=== PATIENT | male | born 1965 | race Two or more races ===

== ENCOUNTER 2020-01-23 13:27 | Outpatient (REF) | payer MEDICARE, MEDICAID, SELFPAY ==
--- NOTE | 2020-01-23 | MR_ITS ---
EXAMINATION: MR ABDOMEN WITHOUT AND WITH CONTRAST CLINICAL INFORMATION: Follow-up renal lesion. History of renal stones. COMPARISON: Previous renal ultrasound most recent September [address] of the abdomen and pelvis without contrast August 2018 and with contrast February 2015 TECHNIQUE: MR abdomen was performed without and with use of 8.5 mL intravenous Gadavist gadolinium contrast. Postcontrast images are performed in multiphase dynamic sequences. Imaging was performed in 3 planes. FINDINGS: LUNG BASES: The visualized lung bases are unremarkable. LIVER, GALLBLADDER, AND BILIARY TREE: The liver is normal in size, smooth in contour, and normal in signal. No focal hepatic lesion or biliary ductal dilatation is present. The gallbladder is unremarkable with no evidence of gallbladder wall thickening, or obvious pericholecystic inflammatory changes. PANCREAS: There are tiny cysts in the body and tail of the pancreas measuring 2 mm, for example axial image 11 series 4. The pancreas is otherwise unremarkable. The main pancreatic duct is normal. SPLEEN: Normal. ADRENAL GLANDS: Normal. KIDNEYS AND URETERS: There is a complex cystic lesion in the lower pole of the right kidney. This is heterogeneous in signal with low and high areas of signal on T1- and T2-weighted sequences. This is partially solid and partially cystic. Solid component is in the cortex and cystic component extends into the peripelvic region of the lower pole. Cystic component has areas of wall thickening and slightly thickened septations. This demonstrates gradual enhancement following intravenous contrast. This measures 2.8 x 4 cm in transverse and AP dimension and 3.5 cm in longitudinal dimension. This is new from contrast-enhanced CT scan of the abdomen and pelvis February 2015. In retrospect, this may be seen on noncontrast enhanced CT from August 2018. There is a small cyst in the lower pole of the left kidney. The kidneys are otherwise unremarkable. GASTROINTESTINAL TRACT: No bowel obstruction. No ascites or fluid collection. ABDOMINAL WALL: No significant hernia is appreciated. LYMPH NODES: No lymphadenopathy. VASCULAR: Unremarkable. OSSEOUS STRUCTURES: There are postsurgical changes to the lower lumbar spine from L3 to L5. IMPRESSION: 2.8 x 4 x 3.5 cm complex cystic lesion in the lower pole of the right kidney which demonstrates heterogeneous signal on T1- and T2-weighted sequences and gradual mild enhancement, Bosniak type IV. Appearance is worrisome for possible neoplasm. Tissue sampling is recommended. 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
== END 2020-01-23 13:28 | disposition home or self-care (01) ==
LOC: HO.MRI 13:27
PROVIDERS: Visit Provider Urology
DX: N20.0 Calculus of kidney (principal)
CPT/HCPCS: 74183

== ENCOUNTER → 2020-02-01 13:19 | Outpatient (BNVA) | payer MEDICARE, MEDICAID, SELFPAY | PROVIDERS: PCP Internal Medicine; Visit Provider Urology | DX: N28.89 Other specified disorders of kidney and ureter (principal); N20.0 Calculus of kidney; N40.1 Benign prostatic hyperplasia with lower urinary tract symptoms; N13.8 Other obstructive and reflux uropathy | CPT/HCPCS: 99214 ==

== ENCOUNTER 2020-02-15 11:11 | Outpatient (REF) | payer MEDICARE, MEDICAID, SELFPAY ==
[2020-02-15 13:32] LABS: Blood Urea Nitrogen 13 mg/dL (9-16); Estimated Glomerular Filt Rate > 60
== END 2020-02-15 11:12 | disposition home or self-care (01) ==
LOC: HO.LAB 11:11
PROVIDERS: PCP Internal Medicine; Visit Provider Urology
DX: N28.89 Other specified disorders of kidney and ureter (principal)
CPT/HCPCS: 82565; 84520

== ENCOUNTER 2020-02-15 11:35 | Day surgery (SDC) | payer MEDICARE, MEDICAID, SELFPAY ==
[2020-02-15 12:10] VITALS: BMI 30.4
[2020-02-15 12:15] LABS: MANUAL DIFF FLAG NO
--- NOTE | 2020-02-15 12:16 | CT_ITS ---
EXAMINATION: CT-GUIDED RIGHT KIDNEY BIOPSY CLINICAL INFORMATION: Complex cystic right renal lesion COMPARISON: Previous renal ultrasound September 2019 and MR of the abdomen January [address] of the abdomen and pelvis August 2018 TECHNIQUE: Procedure and risks and benefits of bleeding, infection and injury to the kidney were discussed and informed consent was obtained. The patient was positioned in the prone position. Limited axial images through the kidneys were performed. The left flank was prepped and draped in the usual sterile fashion. The skin and soft tissues were anesthetized with 1% lidocaine plain. Using CT guidance and a coaxial system, access to the slightly high attenuation lesion in the lower pole of the left kidney was obtained. 3 20-gauge core biopsies were obtained. As small fragments of tissue were obtained, an additional 22-gauge FNA specimen was also obtained. The patient received Versed 2.5 mg and fentanyl 125 mcg intravenously during the procedure. Total sedation time was 20 minutes. Patient dose 1 5 3 mg/cm. FINDINGS: There is a 3 cm slightly high attenuation lesion in the lower pole of the right kidney that was targeted for biopsy and fine-needle aspiration. There are small bilateral renal stones. There are postsurgical changes to the lower lumbar spine. CT/CT biopsy renal RT IMPRESSION: CT-guided right renal cortical biopsy and fine-needle aspiration.
[2020-02-15 12:19] LABS: Basophils Percent Auto 0.9 % (0-2); Eosinophils Absolute Auto 0.3 X10*3/uL (0.0-0.4); Eosinophils Percent Auto 5.6 % (0-4); Hemoglobin 13.6 g/dl (14.0-18.0); Imm Gran Abs Auto 0.01 X10*3/uL (0.00-0.03); Imm Gran Pct Auto 0.2 % (0.0-0.4); Lymphocytes Percent Auto 42.6 % (20-40); Mean Corpuscular Hemoglobin 29.4 pg (27.0-33.0); Mean Corpuscular Volume 86.6 fL (80-98); Mean Platelet Volume 10.3 fL (9.4-12.4); Monocytes Absolute Auto 0.3 X10*3/uL (0.1-1.2); Monocytes Percent Auto 6.4 % (2-11); Neutrophils Absolute Auto 2.1 X10*3/uL (2.0-8.3); Neutrophils Percent Auto 44.3 % (45-73); Platelet Count 143 X10*3/uL (160-400); Red Blood Count 4.62 X10*6/uL (4.60-5.80); Red Cell Distribution Width 11.9 % (11.0-16.0); White Blood Count 4.7 X10*3/uL (4.8-10.8)
[2020-02-15 12:21] LABS: INTERNATIONAL NORM RATIO 1.1 (0.9-1.1)
[2020-02-15 12:23] LABS: Partial Thromboplastin Time 35.3 SEC (24.1-38.0)
--- NOTE | 2020-02-15 12:30 | CT_ITS ---
EXAMINATION: CT-GUIDED RIGHT KIDNEY BIOPSY CLINICAL INFORMATION: Complex cystic right renal lesion COMPARISON: Previous renal ultrasound September 2019 and MR of the abdomen January [address] of the abdomen and pelvis August 2018 TECHNIQUE: Procedure and risks and benefits of bleeding, infection and injury to the kidney were discussed and informed consent was obtained. The patient was positioned in the prone position. Limited axial images through the kidneys were performed. The left flank was prepped and draped in the usual sterile fashion. The skin and soft tissues were anesthetized with 1% lidocaine plain. Using CT guidance and a coaxial system, access to the slightly high attenuation lesion in the lower pole of the left kidney was obtained. 3 20-gauge core biopsies were obtained. As small fragments of tissue were obtained, an additional 22-gauge FNA specimen was also obtained. The patient received Versed 2.5 mg and fentanyl 125 mcg intravenously during the procedure. Total sedation time was 20 minutes. Patient dose 1 5 3 mg/cm. FINDINGS: There is a 3 cm slightly high attenuation lesion in the lower pole of the right kidney that was targeted for biopsy and fine-needle aspiration. There are small bilateral renal stones. There are postsurgical changes to the lower lumbar spine. CT/CT guided aspiration renal IMPRESSION: CT-guided right renal cortical biopsy and fine-needle aspiration.
--- NOTE | 2020-02-15 12:30 | CT_ITS ---
EXAMINATION: CT-GUIDED RIGHT KIDNEY BIOPSY CLINICAL INFORMATION: Complex cystic right renal lesion COMPARISON: Previous renal ultrasound September 2019 and MR of the abdomen January [address] of the abdomen and pelvis August 2018 TECHNIQUE: Procedure and risks and benefits of bleeding, infection and injury to the kidney were discussed and informed consent was obtained. The patient was positioned in the prone position. Limited axial images through the kidneys were performed. The left flank was prepped and draped in the usual sterile fashion. The skin and soft tissues were anesthetized with 1% lidocaine plain. Using CT guidance and a coaxial system, access to the slightly high attenuation lesion in the lower pole of the left kidney was obtained. 3 20-gauge core biopsies were obtained. As small fragments of tissue were obtained, an additional 22-gauge FNA specimen was also obtained. The patient received Versed 2.5 mg and fentanyl 125 mcg intravenously during the procedure. Total sedation time was 20 minutes. Patient dose 1 5 3 mg/cm. FINDINGS: There is a 3 cm slightly high attenuation lesion in the lower pole of the right kidney that was targeted for biopsy and fine-needle aspiration. There are small bilateral renal stones. There are postsurgical changes to the lower lumbar spine. CT/CT guided needle placement IMPRESSION: CT-guided right renal cortical biopsy and fine-needle aspiration.
[2020-02-15 13:45] VITALS: BP 147/96; PULSE 55; RESP 20; TEMP 37; O2SAT 97
--- NOTE | 2020-02-15 13:45 | HO.RADPN ---
RADIOLOGY Narrative Narrative: Right cystic renal mass core biopsy and fna using coaxial system and CT guidance. 3 20g core biopsies and one 22g fna obtained. No complication.
[2020-02-15] MEDS: Lidocaine HCl 1 % 20 ML VIAL 10 ML SUBCUT (14:01)
[2020-02-15 14:15] VITALS: BP 148/90; PULSE 55; RESP 18; O2SAT 97
[2020-02-15 14:45] VITALS: BP 142/90; PULSE 63; RESP 18; O2SAT 97
[2020-02-15 15:15] VITALS: BP 133/80; PULSE 62; RESP 18; O2SAT 96
[2020-02-15 15:44] VITALS: BP 141/90; PULSE 62; RESP 18; TEMP 36.2; O2SAT 96
== END 2020-02-15 15:55 | disposition home or self-care (01) ==
PROVIDERS: Radiology Diagnostic Radiology; PCP Internal Medicine; Visit Provider Urology
DX: C64.1 Malignant neoplasm of right kidney, except renal pelvis (principal); Z87.442 Personal history of urinary calculi; I10 Essential (primary) hypertension; J45.40 Moderate persistent asthma, uncomplicated; F17.210 Nicotine dependence, cigarettes, uncomplicated
CPT/HCPCS: 10009; 36415; 50200; 77012; 82565; 84520; 85025; 85610; 85730; 88173; 88305; 88341; 88342; 99152; J2250; J3010

== ENCOUNTER → 2020-02-22 08:55 | Outpatient (BNVA) | payer MEDICARE, MEDICAID, SELFPAY | PROVIDERS: PCP Internal Medicine; Visit Provider Urology | DX: C64.1 Malignant neoplasm of right kidney, except renal pelvis (principal); Z98.890 Other specified postprocedural states | CPT/HCPCS: 99212 ==

== ENCOUNTER → 2020-04-08 10:54 | Outpatient (BNVA) | payer MEDICARE, MEDICAID, SELFPAY | PROVIDERS: Visit Provider Urology | DX: C64.1 Malignant neoplasm of right kidney, except renal pelvis (principal) | CPT/HCPCS: Q3014 ==

== ENCOUNTER 2020-05-06 10:05 | Outpatient (REF) | payer MEDICARE, MEDICAID, SELFPAY ==
[2020-05-06 11:10] LABS: Anion Gap 13 (12-20); Blood Urea Nitrogen 14 mg/dL (9-16); Calcium 9.1 mg/dL (8.4-10.2); Carbon Dioxide 28 mmol/L (22-29); Chloride 103 mmol/L (96-108); Estimated Glomerular Filt Rate > 60; Glucose Random 105 mg/dL (60-115); Potassium 4.7 mmol/l (3.3-5.1); Sodium 139 mmol/L (135-145)
== END 2020-05-06 10:06 | disposition home or self-care (01) ==
LOC: HO.LAB 10:05
PROVIDERS: PCP Internal Medicine; Visit Provider Urology
DX: C64.1 Malignant neoplasm of right kidney, except renal pelvis (principal)
CPT/HCPCS: 36415; 80048

== ENCOUNTER 2020-05-28 10:54 | Outpatient (REF) | payer MEDICARE, MEDICAID, SELFPAY | END 2020-05-28 10:55 | disposition home or self-care (01) | LOC: HO.LAB 10:54 | PROVIDERS: Visit Provider Internal Medicine | DX: Z20.822 Contact with and (suspected) exposure to COVID-19 (principal) | CPT/HCPCS: 36415; C9803; U0003; U0005 ==

== ENCOUNTER 2020-06-09 10:16 | Outpatient (REF) | payer MEDICARE, MEDICAID, SELFPAY | END 2020-06-09 10:17 | disposition home or self-care (01) | LOC: HO.LAB 10:16 | PROVIDERS: PCP Internal Medicine; Visit Provider Internal Medicine | DX: Z20.822 Contact with and (suspected) exposure to COVID-19 (principal) | CPT/HCPCS: 36415; C9803; U0003; U0005 ==

== ENCOUNTER → 2020-11-28 09:27 | Outpatient (BNVA) | payer MEDICARE, MEDICAID, SELFPAY | PROVIDERS: PCP Internal Medicine; Visit Provider Urology | DX: N28.1 Cyst of kidney, acquired (principal); N40.1 Benign prostatic hyperplasia with lower urinary tract symptoms; N13.8 Other obstructive and reflux uropathy; C64.9 Malignant neoplasm of unspecified kidney, except renal pelvis; M54.9 Dorsalgia, unspecified; M75.81 Other shoulder lesions, right shoulder; I10 Essential (primary) hypertension; F17.210 Nicotine dependence, cigarettes, uncomplicated | CPT/HCPCS: 99212 ==

== ENCOUNTER 2020-12-03 08:19 | Outpatient (REF) | payer MEDICARE, MEDICAID, SELFPAY ==
[2020-12-03 10:04] LABS: Blood Urea Nitrogen 17 mg/dL (9-16); Estimated Glomerular Filt Rate 48
== END 2020-12-03 08:20 | disposition home or self-care (01) ==
LOC: HO.LAB 08:19
PROVIDERS: PCP Internal Medicine; Visit Provider Urology
DX: R39.15 Urgency of urination (principal); C64.9 Malignant neoplasm of unspecified kidney, except renal pelvis
CPT/HCPCS: 36415; 82565; 84520

== ENCOUNTER 2020-12-04 15:23 | Outpatient (REF) | payer MEDICARE, MEDICAID, SELFPAY ==
--- NOTE | ~2020-12-04 | CT_ITS ---
EXAMINATION: CT ABDOMEN WITHOUT AND WITH CONTRAST CLINICAL INFORMATION: Malignant neoplasm of unspecified kidney. COMPARISON: MR abdomen 01/23/2020 TECHNIQUE: Contiguous axial thin section helical images of the abdomen were performed before and after the administration of oral contrast and 85 mL of Omnipaque 350 intravenous contrast. The data set was reformatted in the coronal and sagittal planes and reviewed on an independent workstation. This CT examination was performed using dose optimization techniques as appropriate, variously including the following: *Automated exposure control *Adjustment of mA and/or kV according to patient size (this includes techniques or standardized protocols for targeted exams where dose is matched to indication/reason for exam; i.e. extremities or head) *Use of iterative reconstruction technique DLP: 551 mGy-cm FINDINGS: LUNG BASES: The lung bases are clear. The heart size is normal. LIVER, GALLBLADDER, AND BILIARY TREE: The liver is normal size, contour and density. No focal lesion seen. There is no intrahepatic ductal dilatation. The gallbladder is unremarkable with no radiopaque calculi. No wall thickening. PANCREAS: The pancreas is homogeneous in echotexture and appears unremarkable. SPLEEN: The spleen is homogeneous in density and normal size. ADRENAL GLANDS AND KIDNEYS: The right kidney has been removed. The left kidney is normal size, shape and position. There are punctate hyperdensities in the upper, midpole and lower pole calyces of the left kidney, the largest hyperdensity/calcification measures 3 mm in midpole, likely tiny calculi image 69/3. No caliectasis or hydronephrosis seen. BOWEL LOOPS: There is scattered stool and gas in the right colon. The small bowel loops are normal caliber. The appendix is normal caliber. No free air or free fluid seen. The stomach is nondistended and appears unremarkable. LYMPH NODES: No abnormal sized retroperitoneal lymph nodes or mass seen. VASCULAR: Unremarkable. BONES: There are disc prostheses at the L3-L4 and L4-L5 disc levels stabilized with bilateral pedicle screws at the L3 and L5 vertebrae and interconnecting deb. No lytic or sclerotic process seen in the spine. CT/CT abdomen wo/w con IMPRESSION: Status post right nephrectomy with no residual tumor, mass or fluid seen. Punctate hyperdensities and calcifications in the upper, mid and left kidney likely nephrocalcinosis. No caliectasis or hydronephrosis seen. No abnormal size retroperitoneal lymph nodes seen.
[2020-12-04] MEDS: iohexoL 350 MG/ML 100 ML INFUS..BTL IV (16:16)
== END 2020-12-04 15:24 | disposition home or self-care (01) ==
LOC: HO.CT 15:23
PROVIDERS: PCP Internal Medicine; Visit Provider Urology
DX: C64.9 Malignant neoplasm of unspecified kidney, except renal pelvis (principal)
CPT/HCPCS: 74170; Q9967

== ENCOUNTER → 2020-12-16 11:29 | Outpatient (BNVA) | payer MEDICARE, MEDICAID, SELFPAY | PROVIDERS: PCP Internal Medicine; Visit Provider Urology | DX: C64.9 Malignant neoplasm of unspecified kidney, except renal pelvis (principal); N20.0 Calculus of kidney | CPT/HCPCS: Q3014 ==

== ENCOUNTER 2021-02-25 10:52 | Outpatient (REF) | payer MEDICARE, MEDICAID, SELFPAY ==
--- NOTE | ~2021-02-25 | XR_ITS ---
EXAMINATION: BILATERAL HAND X-RAY CLINICAL INFORMATION: Pain. COMPARISON: Previous right hand x-ray June 2006. TECHNIQUE: 3 views of each hand. FINDINGS: Left: The left 5th finger is short with missing phalanx, question postsurgical versus congenital. Bone alignment is normal. No fracture or dislocation is seen. Joint spaces are normal. Soft tissues are normal. Right: Bone alignment is normal. No acute fracture or dislocation is seen. There is evidence of old trauma to the distal 5th metacarpal bone. There is soft tissue calcification or ossification adjacent to the volar middle phalanx at the DIP joint. This is probably related to old trauma. Joint spaces and soft tissues are otherwise normal. XR/XR hand RT min 3V IMPRESSION: Left: Short left 5th finger, question postsurgical versus congenital. Right: Old trauma to the 5th finger.
--- NOTE | ~2021-02-25 | XR_ITS ---
EXAMINATION: BILATERAL HAND X-RAY CLINICAL INFORMATION: Pain. COMPARISON: Previous right hand x-ray June 2006. TECHNIQUE: 3 views of each hand. FINDINGS: Left: The left 5th finger is short with missing phalanx, question postsurgical versus congenital. Bone alignment is normal. No fracture or dislocation is seen. Joint spaces are normal. Soft tissues are normal. Right: Bone alignment is normal. No acute fracture or dislocation is seen. There is evidence of old trauma to the distal 5th metacarpal bone. There is soft tissue calcification or ossification adjacent to the volar middle phalanx at the DIP joint. This is probably related to old trauma. Joint spaces and soft tissues are otherwise normal. XR/XR hand LT min 3V IMPRESSION: Left: Short left 5th finger, question postsurgical versus congenital. Right: Old trauma to the 5th finger.
== END 2021-02-25 10:53 | disposition home or self-care (01) ==
LOC: HO.XRAY 10:52
PROVIDERS: PCP Internal Medicine; Visit Provider Internal Medicine
DX: M25.541 Pain in joints of right hand (principal); M25.542 Pain in joints of left hand; M79.644 Pain in right finger(s); M79.645 Pain in left finger(s)
CPT/HCPCS: 73130

== ENCOUNTER 2021-04-09 09:26 | Outpatient (REF) | payer MEDICARE, MEDICAID, SELFPAY ==
--- NOTE | 2021-04-09 10:00 | EMG_ITS ---
Bilateral median and ulnar motor and sensory studies were performed. Bilateral radial sensory studies were performed and paraspinal muscles were tested. IMPRESSION: 1. Mild bilateral median neuropathy across carpal tunnel. 2. Mild bilateral ulnar neuropathy across cubital tunnel. MD MARILYN Phillips/JOLLY / [phone]
== END 2021-04-09 09:27 | disposition home or self-care (01) ==
LOC: HO.NEURO 09:26
PROVIDERS: Visit Provider Internal Medicine
DX: M25.541 Pain in joints of right hand (principal); M25.542 Pain in joints of left hand; M79.644 Pain in right finger(s); M79.645 Pain in left finger(s); N28.9 Disorder of kidney and ureter, unspecified
CPT/HCPCS: 95886; 95911

== ENCOUNTER 2021-06-10 09:58 | Outpatient (REF) | payer MEDICARE, MEDICAID, SELFPAY ==
--- NOTE | ~2021-06-10 | US_ITS ---
EXAMINATION: US RENAL CLINICAL INFORMATION: Kidney stones. COMPARISON: CT abdomen 12/04/2020. MR abdomen 01/23/2020. Ultrasound renals 10/15/2019 and 02/07/2019. TECHNIQUE: Real-time imaging of the left kidney and bladder. FINDINGS: RIGHT KIDNEY: Surgically removed. LEFT KIDNEY: 12.1 x 6.3 x 5.6 cm (SAG x AP x TRV). The kidney is normal in size, contour, and echogenicity. Renal cortical thickness is normal. No focal parenchymal lesions or hydronephrosis. There are several echogenic stones without caliectasis. 1. In midpole stone measures 0.29 x 0.20 x 0.16 cm. 2. The lower pole echogenic stone measuring 0.25 x 0.23 x 0.27 cm. 3. In midpole echogenic stone measures 0.45 x 0.24 x 0.33 cm. There are multiple echogenic foci, non-twinkle and non-shadowing. Question calcifications versus tiny stones. US/US renal LT IMPRESSION: At least 3 echogenic stones without caliectasis in left kidney. There are small non-shadowing and non-twinkle stones versus calcification in left kidney. The right kidney has been surgically removed.
== END 2021-06-10 09:59 | disposition home or self-care (01) ==
LOC: HO.US 09:58
PROVIDERS: PCP Internal Medicine; Visit Provider Urology
DX: N20.0 Calculus of kidney (principal)
CPT/HCPCS: 76775

== ENCOUNTER → 2021-06-16 15:20 | Outpatient (BNVA) | payer MEDICARE, MEDICAID, SELFPAY | PROVIDERS: PCP Internal Medicine; Visit Provider Urology | DX: N40.1 Benign prostatic hyperplasia with lower urinary tract symptoms (principal); N13.8 Other obstructive and reflux uropathy; N20.0 Calculus of kidney; C64.9 Malignant neoplasm of unspecified kidney, except renal pelvis | CPT/HCPCS: 99212 ==

== ENCOUNTER 2021-09-28 09:59 | Outpatient (REF) | payer MEDICARE, MEDICAID, SELFPAY ==
--- NOTE | ~2021-09-28 | US_ITS ---
EXAMINATION: US RETROPERITONEAL LIMITED (RENAL ONLY) CLINICAL INFORMATION: Malignant neoplasm of unspecified kidney, except renal pelvis. COMPARISON: US retroperitoneal limited (renal only) 06/10/2021 and 10/15/2019. CT abdomen without and with contrast 12/04/2020. CT-guided right kidney biopsy 02/15/2020. MR abdomen without and with contrast 01/23/2020. XR abdomen KUB 05/03/2018 and 03/03/2016. TECHNIQUE: Real-time imaging of the kidneys. FINDINGS: RIGHT KIDNEY: Surgically absent. No soft tissue mass in the right renal fossa. LEFT KIDNEY: 12.9 x 6.2 x 4.8 cm (SAG x AP x TRV). The kidney is normal in size, contour, and echogenicity. Renal cortical thickness is normal. There is a 4 mm stone in the upper pole. No focal parenchymal lesions or hydronephrosis. US/US renal BI IMPRESSION: Surgically absent right kidney. Small left renal stone.
--- NOTE | ~2021-09-28 | XR_ITS ---
EXAMINATION: XR CHEST CLINICAL INFORMATION: C64.9 - Malignant neoplasm of unspecified kidney COMPARISON: Chest radiographs 04/12/2019, 12/13/2018; CT abdomen 12/04/2020 TECHNIQUE: Frontal view of the chest was obtained. FINDINGS: The lungs are clear. There is no visible mass or airspace opacity, pleural reaction, or effusion. Heart size normal. The hilar and mediastinal contours and visualized bony structures are unremarkable. XR/XR chest 1V IMPRESSION: Unremarkable examination.
== END 2021-09-28 10:00 | disposition home or self-care (01) ==
LOC: HO.US 09:59
PROVIDERS: PCP Internal Medicine; Visit Provider Urology
DX: C64.9 Malignant neoplasm of unspecified kidney, except renal pelvis (principal)
CPT/HCPCS: 71045; 76775

== ENCOUNTER → 2021-10-09 09:19 | Outpatient (BNVA) | payer MEDICARE, MEDICAID, SELFPAY | PROVIDERS: PCP Internal Medicine; Visit Provider Urology | DX: N52.9 Male erectile dysfunction, unspecified (principal); N20.0 Calculus of kidney; R68.82 Decreased libido; C64.9 Malignant neoplasm of unspecified kidney, except renal pelvis | CPT/HCPCS: 51798; Q3014 ==

== ENCOUNTER 2021-11-02 10:08 | Outpatient (REF) | payer MEDICARE, MEDICAID, SELFPAY ==
[2021-11-02 10:56] LABS: Estimated Average Glucose 105 mg/dL; Hemoglobin A1c % 5.3 %
[2021-11-02 12:12] LABS: Anion Gap 10 (12-20); Blood Urea Nitrogen 21 mg/dL (9-16); Calcium 9.2 mg/dL (8.4-10.2); Carbon Dioxide 27 mmol/L (22-29); Chloride 104 mmol/L (96-108); Cholesterol 175 mg/dL; Estimated Glomerular Filt Rate 44; Glucose Fasting 95 mg/dL (60-99); HDL Cholesterol 27 mg/dL; LDL Cholesterol Calculated 81 mg/dl; Potassium 4.3 mmol/L (3.3-5.1); Sodium 137 mmol/L (135-145); Triglycerides 339 mg/dL
[2021-11-08 13:51] LABS: Testosterone, Total 228 ng/dL (250-1100)
== END 2021-11-02 10:09 | disposition home or self-care (01) ==
LOC: HO.LAB 10:08
PROVIDERS: PCP Internal Medicine; Visit Provider Urology
DX: E29.1 Testicular hypofunction (principal); N52.9 Male erectile dysfunction, unspecified
CPT/HCPCS: 36415; 80048; 80061; 83036; 84403

== ENCOUNTER 2021-11-09 08:55 | Outpatient (REF) | payer MEDICARE, MEDICAID, SELFPAY ==
[2021-11-09 09:23] LABS: MANUAL DIFF FLAG NO
[2021-11-09 10:19] LABS: Basophils Percent Auto 0.6 % (0-2); Eosinophils Absolute Auto 0.5 X10*3/uL (0.0-0.4); Eosinophils Percent Auto 8.3 % (0-4); Hematocrit 40.3 % (42.0-52.0); Hemoglobin 13.4 g/dl (14.0-18.0); Imm Gran Abs Auto 0.01 X10*3/uL (0.00-0.03); Imm Gran Pct Auto 0.2 % (0.0-0.4); Lymphocytes Absolute Auto 2.7 X10*3/uL (1.2-4.9); Lymphocytes Percent Auto 50.1 % (20-40); Mean Corpuscular HGB Conc 33.3 g/dl (31.0-36.0); Mean Corpuscular Hemoglobin 29.1 pg (27.0-33.0); Mean Corpuscular Volume 87.6 fL (80.0-98.0); Mean Platelet Volume 10.4 fL (9.4-12.4); Monocytes Absolute Auto 0.4 X10*3/uL (0.1-1.2); Monocytes Percent Auto 7.9 % (2-11); Neutrophils Absolute Auto 1.8 x10*3/uL (2.0-8.3); Neutrophils Percent Auto 32.9 % (45-73); Platelet Count 159 X10*3/uL (160-400); Red Cell Distribution Width 12.2 % (11.0-16.0); White Blood Count 5.4 X10*3/uL (4.8-10.8)
[2021-11-09 10:27] LABS: Appearance Urine CLEAR; Color Urine YELLOW; Glucose Urine UA NEG (NEG); Leukocyte Esterase Urine NEG (NEG); Nitrite Urine NEG (NEG); Specific Gravity - Urine 1.025 (1.005-1.025); Urine Blood NEG (NEG); Urine Ketones NEG (NEG); Urine Protein NEG (NEG-TRACE)
[2021-11-09 11:00] LABS: Anion Gap 10 (12-20); Blood Urea Nitrogen 34 mg/dL (9-16); Carbon Dioxide 28 mmol/L (22-29); Chloride 102 mmol/L (96-108); Estimated Glomerular Filt Rate 34; Magnesium 2.4 mg/dL (1.6-2.6); Phosphorus 3.6 mg/dL (2.7-4.5); Potassium 4.1 mmol/L (3.3-5.1); Sodium 136 mmol/L (135-145)
[2021-11-09 11:13] LABS: Vitamin D 25-OH Total 21.5 ng/mL (>30)
[2021-11-09 11:59] LABS: Microalbum/Creatinine Ratio Ur 2.7 ug/mg cr; Total Protein Urine Random < 7 mg/dL (<12)
[2021-11-10 11:22] LABS: Calcium (PTHI) 9.1 mg/dL (8.6-10.3); PTHI 100 pg/mL (16-77)
== END 2021-11-09 08:56 | disposition home or self-care (01) ==
LOC: HO.LAB 08:55
PROVIDERS: PCP Internal Medicine; Visit Provider Internal Medicine Nephrology
DX: I12.9 Hypertensive chronic kidney disease with stage 1 through stage 4 chronic kidney disease, or unspecified chronic kidney disease (principal); N18.31 Chronic kidney disease, stage 3a; N20.0 Calculus of kidney
CPT/HCPCS: 36415; 80051; 81003; 82040; 82043; 82306; 82310; 82565; 83735; 83970; 84100; 84156; 84520; 85025; 87086

== ENCOUNTER 2021-11-25 08:23 | Outpatient (AMB) | payer MEDICARE, MEDICAID, SELFPAY ==
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
== END 2021-11-25 16:13 | disposition home or self-care (01) ==
LOC: HO.HUSH 08:23
PROVIDERS: PCP Internal Medicine; Visit Provider Urology
DX: R79.89 Other specified abnormal findings of blood chemistry (principal); N52.9 Male erectile dysfunction, unspecified; R68.82 Decreased libido
CPT/HCPCS: 99499

== ENCOUNTER 2021-12-10 07:07 | Outpatient (REF) | payer MEDICARE, MEDICAID, SELFPAY ==
[2021-12-10 07:25] LABS: MANUAL DIFF FLAG NO
[2021-12-10 07:35] LABS: Basophils Absolute Auto 0.1 X10*3/uL (0.0-0.2); Basophils Percent Auto 0.7 % (0-2); Eosinophils Absolute Auto 0.3 X10*3/uL (0.0-0.4); Eosinophils Percent Auto 3.8 % (0-4); Hematocrit 37.5 % (42.0-52.0); Hemoglobin 13.1 g/dl (14.0-18.0); Imm Gran Abs Auto 0.02 X10*3/uL (0.00-0.03); Imm Gran Pct Auto 0.3 % (0.0-0.4); Lymphocytes Absolute Auto 2.9 X10*3/uL (1.2-4.9); Lymphocytes Percent Auto 41.5 % (20-40); Mean Corpuscular HGB Conc 34.9 g/dl (31.0-36.0); Mean Corpuscular Hemoglobin 29.6 pg (27.0-33.0); Mean Corpuscular Volume 84.7 fL (80.0-98.0); Mean Platelet Volume 9.7 fL (9.4-12.4); Monocytes Absolute Auto 0.6 X10*3/uL (0.1-1.2); Monocytes Percent Auto 8.7 % (2-11); Neutrophils Absolute Auto 3.2 x10*3/uL (2.0-8.3); Platelet Count 152 X10*3/uL (160-400); Red Blood Count 4.43 X10*6/uL (4.60-5.80); Red Cell Distribution Width 12.3 % (11.0-16.0)
[2021-12-10 07:57] LABS: Albumin Level 3.9 g/dL (3.5-5.0); Anion Gap 13 (12-20); Blood Urea Nitrogen 32 mg/dL (9-16); Calcium 8.7 mg/dL (8.4-10.2); Carbon Dioxide 27 mmol/L (22-29); Chloride 102 mmol/L (96-108); Estimated Glomerular Filt Rate 35; Phosphorus 3.5 mg/dL (2.7-4.5); Potassium 3.4 mmol/L (3.3-5.1); Sodium 139 mmol/L (135-145)
[2021-12-10 08:15] LABS: Appearance Urine Clear; Color Urine Yellow; Glucose Urine UA Negative (Negative); Leukocyte Esterase Urine Trace (Negative); Nitrite Urine Negative (Negative); PH 5.5 (5.0-8.0); Urine Blood Negative (Negative); Urine Ketones Trace mg/dL (Negative); Urine Protein 30 (1+) mg/dL (Neg-Trace)
[2021-12-10 08:17] LABS: Vitamin D 25-OH Total 25.9 ng/mL (>30)
[2021-12-10 08:43] LABS: Protein/Creatinine Ratio, Ur 0.03 (<0.2); Total Protein Urine Random 10 mg/dL (<12)
[2021-12-10 10:38] LABS: Bacteria Urine None Seen (None Seen); RBC Urine 0-2 /HPF (0-2); Squamous Epithelial Cell Urine 0-2 /HPF (0-2); WBC Urine 0-5 /HPF (0-5)
[2021-12-11 17:51] LABS: Calcium (PTHI) 8.9 mg/dL (8.6-10.3); PTHI 182 pg/mL (16-77)
== END 2021-12-10 07:08 | disposition home or self-care (01) ==
LOC: HO.LAB 07:07
PROVIDERS: PCP Internal Medicine; Visit Provider Internal Medicine Nephrology
DX: I12.9 Hypertensive chronic kidney disease with stage 1 through stage 4 chronic kidney disease, or unspecified chronic kidney disease (principal); N18.32 Chronic kidney disease, stage 3b; N20.0 Calculus of kidney
CPT/HCPCS: 36415; 80051; 81001; 82040; 82306; 82310; 82565; 83735; 83970; 84100; 84156; 84520; 85025

== ENCOUNTER 2022-04-30 15:08 | Outpatient (REF) | payer MEDICARE, MEDICAID, SELFPAY ==
--- NOTE | ~2022-04-30 | US_ITS ---
EXAMINATION: US RETROPERITONEAL LIMITED (RENAL ONLY) CLINICAL INFORMATION: Calculus of kidney. COMPARISON: Renal ultrasound 09/28/2021 TECHNIQUE: Real-time imaging of the kidneys. FINDINGS: RIGHT KIDNEY: Surgically absent. LEFT KIDNEY: 13.1 x 5.4 x 5.7 cm (SAG x AP x TRV). The kidney is normal in size, contour, and echogenicity. Renal cortical thickness is normal. No calculi or focal parenchymal lesions. No hydronephrosis. US/US renal BI IMPRESSION: No mass seen in the left kidney. Right kidney surgically absent.
== END 2022-04-30 15:09 | disposition home or self-care (01) ==
LOC: HO.US 15:08
PROVIDERS: PCP Internal Medicine; Visit Provider Urology
DX: C64.9 Malignant neoplasm of unspecified kidney, except renal pelvis (principal); N20.0 Calculus of kidney
CPT/HCPCS: 76775

== ENCOUNTER → 2022-05-12 08:14 | Outpatient (BNVA) | payer MEDICARE, MEDICAID, SELFPAY | PROVIDERS: PCP Internal Medicine; Visit Provider Urology | DX: C64.9 Malignant neoplasm of unspecified kidney, except renal pelvis (principal); E29.1 Testicular hypofunction; R39.15 Urgency of urination; N20.0 Calculus of kidney; R68.82 Decreased libido; E11.69 Type 2 diabetes mellitus with other specified complication; N52.1 Erectile dysfunction due to diseases classified elsewhere; R79.89 Other specified abnormal findings of blood chemistry; Z79.899 Other long term (current) drug therapy | CPT/HCPCS: 36415; 82306; 82565; 83001; 83002; 83970; 84270; 84402; 84403; 99212 ==

== ENCOUNTER 2022-05-12 09:21 | Outpatient (REF) | payer MEDICARE, MEDICAID, SELFPAY ==
[2022-05-12 11:24] LABS: Estimated Glomerular Filt Rate 46
[2022-05-12 11:42] LABS: Vitamin D 25-OH Total 14.7 ng/mL (>30)
[2022-05-13 15:39] LABS: Calcium (PTHI) 9.3 mg/dL (8.6-10.3); PTHI 69 pg/mL (16-77)
[2022-05-14 02:33] LABS: Follicle Stimulating Hormone 4.7 mIU/mL (1.6-8.0); Lutenizing Hormone 4.5 mIU/mL (1.5-9.3)
[2022-05-14 03:44] LABS: Sex Hormone Binding Globulin 26 nmol/L (10-50)
[2022-05-20 16:38] LABS: Testosterone, Free 50.7 pg/mL (35.0-155.0); Testosterone, Total 255 ng/dL (250-1100)
== END 2022-05-12 09:22 | disposition home or self-care (01) ==
LOC: HO.10HDL 09:21
PROVIDERS: Visit Provider Urology
DX: Z13.89 Encounter for screening for other disorder (principal)
CPT/HCPCS: 36415; 82306; 82565; 83001; 83002; 83970; 84270; 84402; 84403

== ENCOUNTER 2022-05-17 08:02 | Outpatient (REF) | payer MEDICARE, MEDICAID, SELFPAY | END 2022-05-17 08:03 | disposition home or self-care (01) | LOC: HO.LAB 08:02 | PROVIDERS: PCP Internal Medicine; Visit Provider Internal Medicine Nephrology | DX: Z13.89 Encounter for screening for other disorder (principal) ==

== ENCOUNTER 2022-06-30 08:12 | Outpatient (REF) | payer MEDICARE, MEDICAID, SELFPAY ==
[2022-06-30 10:35] LABS: Appearance Urine Clear; Color Urine Yellow; Glucose Urine UA Negative (Negative); Leukocyte Esterase Urine Negative (Negative); Nitrite Urine Negative (Negative); PH 6.5 (5.0-9.0); Specific Gravity - Urine 1.015 (1.005-1.025); Urine Blood Negative (Negative); Urine Ketones Negative (Negative); Urine Protein Negative (Neg-Trace)
[2022-06-30 10:40] LABS: Hematocrit 39.9 % (42.0-52.0); Hemoglobin 13.8 g/dl (14.0-18.0); Mean Corpuscular HGB Conc 34.6 g/dl (31.0-36.0); Mean Corpuscular Hemoglobin 29.2 pg (27.0-33.0); Mean Corpuscular Volume 84.4 fL (80.0-98.0); Mean Platelet Volume 10.5 fL (9.4-12.4); Platelet Count 166 X10*3/uL (160-400); Red Blood Count 4.73 X10*6/uL (4.60-5.80); Red Cell Distribution Width 11.5 % (11.0-16.0); White Blood Count 5.2 X10*3/uL (4.8-10.8)
[2022-06-30 11:24] LABS: Albumin Level 3.9 g/dL (3.5-5.0); Anion Gap 11 (12-20); Blood Urea Nitrogen 19 mg/dL (9-16); Calcium 8.8 mg/dL (8.4-10.2); Carbon Dioxide 30 mmol/L (22-29); Chloride 102 mmol/L (96-108); Estimated Glomerular Filt Rate 48; Phosphorus 3.7 mg/dL (2.7-4.5); Sodium 139 mmol/L (135-145)
[2022-06-30 11:31] LABS: Creatinine Urine 121.19 mg/dL; Microalbum/Creatinine Ratio Ur 4.1 ug/mg cr; Total Protein Urine Random < 7 mg/dL (<12)
[2022-07-01 13:13] LABS: Calcium (PTHI) 9.2 mg/dL (8.6-10.3); PTHI 113 pg/mL (16-77)
== END 2022-06-30 08:13 | disposition home or self-care (01) ==
LOC: HO.10HDL 08:12
PROVIDERS: Visit Provider Internal Medicine Nephrology
DX: N18.32 Chronic kidney disease, stage 3b (principal); N25.0 Renal osteodystrophy; N20.0 Calculus of kidney
CPT/HCPCS: 36415; 80051; 81003; 82040; 82043; 82306; 82310; 82565; 83735; 83970; 84100; 84156; 84520; 85027; 87086

== ENCOUNTER 2022-07-08 08:44 | Outpatient (REF) | payer MEDICARE, MEDICAID, SELFPAY ==
[2022-07-13 14:14] LABS: Testosterone, Total 326 ng/dL (250-1100)
== END 2022-07-08 08:45 | disposition home or self-care (01) ==
LOC: HO.10HDL 08:44
PROVIDERS: Visit Provider Urology
DX: R68.82 Decreased libido (principal)
CPT/HCPCS: 36415; 84403

== ENCOUNTER 2022-07-31 15:40 | Inpatient (IN) | payer MEDICARE, MEDICAID, SELFPAY ==
--- NOTE | ~2022-07-31 | US_ITS ---
EXAMINATION: US SOFT TISSUE NECK CLINICAL INFORMATION: Right periauricular and facial swelling. Evaluate for abscess/parotid gland involvement. COMPARISON: CT head dated 07/31/2022. TECHNIQUE: Ultrasound of the neck soft tissues is performed with high-frequency dhaliwal-scale imaging and color Doppler. FINDINGS: Minimal subcutaneous edema and heterogeneity in the region of the patient's complaint which could indicate minimal cellulitis. No organized fluid collection or abscess formation. The visualized portion of the parotid gland is unremarkable. US/US soft tiss head and/or neck IMPRESSION: Possible mild cellulitis in the region of the patient's complaint. No abscess formation.
--- NOTE | ~2022-07-31 | XR_ITS ---
EXAMINATION: XR CHEST CLINICAL INFORMATION: Altered mental status COMPARISON: Chest x-ray 09/28/2021 TECHNIQUE: Frontal oral view of the chest was obtained. 1620 hours FINDINGS: No significant abnormality is noted involving the heart, lungs, mediastinum, bony thorax or soft tissues. XR/XR chest 1V IMPRESSION: Unremarkable examination.
--- NOTE | ~2022-07-31 | CT_ITS ---
EXAMINATION: CT ABDOMEN AND PELVIS WITHOUT CONTRAST CLINICAL INFORMATION: History of renal cancer. Abdominal pain. COMPARISON: Renal ultrasound 04/30/2022. CT abdomen pelvis 12/04/2020 TECHNIQUE: Multidetector volumetric imaging was performed from the superior aspect of the liver through the pubic symphysis. Sagittal and coronal reformatted images were obtained on the technologist's workstation. This CT examination was performed using dose optimization techniques as appropriate, variously including the following: *Automated exposure control *Adjustment of mA and/or kV according to patient size (this includes techniques or standardized protocols for targeted exams where dose is matched to indication/reason for exam; i.e. extremities or head) *Use of iterative reconstruction technique DLP: 1363 mGy-cm FINDINGS: LUNG BASES: The visualized lung bases are unremarkable. LIVER, GALLBLADDER, AND BILIARY TREE: The liver is normal in size, shape, and attenuation. No focal hepatic lesion or biliary ductal dilatation is present. The gallbladder is unremarkable with no evidence of radiopaque gallstones, gallbladder wall thickening, or obvious pericholecystic inflammatory changes. PANCREAS: Unremarkable. SPLEEN: Unremarkable. ADRENAL GLANDS: Unremarkable. KIDNEYS AND URETERS: The right kidney is absent. The left kidney demonstrates vague medullary tip hyperdensities which may represent concentrated solute. No definitive left sided nephrolithiasis is identified. No left-sided hydronephrosis or perinephric inflammatory changes visualized. Minimal scattered renal vascular calcific atherosclerotic plaques are noted BLADDER: Physiologically distended. GASTROINTESTINAL TRACT: No intestinal dilatation or mural thickening. Normal appearance of the appendix. No free intraperitoneal fluid or gas collections identified. Normal appearance of the sigmoid mesentery and small bowel mesentery. Moderate physiologic appearing distention of the stomach. ABDOMINAL WALL: No significant hernia is appreciated. LYMPH NODES: Normal. VASCULAR: Mild left moderate diffuse scattered calcific atherosclerotic plaques. PELVIC VISCERA: Prostate measures 4.5 cm in diameter, slightly above normal limits of size. Seminal vesicles are normal in appearance aside from a right seminal vesicle benign-appearing dystrophic punctate calcification. OSSEOUS STRUCTURES: Bilateral transpedicular screws and interlocking rods are present spanning L3-L5. Interbody devices are present at L3-L4 and L4-L5 partial visualization is made of at least mild posterior broad-based disc bulge at L5-S1. No vertebral body compression deformities are visualized. CT/CT abdomen pelvis wo IV con IMPRESSION: 1. No acute abnormalities identified. 2. Status post right nephrectomy. 3. Vague medullary pyramidal calcifications within the left kidney which may represent a combination of mild medullary calcinosis and visualization of concentrated solute within the medullary tubules. Similar findings were present on the exam of 12/04/2020. No obstructing left-sided urolithiasis. 4. Nsiq-cq-zofqtpfy diffuse scattered calcific atherosclerotic plaques. 5. Status post L3-L5 anterior and posterior instrumented fusion. 6. Partially visualized mild-moderate posterior broad-based disc bulge at L5-S1.
--- NOTE | ~2022-07-31 | CT_ITS ---
EXAMINATION: CT HEAD WITHOUT CONTRAST CLINICAL INFORMATION: Altered mental status COMPARISON: 01/12/2020 TECHNIQUE: Contiguous axial imaging was performed from the skull base to vertex without intravenous administration of contrast. This CT examination was performed using dose optimization techniques as appropriate, variously including the following: *Automated exposure control *Adjustment of mA and/or kV according to patient size (this includes techniques or standardized protocols for targeted exams where dose is matched to indication/reason for exam; i.e. extremities or head) *Use of iterative reconstruction technique DLP: 995 mGy-cm FINDINGS: There is no midline shift. There is no mass effect. There is no hemorrhage. The basal cisterns appear patent. The posterior fossa is grossly within normal limits. There is no extra-axial collection. The dhaliwal-white matter is grossly unremarkable. There is a focus of decreased attenuation in the cervical pontine junction. Note is made of sinus disease on the bone windows. CT/CT head/brain wo IV con IMPRESSION: Limited exam from motion. No acute midline shift, mass effect or hemorrhage. Cannot rule out a small focus of decreased attenuation at the cervical pontine junction but this could be artifactual.
[2022-07-31 15:52] VITALS: BP 101/53; BP 103/54; PULSE 103; PULSE 90; RESP 15; TEMP 36.6; O2SAT 95; O2SAT 96; BMI 28.7
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
[2022-07-31 16:34] LABS: MANUAL DIFF FLAG NO
[2022-07-31 16:35] LABS: Basophils Percent Auto 0.1 % (0-2); Eosinophils Percent Auto 0.1 % (0-4); Hematocrit 42.2 % (42.0-52.0); Hemoglobin 14.2 g/dl (14.0-18.0); Imm Gran Abs Auto 0.08 X10*3/uL (0.00-0.03); Imm Gran Pct Auto 0.6 % (0.0-0.4); Lymphocytes Percent Auto 7.4 % (20-40); Mean Corpuscular HGB Conc 33.6 g/dl (31.0-36.0); Mean Corpuscular Hemoglobin 29.9 pg (27.0-33.0); Mean Corpuscular Volume 88.8 fL (80.0-98.0); Monocytes Absolute Auto 0.9 X10*3/uL (0.1-1.2); Monocytes Percent Auto 6.5 % (2-11); Neutrophils Absolute Auto 11.5 x10*3/uL (2.0-8.3); Neutrophils Percent Auto 85.3 % (45-73); Platelet Count 179 X10*3/uL (160-400); Red Blood Count 4.75 X10*6/uL (4.60-5.80); Red Cell Distribution Width 12.1 % (11.0-16.0); White Blood Count 13.5 X10*3/uL (4.8-10.8)
[2022-07-31 16:37] LABS: VBG Base Excess 2.2 mmol/L; VBG HCO3 30 mmol/L (22-26); VBG pCO2 62 mmHg; VBG pH 7.29 (7.32-7.43); VBG pO2 36 mmHg
[2022-07-31 16:37] LABS: Venous Blood Gas Refer to POC result
[2022-07-31 16:48] LABS: COVID-19 Test Negative (Negative); IDNOW Serial# BCCEAD1C
[2022-07-31 17:13] LABS: Potassium 5.9 mmol/L (3.3-5.1)
[2022-07-31 17:23] LABS: Acetaminophen LAB < 17 mcg/mL (<30); Alanine Aminotransferase 34 U/L (0-40); Albumin Level 4.2 g/dL (3.5-5.0); Alkaline Phosphatase 52 U/L (39-117); Anion Gap 13 (12-20); Aspartate Amino Transferase 39 U/L (5-37); Bilirubin Total 0.4 mg/dL (0.0-1.0); Blood Urea Nitrogen 23 mg/dL (9-16); Calcium 8.9 mg/dL (8.4-10.2); Carbon Dioxide 28 mmol/L (22-29); Chloride 104 mmol/L (96-108); Creatinine Clr Calc Pharmacy 42.8; Estimated Glomerular Filt Rate 31; Glucose Random 119 mg/dL (60-115); Magnesium 2.1 mg/dL (1.6-2.6); Salicylate < 5.0 mg/dL (15-30); Sodium 139 mmol/L (135-145); Total Protein 7.5 g/dL (6.5-8.0)
[2022-07-31] MEDS: cefTRIAXone sodium 1 GM in 0.9 % Sodium Chloride 50 ML IV (17:23)
--- NOTE | 2022-07-31 17:38 | PC.NURSE ---
pt belongings in [place]
[2022-07-31] MEDS: Sodium Polystyrene Sulfon/Sorb 15 GM/60 ML ORAL.SUSP 30 GM PO (17:43)
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
[2022-07-31 18:22] VITALS: BP 127/99; PULSE 84; RESP 16; O2SAT 98
[2022-07-31] MEDS: Enoxaparin Sodium 40 MG/0.4 ML SYRINGE SUBCUT (18:24)
--- NOTE | 2022-07-31 18:32 | PC.NURSE ---
gave pt his lovenox per jun, informed pt t/w would be back with anx to hang, pt stated leave me alone - educated pt r/t importance of abx to treat dental/oral abscess
[2022-07-31] MEDS: Clindamycin Phosphate/D5W 600 MG/50 ML PIGGYBACK 100 MG IV (19:21)
[2022-07-31] MEDS: Lactated Ringers 1,000 ML 125 ML IVCONT (19:22)
[2022-07-31 20:00] VITALS: BP 158/88; PULSE 90; RESP 15; TEMP 37.3; O2SAT 98
--- NOTE | 2022-07-31 20:11 | PC.NURSE ---
RN to RN report given to [facility] [place], Soheila. Soheila states pts room will be changed from [phone] to [phone] for closer observation. Will need some time to have room available. Soheila will tiger text tw when room is available and pt can be transferred. Pt and made aware of plan.
[2022-07-31] MEDS: traMADoL HCL 50 MG TABLET PO (21:57)
[2022-07-31] MEDS: Acetaminophen 325 MG TABLET 650 MG PO (21:58)
[2022-07-31] MEDS: 0.9 % Sodium Chloride Flush 3 ML SYRINGE IVFLUSH (21:59)
[2022-07-31 22:00] VITALS: BP 158/88; PULSE 90; RESP 15; TEMP 37.3; O2SAT 98
[2022-07-31 22:19] VITALS: BMI 28.7
[2022-07-31 22:49] VITALS: TEMP 37.7
[2022-08-01] VITALS (7 sets, daily range): BP systolic 103–142; BP diastolic 59–88; PULSE 63–85; RESP 14–20; TEMP 36.6–37.6; O2SAT 94–97
[2022-08-01] MEDS: QUEtiapine Fumarate 200 MG TABLET PO (00:49)
[2022-08-01] MEDS: traMADoL HCL 50 MG TABLET PO (03:00)
[2022-08-01] MEDS: Clindamycin Phosphate/D5W 600 MG/50 ML PIGGYBACK 50 MG IV ×3 (03:06→19:26)
[2022-08-01] MEDS: Lactated Ringers 1,000 ML 125 ML IVCONT ×3 (03:37→21:11)
[2022-08-01 06:48] LABS: MANUAL DIFF FLAG NO
[2022-08-01 06:52] LABS: Basophils Percent Auto 0.2 % (0-2); Hematocrit 39.8 % (42.0-52.0); Hemoglobin 13.5 g/dl (14.0-18.0); Imm Gran Abs Auto 0.03 X10*3/uL (0.00-0.03); Imm Gran Pct Auto 0.2 % (0.0-0.4); Lymphocytes Absolute Auto 2.1 X10*3/uL (1.2-4.9); Lymphocytes Percent Auto 17.7 % (20-40); Mean Corpuscular HGB Conc 33.9 g/dl (31.0-36.0); Mean Corpuscular Hemoglobin 29.7 pg (27.0-33.0); Mean Corpuscular Volume 87.7 fL (80.0-98.0); Mean Platelet Volume 10.4 fL (9.4-12.4); Neutrophils Absolute Auto 8.9 x10*3/uL (2.0-8.3); Neutrophils Percent Auto 73.9 % (45-73); Platelet Count 153 X10*3/uL (160-400); Red Blood Count 4.54 X10*6/uL (4.60-5.80); Red Cell Distribution Width 12.2 % (11.0-16.0); White Blood Count 12.1 X10*3/uL (4.8-10.8)
[2022-08-01 07:22] LABS: Alanine Aminotransferase 66 U/L (0-40); Albumin Level 3.6 g/dL (3.5-5.0); Alkaline Phosphatase 43 U/L (39-117); Aspartate Amino Transferase 217 U/L (5-37); Bilirubin Total 0.9 mg/dL (0.0-1.0); Blood Urea Nitrogen 27 mg/dL (9-16); Calcium 8.3 mg/dL (8.4-10.2); Estimated Glomerular Filt Rate 37; Glucose Fasting 111 mg/dL (60-99); Total Protein 6.4 g/dL (6.5-8.0)
[2022-08-01 07:49] LABS: Anion Gap 14 (12-20); Carbon Dioxide 24 mmol/L (22-29); Chloride 104 mmol/L (96-108); Potassium 4.7 mmol/L (3.3-5.1); Sodium 137 mmol/L (135-145)
[2022-08-01] MEDS: Acetaminophen 325 MG TABLET 650 MG PO ×2 (09:19→19:51)
--- NOTE | 2022-08-01 09:37 | MHC.CM.PN ---
PT REPORTS HE LIVES WITH HIS S/O AND IS INDEPENDENT WITH HIS CARE HE DENIES USE OF DME OR HAVING HOME SERVICES PT REPORTS HIS PCP IS AT [facility], HE DOES NOT KNOW THE NAME HE IS WILLIAM VARGASX DECLINES TO COMPLETE A HCP IMM DELIVERED CURRENT DC PLAN IS HOME WITH NO SERVICES S/O TO TRANSPORT
--- NOTE | 2022-08-01 09:53 | PHA.MEDREC ---
Pharmacy Consult ? Medication Reconciliation Pharmacy has completed the medication reconciliation. spoke with patient and over the phone. Both are poor historians and patient seems to be non-adherent to his prescribed medications. I used claim history to complete reconciliation. When I called she noted that only tamsulosin, quetiapine, lisinopril, atenolol, and suboxone films were what he seemed to be actively using. However, unlike the claim history, she claims he only takes 100mg of quetiapine at bedtime instead of 200mg as well as only 1 film of suboxone in the morning instead of 2. They both seemed very confused on what he was taking so medications that were recently filled and picked up were included.
--- NOTE | 2022-08-01 12:19 | HO.PM.IMPN ---
Subjective Subjective Date of Service: 08/01/22 Interval History: Seen and evaluated tie morning Right sided facial swelling More alert and interactive CPK trending down No fever or chills No other overnight events Review of Systems Review of Systems: Yes all other systems are reviewed and are negative Physical Exam Vital Signs: Vital Signs: Last Vital Signs Temp 98.7 F 08/01/22 11:16 Pulse 71 08/01/22 11:16 Resp 20 08/01/22 11:16 BP 139/85 08/01/22 11:16 Pulse Ox 94 08/01/22 11:16 O2 Del Method Room Air 08/01/22 11:16 BMI result Body Mass Index 28.7 Const: Other: Constitutional : Awake, interactive, not in distress Neck : Normal inspection, Supple Face: right sided swelling with mild tenderness, no erythema or drianage noted Cardiovascular : RRR, no JVP, no lower extremity edema Respiratory : good bilateral air entry, no crackles, wheezes or rhonchi Gastrointestinal: soft, lax, Normal bowel sounds, Non tender Skin : Warm, Dry Neurological : Alert & oriented x3, No focal deficit Objective Data Active Medications Acetaminophen (Acetaminophen 325 Mg Tablet) 650 mg PO Q6H PRN PRN Reason: Pain, Mild (Pain Scale 1-3) Last Admin: 08/01/22 09:19 Dose: 650 mg Documented By: SEBASTIAN Enoxaparin Sodium (Enoxaparin Sodium 40 Mg/0.4 Ml Syringe) 40 mg SUBCUT Q24H [facility] Last Admin: 07/31/22 18:24 Dose: 40 mg Documented By: RASHI Lactated Ringer's (Lr) 1,000 mls @ 125 mls/hr IVCONT .Q8H [facility] Last Admin: 08/01/22 12:12 Dose: 125 mls/hr Documented By: SEBASTIAN Clindamycin Phosphate (Cleocin) 600 mg in 50 mls @ 100 mls/hr IV Q8H [facility] Last Infusion: 08/01/22 12:12 Dose: 0 mls/hr Documented By: SEBASTIAN Ketorolac Tromethamine (Ketorolac Tromethamine 30 Mg/Ml Vial) 30 mg IVPUSH ONCE ONE Stop: 08/01/22 12:14 Ketorolac Tromethamine (Ketorolac Tromethamine 15 Mg/Ml Vial) 15 mg IVPUSH Q6H PRN PRN Reason: Pain, Moderate (Pain Scale 4-6 Sodium Chloride (0.9 % Sodium Chloride Flush 3 Ml Syringe) 3 ml IVFLUSH QSHIFT [facility] Last Admin: 08/01/22 09:14 Dose: Not Given Documented By: SEBASTIAN Non-Admin Reason: IV Running Labs 08/01/22 06:36 08/01/22 06:36 Labs: Laboratory Results - last 24 hr 07/31/22 07/31/22 07/31/22 16:27 16:27 16:27 MCV 88.8 MCH 29.9 MCHC 33.6 RDW 12.1 Plt Count 179 MPV 10.0 Immature Gran % (Auto) 0.6 H Neut % (Auto) 85.3 H Lymph % (Auto) 7.4 L [place] % (Auto) 6.5 Eos % (Auto) 0.1 Baso % (Auto) 0.1 Lymph # (Auto) 1.0 L [place] # (Auto) 0.9 Eos # (Auto) 0.0 Baso # (Auto) 0.0 Abs Immat Gran (auto) 0.08 H Absolute Neuts (auto) 11.5 H Absolute Nucleated RBC 0.000 Nucleated RBC % (auto) 0.0 VBG pH VBG pCO2 VBG pO2 VBG HCO3 VBG O2 Saturation VBG Base Excess Anion Gap 13 Estim Creat Clear Calc 42.8 Estimated GFR 31 Random Glucose 119 H Fasting Glucose Calcium 8.9 Magnesium 2.1 Total Bilirubin 0.4 AST 39 H ALT 34 Alkaline Phosphatase 52 Total Creatine Kinase 555 H Total Protein 7.5 Albumin 4.2 Salicylates < 5.0 L Acetaminophen < 17 COVID-19 (ALIX) Negative COVID-19 Clin Com See Note 07/31/22 08/01/22 08/01/22 16:31 06:36 06:36 MCV 87.7 MCH 29.7 MCHC 33.9 RDW 12.2 Plt Count 153 L MPV 10.4 Immature Gran % (Auto) 0.2 Neut % (Auto) 73.9 H Lymph % (Auto) 17.7 L [place] % (Auto) 8.0 Eos % (Auto) 0.0 Baso % (Auto) 0.2 Lymph # (Auto) 2.1 [place] # (Auto) 1.0 Eos # (Auto) 0.0 Baso # (Auto) 0.0 Abs Immat Gran (auto) 0.03 Absolute Neuts (auto) 8.9 H Absolute Nucleated RBC 0.000 Nucleated RBC % (auto) 0.0 VBG pH 7.29 L VBG pCO2 62 VBG pO2 36 VBG HCO3 30 H VBG O2 Saturation 58.0 VBG Base Excess 2.2 Anion Gap 14 Estim Creat Clear Calc 50.0 Estimated GFR 37 Random Glucose Fasting Glucose 111 H Calcium 8.3 L D Magnesium Total Bilirubin 0.9 AST 217 H ALT 66 H Alkaline Phosphatase 43 Total Creatine Kinase Total Protein 6.4 L Albumin 3.6 Salicylates Acetaminophen COVID-19 (ALIX) COVID-19 Clin Com 08/01/22 06:36 MCV MCH MCHC RDW Plt Count MPV Immature Gran % (Auto) Neut % (Auto) Lymph % (Auto) [place] % (Auto) Eos % (Auto) Baso % (Auto) Lymph # (Auto) [place] # (Auto) Eos # (Auto) Baso # (Auto) Abs Immat Gran (auto) Absolute Neuts (auto) Absolute Nucleated RBC Nucleated RBC % (auto) VBG pH VBG pCO2 VBG pO2 VBG HCO3 VBG O2 Saturation VBG Base Excess Anion Gap Estim Creat Clear Calc Estimated GFR Random Glucose Fasting Glucose Calcium Magnesium Total Bilirubin AST ALT Alkaline Phosphatase Total Creatine Kinase 9305 H Total Protein Albumin Salicylates Acetaminophen COVID-19 (ALIX) COVID-19 Clin Com Assessment and Plan (1) BRIAN (acute kidney injury): Status: Acute (2) Abscess, dental: Status: Acute (3) Rhabdomyolysis: Status: Acute (4) Accidental overdose: Status: Acute Plan 56-year-old male presents with altered mental status that somewhat improved with the administration of Narcan. Per his recount this is related to an extra Suboxone he took this afternoon. Also noted to have a dental abscess draining purulent material. Accidental overdose reports taking extra suboxone discussed with ; suspects ongoing opiate abuse will monitor on telemetry and follow O2 saturation addiction team eval BRIAN 2/2 Rhabdomyolysis Hx ongoing CKD2 improved to 1.9 IVF follow BMP Transaminitis 2/2 CPK leakage monitor LFT Right sided facial swelling likely 2/2 Dental abscess reported drainage into oral cavity US showing no clear abscess formation cover with clindamycin Full code Lovenox Will require overnight hospital stay to assess extent of opiate use and monitor for withdrawal as well as volume repletion to treat acute kidney injury/rhabdo Time Spent With Patient Time: Total time managing care of this patient today ____ minutes. Quality Stroke Does the patient have a stroke diagnosis?: No VTE Prior VTE?: No VTE Risk Level:: Medical - moderate - high VTE Device Contraindication: Treatment Not Indicated VTE Drug Contraindication: N/A - Med Ordered
[2022-08-01] MEDS: Ketorolac Tromethamine 30 MG/ML VIAL IVPUSH (13:05)
[2022-08-01] MEDS: Tamsulosin HCL 0.4 MG CAPSULE PO (13:06)
[2022-08-01] MEDS: atenoloL 100 MG TABLET PO (13:06)
[2022-08-01] MEDS: buPROPion HCl XL 150 MG TAB.ER.24H PO (13:06)
[2022-08-01] MEDS: amLODIPine Besylate 5 MG TABLET PO (13:06)
--- NOTE | 2022-08-01 15:18 | MHC.RECOVRN ---
Addendum entered by Karuna Drew 08/01/22 15:20: Also awaiting UDS results, continues to be uncollected. RN and PCT aware. Original Note: Attempted to meet with pt to conduct SUDE. Pt has many visitors in the room, will return at a later time. Per RN, pt was also not completely oriented this morning.
[2022-08-01] MEDS: Ketorolac Tromethamine 15 MG/ML VIAL IVPUSH ×2 (16:23→22:10)
[2022-08-01 16:43] LABS: Appearance Urine Clear; Color Urine Yellow; Glucose Urine UA Negative (Negative); Leukocyte Esterase Urine Negative (Negative); Nitrite Urine Negative (Negative); UMIC TRIGGER UACC YES; Urine Blood Small (1+) (Negative); Urine Ketones Negative (Negative); Urine Protein Trace mg/dL (Neg-Trace)
[2022-08-01 16:52] LABS: Bacteria Urine None Seen (None Seen); Hyaline Casts Urine 0-2 /LPF (0-2); RBC Urine 0-2 /HPF (0-2); Squamous Epithelial Cell Urine 0-2 /HPF (0-2); WBC Urine 0-5 /HPF (0-5)
[2022-08-01] MEDS: Enoxaparin Sodium 40 MG/0.4 ML SYRINGE SUBCUT (18:13)
[2022-08-01 19:14] LABS: Amphetamine Screen Urine Not Detected (Not Detect); Barbiturates, Urine Not Detected (Not Detect); Benzodiazepines Screen Urine POSITIVE (Not Detect); Cannabinoid Screen Urine Not Detected (Not Detect); Cocaine Screen Urine POSITIVE (Not Detect); Fentanyl, urine POSITIVE (Not Detect); Opiate Screen Urine POSITIVE (Not Detect); Phencyclidine Screen Urine Not Detected (Not Detect)
[2022-08-01] MEDS: Montelukast Sodium 10 MG TABLET PO (19:50)
[2022-08-01] MEDS: cloNIDine HCL 0.2 MG TABLET PO (19:50)
[2022-08-01] MEDS: QUEtiapine Fumarate 100 MG TABLET PO (22:06)
[2022-08-01] MEDS: 0.9 % Sodium Chloride Flush 3 ML SYRINGE IVFLUSH (22:07)
[2022-08-02] VITALS (7 sets, daily range): BP systolic 101–140; BP diastolic 52–70; PULSE 59–89; RESP 15–20; TEMP 36.3–37.1; O2SAT 97–98
[2022-08-02] MEDS: Clindamycin Phosphate/D5W 600 MG/50 ML PIGGYBACK 50 MG IV ×2 (03:31→12:28)
[2022-08-02] MEDS: Lactated Ringers 1,000 ML 125 ML IVCONT (04:02)
[2022-08-02] MEDS: Ketorolac Tromethamine 15 MG/ML VIAL IVPUSH ×3 (04:42→21:45)
[2022-08-02 06:31] LABS: MANUAL DIFF FLAG NO
[2022-08-02 06:46] LABS: Basophils Percent Auto 0.4 % (0-2); Eosinophils Absolute Auto 0.2 X10*3/uL (0.0-0.4); Eosinophils Percent Auto 2.1 % (0-4); Hematocrit 37.4 % (42.0-52.0); Hemoglobin 12.8 g/dl (14.0-18.0); Imm Gran Abs Auto 0.02 X10*3/uL (0.00-0.03); Imm Gran Pct Auto 0.3 % (0.0-0.4); Lymphocytes Absolute Auto 2.3 X10*3/uL (1.2-4.9); Lymphocytes Percent Auto 33.3 % (20-40); Mean Corpuscular HGB Conc 34.2 g/dl (31.0-36.0); Mean Corpuscular Hemoglobin 30.3 pg (27.0-33.0); Mean Corpuscular Volume 88.6 fL (80.0-98.0); Mean Platelet Volume 10.4 fL (9.4-12.4); Monocytes Absolute Auto 0.8 X10*3/uL (0.1-1.2); Neutrophils Absolute Auto 3.6 x10*3/uL (2.0-8.3); Neutrophils Percent Auto 51.9 % (45-73); Platelet Count 137 X10*3/uL (160-400); Red Blood Count 4.22 X10*6/uL (4.60-5.80); Red Cell Distribution Width 12.2 % (11.0-16.0)
[2022-08-02 07:19] LABS: Alanine Aminotransferase 91 U/L (0-40); Albumin Level 3.6 g/dL (3.5-5.0); Alkaline Phosphatase 43 U/L (39-117); Anion Gap 7 (12-20); Aspartate Amino Transferase 274 U/L (5-37); Bilirubin Direct 0.2 mg/dL (0.0-0.5); Bilirubin Total 0.7 mg/dL (0.0-1.0); Blood Urea Nitrogen 27 mg/dL (9-16); Calcium 8.4 mg/dL (8.4-10.2); Carbon Dioxide 30 mmol/L (22-29); Chloride 104 mmol/L (96-108); Creatinine Clr Calc Pharmacy 52.2; Estimated Glomerular Filt Rate 39; Glucose Fasting 90 mg/dL (60-99); Potassium 4.1 mmol/L (3.3-5.1); Sodium 137 mmol/L (135-145); Total Protein 6.2 g/dL (6.5-8.0)
[2022-08-02] MEDS: cloNIDine HCL 0.2 MG TABLET PO ×2 (09:18→21:41)
[2022-08-02] MEDS: amLODIPine Besylate 5 MG TABLET PO (09:18)
[2022-08-02] MEDS: atenoloL 100 MG TABLET PO (09:18)
[2022-08-02] MEDS: buPROPion HCl XL 150 MG TAB.ER.24H PO (09:18)
[2022-08-02] MEDS: Buprenorphine/Naloxone 2/0.5mg FILM 1 FILM SUBLINGUAL (09:18)
[2022-08-02] MEDS: Tamsulosin HCL 0.4 MG CAPSULE PO (09:18)
[2022-08-02] MEDS: Acetaminophen 325 MG TABLET 650 MG PO (09:32)
--- NOTE | 2022-08-02 11:36 | HO.SUDE ---
Met with pt in [phone] along with legal mediator to discuss substance use. present, pt provides permission to discuss with as well. At first pt denies being aware of events preceding hospitalization. In time, pt reports buying Percocet from the street which resulted in overdose. Pt was educated regarding fentanyl, pressed pills, and risk for overdose. Pt reports having not used opiates in years. Has been stable on Suboxone, 4 mg daily, x at least 4 years. Pt does not attribute Percocet to any contributing factor, denies cravings, denies pain. hypothesizes pt was angry/upset with something and chose to use the Percocet. Pt believes Suboxone dose is appropriate, encouraged to discuss hospitalization with provider. Pt declines recovery support/services at this time. Pt and have questions for hospitalist, CANDACE aware. Pt denies other questions or concerns. T/w available as needed.
--- NOTE | 2022-08-02 12:49 | HO.PM.IMPN ---
Subjective Subjective Date of Service: 08/02/22 Interval History: Seen and evaluated Right sided facial swelling going down More alert and interactive CPK trending down No fever or chills No other overnight events Review of Systems Review of Systems: Yes all other systems are reviewed and are negative Physical Exam Vital Signs: Vital Signs: Last Vital Signs Temp 98.2 F 08/02/22 12:00 Pulse 65 08/02/22 12:00 Resp 20 08/02/22 12:00 BP 114/70 08/02/22 12:00 Pulse Ox 98 08/02/22 12:00 O2 Del Method Room Air 08/02/22 12:00 BMI result Body Mass Index 28.7 Const: Other: Constitutional : Awake, interactive, not in distress Neck : Normal inspection, Supple Face: right sided swelling with no significant tenderness, no erythema or drianage noted Cardiovascular : RRR, no JVP, no lower extremity edema Respiratory : good bilateral air entry, no crackles, wheezes or rhonchi Gastrointestinal: soft, lax, Normal bowel sounds, Non tender Skin : Warm, Dry Neurological : Alert & oriented x3, No focal deficit Objective Data Active Medications Acetaminophen (Acetaminophen 325 Mg Tablet) 650 mg PO Q6H PRN PRN Reason: Pain, Mild (Pain Scale 1-3) Last Admin: 08/02/22 09:32 Dose: 650 mg Documented By: LON Albuterol Sulfate (Albuterol Sulfate 90 Mcg 8 Gm Inhaler) 2 puff INHALE Q4H PRN PRN Reason: Shortness Of Breath Or Wheezing Amlodipine Besylate (Amlodipine Besylate 5 Mg Tablet) 5 mg PO DAILY [facility]; Protocol Last Admin: 08/02/22 09:18 Dose: 5 mg Documented By: LON Atenolol (Atenolol 100 Mg Tablet) 100 mg PO DAILY [facility]; Protocol Last Admin: 08/02/22 09:18 Dose: 100 mg Documented By: LON Buprenorphine/Naloxone (Buprenorphine/Naloxone 2/0.5mg Film) 1 film SUBLINGUAL DAILY [facility] Last Admin: 08/02/22 09:18 Dose: 1 film Documented By: LON Bupropion HCl (Bupropion Hcl Xl 150 Mg Tab.Er.24h) 150 mg PO DAILY [facility] Last Admin: 08/02/22 09:18 Dose: 150 mg Documented By: LON Clonazepam (Clonazepam 1 Mg Tablet) 1 mg PO BEDTIME PRN PRN Reason: Anxiety Clonidine HCl (Clonidine Hcl 0.2 Mg Tablet) 0.2 mg PO BID [facility]; Protocol Last Admin: 08/02/22 09:18 Dose: 0.2 mg Documented By: LON Enoxaparin Sodium (Enoxaparin Sodium 40 Mg/0.4 Ml Syringe) 40 mg SUBCUT Q24H [facility] Last Admin: 08/01/22 18:13 Dose: 40 mg Documented By: ECTOR Lactated Ringer's (Lr) 1,000 mls @ 150 mls/hr IVCONT .Q6H40M [facility] Last Admin: 08/02/22 11:26 Dose: Not Given Documented By: LON Non-Admin Reason: previous bag infusing Clindamycin Phosphate (Cleocin) 600 mg in 50 mls @ 100 mls/hr IV Q8H [facility] Last Admin: 08/02/22 12:28 Dose: 50 mls/hr Documented By: LON Ketorolac Tromethamine (Ketorolac Tromethamine 15 Mg/Ml Vial) 15 mg IVPUSH Q6H PRN PRN Reason: Pain, Moderate (Pain Scale 4-6 Last Admin: 08/02/22 11:22 Dose: 15 mg Documented By: LON Montelukast Sodium (Montelukast Sodium 10 Mg Tablet) 10 mg PO BEDTIME [facility] Last Admin: 08/01/22 19:50 Dose: 10 mg Documented By: ASIF Quetiapine Fumarate (Quetiapine Fumarate 100 Mg Tablet) 100 mg PO BEDTIME [facility] Last Admin: 08/01/22 22:06 Dose: 100 mg Documented By: ASIF Sodium Chloride (0.9 % Sodium Chloride Flush 3 Ml Syringe) 3 ml IVFLUSH QSHIFT [facility] Last Admin: 08/02/22 09:10 Dose: Not Given Documented By: LON Non-Admin Reason: IV Running Tamsulosin HCl (Tamsulosin Hcl 0.4 Mg Capsule) 0.4 mg PO DAILY [facility] Last Admin: 08/02/22 09:18 Dose: 0.4 mg Documented By: LON Labs 08/02/22 06:00 08/02/22 06:00 Labs: Laboratory Results - last 24 hr 08/01/22 08/01/22 08/02/22 16:00 16:46 06:00 MCV 88.6 MCH 30.3 MCHC 34.2 RDW 12.2 Plt Count 137 L MPV 10.4 Immature Gran % (Auto) 0.3 Neut % (Auto) 51.9 Lymph % (Auto) 33.3 [place] % (Auto) 12.0 H Eos % (Auto) 2.1 Baso % (Auto) 0.4 Lymph # (Auto) 2.3 [place] # (Auto) 0.8 Eos # (Auto) 0.2 Baso # (Auto) 0.0 Abs Immat Gran (auto) 0.02 Absolute Neuts (auto) 3.6 Absolute Nucleated RBC 0.000 Nucleated RBC % (auto) 0.0 Anion Gap Estim Creat Clear Calc Estimated GFR Fasting Glucose Calcium Total Bilirubin Direct Bilirubin AST ALT Alkaline Phosphatase Total Creatine Kinase Total Protein Albumin Urine Color Yellow Urine Appearance Clear Urine pH 6.0 Ur Specific [place] 1.020 Urine Protein Trace Urine Glucose (UA) Negative Urine Ketones Negative Urine Blood Small (1+) H Urine Nitrite Negative Ur Leukocyte Esterase Negative Urine RBC 0-2 Urine WBC 0-5 Ur Squamous Epith Cells 0-2 Urine Bacteria None Seen Hyaline Casts 0-2 Urine Opiates Screen POSITIVE H Urine Fentanyl Screen POSITIVE H Ur Barbiturates Screen Not Detected Ur Phencyclidine Scrn Not Detected Ur Amphetamines Screen Not Detected U Benzodiazepines Scrn POSITIVE H Urine Cocaine Screen POSITIVE H U Marijuana (THC) Screen Not Detected 08/02/22 06:00 MCV MCH MCHC RDW Plt Count MPV Immature Gran % (Auto) Neut % (Auto) Lymph % (Auto) [place] % (Auto) Eos % (Auto) Baso % (Auto) Lymph # (Auto) [place]illi[place] # (Auto) Eos # (Auto) Baso # (Auto) Abs Immat Gran (auto) Absolute Neuts (auto) Absolute Nucleated RBC Nucleated RBC % (auto) Anion Gap 7 L Estim Creat Clear Calc 52.2 Estimated GFR 39 Fasting Glucose 90 Calcium 8.4 Total Bilirubin 0.7 Direct Bilirubin 0.2 AST 274 H ALT 91 H Alkaline Phosphatase 43 Total Creatine Kinase 9854 H Total Protein 6.2 L Albumin 3.6 Urine Color Urine Appearance Urine pH Ur Specific [place] Urine Protein Urine Glucose (UA) Urine Ketones Urine Blood Urine Nitrite Ur Leukocyte Esterase Urine RBC Urine WBC Ur Squamous Epith Cells Urine Bacteria Hyaline Casts Urine Opiates Screen Urine Fentanyl Screen Ur Barbiturates Screen Ur Phencyclidine Scrn Ur Amphetamines Screen U Benzodiazepines Scrn Urine Cocaine Screen U Marijuana (THC) Screen Assessment and Plan (1) BRIAN (acute kidney injury): Status: Acute (2) Abscess, dental: Status: Acute (3) Rhabdomyolysis: Status: Acute Plan 56-year-old male presents with altered mental status that somewhat improved with the administration of Narcan. Per his recount this is related to an extra Suboxone he took this afternoon. Also noted to have a dental abscess draining purulent material. Accidental overdose reports taking extra suboxone discussed with ; suspects ongoing opiate abuse will monitor on telemetry and follow O2 saturation addiction team eval BRIAN 2/2 Rhabdomyolysis Hx ongoing CKD2 improved to 1.8 CPK of 9800 IVF follow BMP Transaminitis 2/2 CPK leakage monitor LFT Right sided facial swelling likely 2/2 Dental abscess reported drainage into oral cavity US showing no clear abscess formation cover with clindamycin Full code Lovenox Will require overnight hospital stay to assess extent of opiate use and monitor for withdrawal as well as volume repletion to treat acute kidney injury/rhabdo Time Spent With Patient Time: Total time managing care of this patient today ____ minutes. Quality Stroke Does the patient have a stroke diagnosis?: No VTE Prior VTE?: No VTE Risk Level:: Medical - moderate - high VTE Device Contraindication: Treatment Not Indicated VTE Drug Contraindication: N/A - Med Ordered
[2022-08-02] MEDS: Lactated Ringers 1,000 ML 150 ML IVCONT (13:16)
[2022-08-02] MEDS: Enoxaparin Sodium 40 MG/0.4 ML SYRINGE SUBCUT (18:28)
[2022-08-02] MEDS: Clindamycin Phosphate/D5W 600 MG/50 ML PIGGYBACK 100 MG IV (18:35)
[2022-08-02] MEDS: QUEtiapine Fumarate 100 MG TABLET PO (21:41)
[2022-08-02] MEDS: Montelukast Sodium 10 MG TABLET PO (21:41)
[2022-08-02] MEDS: 0.9 % Sodium Chloride Flush 3 ML SYRINGE IVFLUSH (21:46)
[2022-08-03] VITALS (7 sets, daily range): BP systolic 112–144; BP diastolic 55–76; PULSE 52–86; RESP 17–20; TEMP 36.7–37.1; O2SAT 97–99
[2022-08-03] MEDS: Clindamycin Phosphate/D5W 600 MG/50 ML PIGGYBACK 100 MG IV ×2 (03:25→10:32)
[2022-08-03 07:10] LABS: MANUAL DIFF FLAG NO
[2022-08-03 07:12] LABS: Basophils Percent Auto 0.6 % (0-2); Eosinophils Absolute Auto 0.2 X10*3/uL (0.0-0.4); Eosinophils Percent Auto 2.3 % (0-4); Hematocrit 34.6 % (42.0-52.0); Hemoglobin 11.9 g/dl (14.0-18.0); Imm Gran Abs Auto 0.01 X10*3/uL (0.00-0.03); Imm Gran Pct Auto 0.1 % (0.0-0.4); Lymphocytes Percent Auto 28.5 % (20-40); Mean Corpuscular HGB Conc 34.4 g/dl (31.0-36.0); Mean Corpuscular Hemoglobin 30.2 pg (27.0-33.0); Mean Corpuscular Volume 87.8 fL (80.0-98.0); Mean Platelet Volume 10.4 fL (9.4-12.4); Monocytes Absolute Auto 0.6 X10*3/uL (0.1-1.2); Monocytes Percent Auto 8.9 % (2-11); Neutrophils Absolute Auto 4.1 x10*3/uL (2.0-8.3); Neutrophils Percent Auto 59.6 % (45-73); Platelet Count 126 X10*3/uL (160-400); Red Blood Count 3.94 X10*6/uL (4.60-5.80); Red Cell Distribution Width 12.1 % (11.0-16.0); White Blood Count 6.9 X10*3/uL (4.8-10.8)
[2022-08-03] MEDS: 0.9 % Sodium Chloride Flush 3 ML SYRINGE IVFLUSH (09:12)
[2022-08-03] MEDS: atenoloL 100 MG TABLET PO (09:12)
[2022-08-03] MEDS: amLODIPine Besylate 5 MG TABLET PO (09:12)
[2022-08-03] MEDS: buPROPion HCl XL 150 MG TAB.ER.24H PO (09:12)
[2022-08-03] MEDS: Buprenorphine/Naloxone 2/0.5mg FILM 1 FILM SUBLINGUAL (09:13)
[2022-08-03] MEDS: Tamsulosin HCL 0.4 MG CAPSULE PO (09:13)
[2022-08-03] MEDS: cloNIDine HCL 0.2 MG TABLET PO ×2 (09:13→20:40)
[2022-08-03] MEDS: Acetaminophen 325 MG TABLET 650 MG PO (09:13)
[2022-08-03 09:43] LABS: Anion Gap 9 (12-20); Blood Urea Nitrogen 25 mg/dL (9-16); Calcium 8.3 mg/dL (8.4-10.2); Carbon Dioxide 28 mmol/L (22-29); Chloride 104 mmol/L (96-108); Creatinine Clr Calc Pharmacy 59.7; Estimated Glomerular Filt Rate 45; Glucose Random 103 mg/dL (60-115); Potassium 3.8 mmol/L (3.3-5.1); Sodium 137 mmol/L (135-145)
[2022-08-03] MEDS: 0.9 % Sodium Chloride 1,000 ML 125 ML IVCONT ×2 (10:32→18:56)
--- NOTE | 2022-08-03 14:20 | HO.PM.IMPN ---
Subjective Subjective Date of Service: 08/03/22 Interval History: Seen and evaluated Right sided facial swelling going down alert and interactive CPK trending down to 5000s No fever or chills No other overnight events Review of Systems Review of Systems: Yes all other systems are reviewed and are negative Physical Exam Vital Signs: Vital Signs: Last Vital Signs Temp 98.0 F 08/03/22 11:23 Pulse 64 08/03/22 11:23 Resp 20 08/03/22 11:23 BP 117/68 08/03/22 11:23 Pulse Ox 97 08/03/22 11:23 O2 Del Method Room Air 08/03/22 11:23 BMI result Body Mass Index 28.7 Const: Other: Constitutional : Awake, interactive, not in distress Neck : Normal inspection, Supple Face: right sided swelling with no significant tenderness, no erythema or drianage noted Cardiovascular : RRR, no JVP, no lower extremity edema Respiratory : good bilateral air entry, no crackles, wheezes or rhonchi Gastrointestinal: soft, lax, Normal bowel sounds, Non tender Skin : Warm, Dry Neurological : Alert & oriented x3, No focal deficit Objective Data Active Medications Acetaminophen (Acetaminophen 325 Mg Tablet) 650 mg PO Q6H PRN PRN Reason: Pain, Mild (Pain Scale 1-3) Last Admin: 08/03/22 09:13 Dose: 650 mg Documented By: MARIELOS Albuterol Sulfate (Albuterol Sulfate 90 Mcg 8 Gm Inhaler) 2 puff INHALE Q4H PRN PRN Reason: Shortness Of Breath Or Wheezing Amlodipine Besylate (Amlodipine Besylate 5 Mg Tablet) 5 mg PO DAILY [facility]; Protocol Last Admin: 08/03/22 09:12 Dose: 5 mg Documented By: MARIELOS Atenolol (Atenolol 100 Mg Tablet) 100 mg PO DAILY [facility]; Protocol Last Admin: 08/03/22 09:12 Dose: 100 mg Documented By: MARIELOS Buprenorphine/Naloxone (Buprenorphine/Naloxone 2/0.5mg Film) 1 film SUBLINGUAL DAILY [facility] Last Admin: 08/03/22 09:13 Dose: 1 film Documented By: MARIELOS Bupropion HCl (Bupropion Hcl Xl 150 Mg Tab.Er.24h) 150 mg PO DAILY [facility] Last Admin: 08/03/22 09:12 Dose: 150 mg Documented By: MARIELOS Clonazepam (Clonazepam 1 Mg Tablet) 1 mg PO BEDTIME PRN PRN Reason: Anxiety Clonidine HCl (Clonidine Hcl 0.2 Mg Tablet) 0.2 mg PO BID [facility]; Protocol Last Admin: 08/03/22 09:13 Dose: 0.2 mg Documented By: MARIELOS Enoxaparin Sodium (Enoxaparin Sodium 40 Mg/0.4 Ml Syringe) 40 mg SUBCUT Q24H [facility] Last Admin: 08/02/22 18:28 Dose: 40 mg Documented By: LON Clindamycin Phosphate (Cleocin) 600 mg in 50 mls @ 100 mls/hr IV Q8H [facility] Last Infusion: 08/03/22 11:13 Dose: 0 mls/hr Documented By: MARIELOS Sodium Chloride (Ns) 1,000 mls @ 125 mls/hr IVCONT .Q8H [facility] Last Admin: 08/03/22 10:32 Dose: 125 mls/hr Documented By: MARIELOS Ketorolac Tromethamine (Ketorolac Tromethamine 15 Mg/Ml Vial) 15 mg IVPUSH Q6H PRN PRN Reason: Pain, Moderate (Pain Scale 4-6 Last Admin: 08/02/22 21:45 Dose: 15 mg Documented By: VAL Montelukast Sodium (Montelukast Sodium 10 Mg Tablet) 10 mg PO BEDTIME [facility] Last Admin: 08/02/22 21:41 Dose: 10 mg Documented By: VAL Quetiapine Fumarate (Quetiapine Fumarate 100 Mg Tablet) 100 mg PO BEDTIME [facility] Last Admin: 08/02/22 21:41 Dose: 100 mg Documented By: VAL Sodium Chloride (0.9 % Sodium Chloride Flush 3 Ml Syringe) 3 ml IVFLUSH QSHIFT [facility] Last Admin: 08/03/22 09:12 Dose: 3 ml Documented By: MARIELOS Tamsulosin HCl (Tamsulosin Hcl 0.4 Mg Capsule) 0.4 mg PO DAILY [facility] Last Admin: 08/03/22 09:13 Dose: 0.4 mg Documented By: MARIELOS Labs 08/03/22 06:08 08/03/22 08:45 Labs: Laboratory Results - last 24 hr 08/03/22 08/03/22 06:08 08:45 MCV 87.8 MCH 30.2 MCHC 34.4 RDW 12.1 Plt Count 126 L MPV 10.4 Immature Gran % (Auto) 0.1 Neut % (Auto) 59.6 Lymph % (Auto) 28.5 [place] % (Auto) 8.9 Eos % (Auto) 2.3 Baso % (Auto) 0.6 Lymph # (Auto) 2.0 [place] # (Auto) 0.6 Eos # (Auto) 0.2 Baso # (Auto) 0.0 Abs Immat Gran (auto) 0.01 Absolute Neuts (auto) 4.1 Absolute Nucleated RBC 0.000 Nucleated RBC % (auto) 0.0 Anion Gap 9 L Estim Creat Clear Calc 59.7 Estimated GFR 45 Random Glucose 103 Calcium 8.3 L Total Creatine Kinase 5776 H Assessment and Plan (1) Opiate withdrawal: Status: Acute (2) BRIAN (acute kidney injury): Status: Acute (3) Abscess, dental: Status: Acute (4) Rhabdomyolysis: Status: Acute Plan 56-year-old male presents with altered mental status that somewhat improved with the administration of Narcan. Per his recount this is related to an extra Suboxone he took this afternoon. Also noted to have a dental abscess draining purulent material. Accidental overdose reports taking extra suboxone discussed with ; suspects ongoing opiate abuse will monitor on telemetry and follow O2 saturation addiction team eval appreciated BRIAN 2/2 Rhabdomyolysis Hx ongoing CKD2 improved to 1.7 CPK of 5800 IVF follow BMP Transaminitis 2/2 CPK leakage monitor LFT Right sided facial swelling likely 2/2 Dental abscess reported drainage into oral cavity US showing no clear abscess formation cover with clindamycin Full code Lovenox Will require overnight hospital stay to assess extent of opiate use and monitor for withdrawal as well as volume repletion to treat acute kidney injury/rhabdo Time Spent With Patient Time: Total time managing care of this patient today ____ minutes. Quality Stroke Does the patient have a stroke diagnosis?: No VTE Prior VTE?: No VTE Risk Level:: Medical - moderate - high VTE Device Contraindication: Treatment Not Indicated VTE Drug Contraindication: N/A - Med Ordered
[2022-08-03] MEDS: Enoxaparin Sodium 40 MG/0.4 ML SYRINGE SUBCUT (17:36)
[2022-08-03] MEDS: Clindamycin Phosphate/D5W 600 MG/50 ML PIGGYBACK 50 MG IV (18:56)
[2022-08-03] MEDS: QUEtiapine Fumarate 100 MG TABLET PO (20:40)
[2022-08-03] MEDS: Montelukast Sodium 10 MG TABLET PO (20:40)
[2022-08-04] VITALS (8 sets, daily range): BP systolic 117–157; BP diastolic 58–99; PULSE 60–74; RESP 18–20; TEMP 36.3–37.1; O2SAT 96–100
[2022-08-04] MEDS: Clindamycin Phosphate/D5W 600 MG/50 ML PIGGYBACK 100 MG IV ×3 (03:10→18:03)
[2022-08-04] MEDS: 0.9 % Sodium Chloride Flush 3 ML SYRINGE IVFLUSH (03:10)
[2022-08-04] MEDS: 0.9 % Sodium Chloride 1,000 ML 125 ML IVCONT ×2 (03:11→10:56)
[2022-08-04 07:24] LABS: Anion Gap 11 (12-20); Blood Urea Nitrogen 20 mg/dL (9-16); Calcium 8.1 mg/dL (8.4-10.2); Carbon Dioxide 24 mmol/L (22-29); Chloride 108 mmol/L (96-108); Creatinine Clr Calc Pharmacy 64.6; Estimated Glomerular Filt Rate 50; Glucose Random 89 mg/dL (60-115); Potassium 3.9 mmol/L (3.3-5.1); Sodium 139 mmol/L (135-145)
[2022-08-04] MEDS: amLODIPine Besylate 5 MG TABLET PO (08:31)
[2022-08-04] MEDS: cloNIDine HCL 0.2 MG TABLET PO ×2 (08:31→21:30)
[2022-08-04] MEDS: atenoloL 100 MG TABLET PO (08:31)
[2022-08-04] MEDS: Buprenorphine/Naloxone 2/0.5mg FILM 1 FILM SUBLINGUAL (08:31)
[2022-08-04] MEDS: Acetaminophen 325 MG TABLET 650 MG PO (08:31)
[2022-08-04] MEDS: Tamsulosin HCL 0.4 MG CAPSULE PO (08:32)
[2022-08-04] MEDS: buPROPion HCl XL 150 MG TAB.ER.24H PO (08:32)
--- NOTE | 2022-08-04 10:28 | MHC.CM.PN ---
Per ROUNDS discussion, Patient has vomited blood and is not yet medically cleared for dc. Home is the goal and CM will continue to follow.
--- NOTE | 2022-08-04 12:53 | P.PNIM_ITS ---
Subjective Subjective Date of Service: 08/04/22 Interval History: Seen and evaluated Episode of vomitus with streak of blood this morning Right sided facial swelling going down alert and interactive CPK trending down to 3000s No fever or chills No other overnight events Review of Systems Review of Systems: Yes all other systems are reviewed and are negative Physical Exam Vital Signs: Vital Signs: Last Vital Signs Temp 97.4 F 08/04/22 11:59 Pulse 74 08/04/22 11:59 Resp 20 08/04/22 11:59 BP 145/78 H 08/04/22 11:59 Pulse Ox 98 08/04/22 11:59 O2 Del Method Room Air 08/04/22 11:04 BMI result Body Mass Index 28.7 Const: Other: Constitutional : Awake, interactive, not in distress Neck : Normal inspection, Supple Face: right sided swelling with no significant tenderness, no erythema or drianage noted Cardiovascular : RRR, no JVP, no lower extremity edema Respiratory : good bilateral air entry, no crackles, wheezes or rhonchi Gastrointestinal: soft, lax, Normal bowel sounds, Non tender Skin : Warm, Dry Neurological : Alert & oriented x3, No focal deficit Objective Data Active Medications Acetaminophen (Acetaminophen 325 Mg Tablet) 650 mg PO Q6H PRN PRN Reason: Pain, Mild (Pain Scale 1-3) Last Admin: 08/04/22 08:31 Dose: 650 mg Documented By: MARIELOS Albuterol Sulfate (Albuterol Sulfate 90 Mcg 8 Gm Inhaler) 2 puff INHALE Q4H PRN PRN Reason: Shortness Of Breath Or Wheezing Amlodipine Besylate (Amlodipine Besylate 5 Mg Tablet) 5 mg PO DAILY [facility]; Protocol Last Admin: 08/04/22 08:31 Dose: 5 mg Documented By: MARIELOS Atenolol (Atenolol 100 Mg Tablet) 100 mg PO DAILY [facility]; Protocol Last Admin: 08/04/22 08:31 Dose: 100 mg Documented By: MARIELOS Buprenorphine/Naloxone (Buprenorphine/Naloxone 2/0.5mg Film) 1 film SUBLINGUAL DAILY [facility] Last Admin: 08/04/22 08:31 Dose: 1 film Documented By: MARIELOS Bupropion HCl (Bupropion Hcl Xl 150 Mg Tab.Er.24h) 150 mg PO DAILY [facility] Last Admin: 08/04/22 08:32 Dose: 150 mg Documented By: MARIELOS Clonazepam (Clonazepam 1 Mg Tablet) 1 mg PO BEDTIME PRN PRN Reason: Anxiety Clonidine HCl (Clonidine Hcl 0.2 Mg Tablet) 0.2 mg PO BID [facility]; Protocol Last Admin: 08/04/22 08:31 Dose: 0.2 mg Documented By: MARIELOS Enoxaparin Sodium (Enoxaparin Sodium 40 Mg/0.4 Ml Syringe) 40 mg SUBCUT Q24H [facility] Last Admin: 08/03/22 17:36 Dose: 40 mg Documented By: ALYCIA Clindamycin Phosphate (Cleocin) 600 mg in 50 mls @ 100 mls/hr IV Q8H [facility] Last Infusion: 08/04/22 11:29 Dose: 0 mls/hr Documented By: MARIELOS Sodium Chloride (Ns) 1,000 mls @ 125 mls/hr IVCONT .Q8H [facility] Last Admin: 08/04/22 10:56 Dose: 125 mls/hr Documented By: MARIELOS Ketorolac Tromethamine (Ketorolac Tromethamine 15 Mg/Ml Vial) 15 mg IVPUSH Q6H PRN PRN Reason: Pain, Moderate (Pain Scale 4-6 Last Admin: 08/02/22 21:45 Dose: 15 mg Documented By: VAL Montelukast Sodium (Montelukast Sodium 10 Mg Tablet) 10 mg PO BEDTIME [facility] Last Admin: 08/03/22 20:40 Dose: 10 mg Documented By: ALYCIA Ondansetron HCl (Ondansetron Hcl 4 Mg/2 Ml Vial) 4 mg IVPUSH Q8H PRN PRN Reason: Nausea and Vomiting Quetiapine Fumarate (Quetiapine Fumarate 100 Mg Tablet) 100 mg PO BEDTIME [facility] Last Admin: 08/03/22 20:40 Dose: 100 mg Documented By: ALYCIA Sodium Chloride (0.9 % Sodium Chloride Flush 3 Ml Syringe) 3 ml IVFLUSH QSHIFT [facility] Last Admin: 08/04/22 08:32 Dose: Not Given Documented By: MARIELOS Non-Admin Reason: IV Running Tamsulosin HCl (Tamsulosin Hcl 0.4 Mg Capsule) 0.4 mg PO DAILY [facility] Last Admin: 08/04/22 08:32 Dose: 0.4 mg Documented By: MARIELOS Labs 08/03/22 06:08 08/04/22 06:29 Labs: Laboratory Results - last 24 hr 08/04/22 08/04/22 06:29 06:29 Anion Gap 11 L Estim Creat Clear Calc 64.6 Estimated GFR 50 Random Glucose 89 Calcium 8.1 L Total Creatine Kinase 3075 H Assessment and Plan (1) Opiate withdrawal: Status: Acute (2) BRIAN (acute kidney injury): Status: Acute (3) Abscess, dental: Status: Acute (4) Rhabdomyolysis: Status: Acute (5) BRIAN (acute kidney injury): Status: Acute (6) Accidental overdose: Status: Acute Plan 56-year-old male presents with altered mental status that somewhat improved with the administration of Narcan. Per his recount this is related to an extra Suboxone he took this afternoon. Also noted to have a dental abscess draining purulent material. vomiting with blood one episode, unclear if was real blood or not reported by nursing staff hold Lovenox monitor any further episodes Zofran for nausea Accidental overdose reports taking extra suboxone discussed with ; suspects ongoing opiate abuse will monitor on telemetry and follow O2 saturation addiction team eval appreciated BRIAN 2/2 Rhabdomyolysis Hx ongoing CKD2 improved to 1.5 CPK of 3000 IVF follow BMP Transaminitis 2/2 CPK leakage improved LFT Right sided facial swelling likely 2/2 Dental abscess reported drainage into oral cavity US showing no clear abscess formation cover with clindamycin Full code Lovenox Will require overnight hospital stay to assess extent of opiate use and monitor for withdrawal as well as volume repletion to treat acute kidney injury/rhabdo Time Spent With Patient Time: Total time managing care of this patient today ____ minutes. Quality Stroke Does the patient have a stroke diagnosis?: No VTE Prior VTE?: No VTE Risk Level:: Medical - moderate - high VTE Device Contraindication: Treatment Not Indicated VTE Drug Contraindication: N/A - Med Ordered
[2022-08-04] MEDS: ondansetron HCL 4 MG/2 ML VIAL IVPUSH (17:59)
[2022-08-04] MEDS: QUEtiapine Fumarate 100 MG TABLET PO (21:31)
[2022-08-04] MEDS: clonazePAM 1 MG TABLET PO (21:31)
[2022-08-04] MEDS: Montelukast Sodium 10 MG TABLET PO (21:31)
[2022-08-05] MEDS: Clindamycin Phosphate/D5W 600 MG/50 ML PIGGYBACK 100 MG IV ×2 (02:35→10:36)
[2022-08-05 03:57] VITALS: BP 166/84; PULSE 72; RESP 20; TEMP 36.6; O2SAT 99
[2022-08-05 07:30] VITALS: BP 149/81; PULSE 72; RESP 20; TEMP 36.9; O2SAT 99
[2022-08-05] MEDS: ondansetron HCL 4 MG/2 ML VIAL IVPUSH (08:33)
[2022-08-05] MEDS: buPROPion HCl XL 150 MG TAB.ER.24H PO (08:33)
[2022-08-05] MEDS: amLODIPine Besylate 5 MG TABLET PO (08:33)
[2022-08-05] MEDS: Tamsulosin HCL 0.4 MG CAPSULE PO (08:33)
[2022-08-05] MEDS: cloNIDine HCL 0.2 MG TABLET PO (08:33)
[2022-08-05] MEDS: atenoloL 100 MG TABLET PO (08:33)
[2022-08-05] MEDS: 0.9 % Sodium Chloride Flush 3 ML SYRINGE IVFLUSH (08:34)
[2022-08-05] MEDS: Buprenorphine/Naloxone 2/0.5mg FILM 1 FILM SUBLINGUAL (08:39)
--- NOTE | 2022-08-05 08:48 | P.CDIM_ITS ---
PROVIDER RESPONSE TEXT: To clarify, the appropriate diagnosis supported by the clinical indicators: Acute or subacute confusional state due to : toxic encephalopathy QUERY TEXT: PHYSICIAN'S DOCUMENTATION REQUEST Date of Query: 08/04/2022 10:12 AM EDT Patient Name: Brett Arambula Admit Date: 07/31/2022 Dear Polo Sue, A review of the medical record indicates additional documentation may be needed. Please review below and update the documentation accordingly. Clinical Indicators: Ed: patient arrived via EMS with altered mental status, lethargic. Took extra dose of his suboxone. Became less responsive, Opiates + Benzodiazepines + Cocaine + Fentanyl + Event note: when asked questions will not respond. Based on the above, could you clarify if any of the following, is the most likely etiology of the con fusion/altered mental status? Encephalopathy, poa resolved Indicate type such as metabolic, toxic, etc. Acute or subacute confusional state due to Specify known or suspected etiology Other Other (explain) Clinically unable to determine (explain) Thank you, Renetta Cartwright, CCS, CDIS Use of terms such as suspected, likely, concern for, or probable (associated with a specific diagnosi s that is being evaluated, monitored, or treated as if it exists) are acceptable and can be coded in the inpatient se tting, when documented at the time of discharge. Please use your independent medical judgment in providing your response. THIS QUERY IS PART OF THE PERMANENT MEDICAL RECORD
--- NOTE | 2022-08-05 09:43 | PM.DS ---
DS: Providers Provider Date of Service: 08/05/22 Date of admission: 07/31/22 18:06 Primary care physician: Unknown Physician Consults: 08/01/22 12:28 Addiction Medicine Routine Consulting Provider: Addiction Covering Reason for consultation: eval and rec DS: Diagnosis Discharge Diagnosis (1) Opiate withdrawal: Status: Acute (2) BRIAN (acute kidney injury): Status: Acute (3) Abscess, dental: Status: Acute (4) Rhabdomyolysis: Status: Acute (5) Accidental overdose: Status: Acute DS: Summary Hospital Course Hospital Course: Admission note HPI 56-year-old male presents [facility] for altered mental status.? Patient states that extra Suboxone and this is the cause of his presentation; he was subsequently given Narcan with improvement of his overall mental status.? When queried he is quiet when asked about ongoing opiate use.? Attempted to assess degree of usage without success.? Also of note, he has a dental abscess which is draining yellow pus.? He will not respond when asked how long this has been present and to what extent.? He is also found to have acute kidney injury likely from poor p.o. intake. Hospital course Reported Accidental overdose with altered mental status. reports taking extra suboxone. given Narcan with good response.monitored on telemetry and followed by recovery team who recommended outpatient follow up. Found to have BRIAN 2/2 Rhabdomyolysis with Cr of 2.2 at time of pressentation improved to his baseline of 1.5 at time of discharge as he was treated with aggressive hydration. CPK trended down from 9000 to below 3000. Transaminitis noted 2/2 CPK leakage. improved LFT during hospital stay. has chronic Hepatitis B infection based on Positive Hep B core antibody and negative IgM Ab. Has Right sided facial swelling likely 2/2 Dental abscess. reported drainage into oral cavity. US showing no clear abscess formation. cover with clindamycin to finish 1 week treatment. to follow with dentist as OP. reported on episode of vomiting with concern of blood streaks. one episode, unclear if was real blood or not. reported by nursing staff but patient denies. held Lovenox. No further episodes reported. To discharge on Zofran for nausea. Avoid drug use drink plenty of fluids Zofran for nausea Clindamycin for 4 more days To follow with Dentist as outpatient Time Spent with Patient Time attestation: Total time managing care of this patient today ____ minutes. Discharge coordination time: Greater than 30 minutes Quality: Safe Use of Opioids Does Pt have an Active Cancer Diagnosis on the Problem List?: No Quality: Stroke Does the patient have a stroke diagnosis?: No Physical Exam Vital Signs: Vital Signs: Last Vital Signs Temp 98.5 F 08/05/22 07:30 Pulse 72 08/05/22 07:30 Resp 20 08/05/22 07:30 BP 149/81 H 08/05/22 07:30 Pulse Ox 99 08/05/22 07:30 O2 Del Method Room Air 08/05/22 07:30 BMI result Body Mass Index 28.7 Const: Other: Constitutional : Awake, interactive, not in distress Neck : Normal inspection, Supple Face: decreasing right sided swelling with no significant tenderness, no erythema or drianage noted Cardiovascular : RRR, no JVP, no lower extremity edema Respiratory : good bilateral air entry, no crackles, wheezes or rhonchi Gastrointestinal: soft, lax, Normal bowel sounds, Non tender Skin : Warm, Dry Neurological : Alert & oriented x3, No focal deficit DS: Data Imaging Chest x-ray: Radiologist's impression: ITS Impressions Chest X-Ray 07/31/22 16:19 IMPRESSION: Unremarkable examination. Head CT 07/31/22 16:26 IMPRESSION: Limited exam from motion. No acute midline shift, mass effect or hemorrhage. Cannot rule out a small focus of decreased attenuation at the cervical pontine junction but this could be artifactual. Abdomen/Pelvis CT 07/31/22 16:27 IMPRESSION: 1. No acute abnormalities identified. 2. Status post right nephrectomy. 3. Vague medullary pyramidal calcifications within the left kidney which may represent a combination of mild medullary calcinosis and visualization of concentrated solute within the medullary tubules. Similar findings were present on the exam of 12/04/2020. No obstructing left-sided urolithiasis. 4. [id number] diffuse scattered calcific atherosclerotic plaques. 5. Status post L3-L5 anterior and posterior instrumented fusion. 6. Partially visualized mild-moderate posterior broad-based disc bulge at L5-S1. Head/Neck Ultrasound 08/01/22 10:07 IMPRESSION: Possible mild cellulitis in the region of the patient's complaint. No abscess formation. Discharge Plan Discharge Anticipated Discharge Date/Time: 08/05/22 08:58 Patient Disposition: Home, Self-Care Discharge Diagnosis: Accidental overdose Dental abscess Acute kidney injury Referrals: Physician,Unknown J [Primary Care Provider] - 1 Week Discharge Medications: New clindamycin HCl 300 mg capsule 300 mg PO TID Qty: 12 0RF ondansetron 4 mg tablet,disintegrating 4 mg PO Q8H PRN (Reason: nausea and vomiting) Qty: 14 0RF Continued tamsulosin 0.4 mg capsule 0.4 mg PO DAILY 90 Days Qty: 90 3RF clonazepam 1 mg tablet 1 mg PO BEDTIME PRN (Reason: Anxiety) buprenorphine-naloxone 2-0.5 mg film 1 film sublingual DAILY bupropion HCl 150 mg tablet extended release 24 hr 150 mg PO QAM clonidine HCl 0.2 mg tablet 0.2 mg PO BID montelukast 10 mg tablet 10 mg PO QPM amlodipine 5 mg tablet 5 mg PO DAILY atenolol 100 mg tablet 100 mg PO DAILY lisinopril 20 mg tablet 20 mg PO DAILY chlorthalidone 25 mg tablet 25 mg PO DAILY quetiapine 100 mg tablet 100 mg PO BEDTIME albuterol sulfate 90 mcg/actuation HFA aerosol inhaler 2 puff inhalation Q4-6H PRN (Reason: Shortness Of Breath Or Wheezing) Held ibuprofen 800 mg tablet 800 mg PO TID Hold Instructions: Resume on 08/09/22. Discharge Orders: Discharge Order (Routine); Ordered 08/05/22 Ordered By: Polo Sue Diet: Advance to usual diet Activity on Discharge: As tolerated Stand Alone Forms: Patient Portal Discharge page Care Plan Goals: Read below Health Concerns: Read below Plan of Treatment: Read below Assessment: You were admitted to the hospital for accidental overdose with acute kidney injury from muscle injury. found to have dental abscess as well. treated with IV fluids, antibiotics with good response over the course of hospital stay. Avoid drug use drink plenty of fluids Zofran for nausea Clindamycin for 4 more days To follow with Dentist as outpatient
--- NOTE | 2022-08-05 09:45 | MHC.CM.PN ---
Patient has been medically cleared for dc to home today, self care. CM met with Patient at bedside and addressed IMM with him, providing Patient with the original and placing a copy on the chart. Patient is pleased to be going home today and his will provide transportation to home.
[2022-08-05 10:53] VITALS: BP 150/80; PULSE 72; RESP 20; TEMP 37.1; O2SAT 97
== END 2022-08-05 15:28 | disposition home or self-care (01) | DRG 917 ==
LOC: HO.ED 16:23 → HO.EDOVER 18:27 → HO.IMC 19:31
PROVIDERS: Physician Assistant Medical; Admitting Provider Hospitalist; Emergency Provider Emergency Medicine; Visit Provider Student in an Organized Health Care Education/Training Program
DX: T40.491A Poisoning by other synthetic narcotics, accidental (unintentional), initial encounter (principal); G92.8 Other toxic encephalopathy; F11.23 Opioid dependence with withdrawal; N17.9 Acute kidney failure, unspecified; M62.82 Rhabdomyolysis; B18.1 Chronic viral hepatitis B without delta-agent; I12.9 Hypertensive chronic kidney disease with stage 1 through stage 4 chronic kidney disease, or unspecified chronic kidney disease; K04.7 Periapical abscess without sinus; N18.2 Chronic kidney disease, stage 2 (mild); Z20.822 Contact with and (suspected) exposure to COVID-19; Z87.891 Personal history of nicotine dependence; Z79.899 Other long term (current) drug therapy
CPT/HCPCS: 36415; 70450; 71045; 74176; 76536; 80048; 80053; 80076; 80143; 80179; 80307; 81001; 82550; 82803; 83735; 85025; 87635; 99285; J0696; J1650; J1885; J2405

== ENCOUNTER 2022-08-06 12:08 | Emergency (ER) | payer MEDICARE, MEDICAID, SELFPAY ==
--- NOTE | ~2022-08-06 | CT_ITS ---
EXAMINATION: CT HEAD WITHOUT CONTRAST CLINICAL INFORMATION: Confusion. Memory deficits. Overdose one week prior. COMPARISON: 07/31/2022 TECHNIQUE: Contiguous axial imaging was performed from the skull base to vertex without intravenous contrast. This CT examination was performed using dose optimization techniques as appropriate, variously including the following: * Automated exposure control * Adjustment of mA and/or kV according to patient size (this includes techniques or standardized protocols for targeted exams where dose is matched to indication/reason for exam; i.e. extremities or head) Use of iterative reconstruction technique DLP: 838 mGy-cm. FINDINGS: There is no evidence of acute intracranial hemorrhage or territorial infarction. No abnormal mass effect or midline shift is seen. Rubin to white matter differentiation is well preserved. No extra-axial fluid collections are identified. No hydrocephalus. No significant volume loss. There is no abnormal attenuation within the brain parenchyma. The osseous structures and soft tissues are normal. The mastoid air cells are well aerated. Moderate opacification throughout the visualized paranasal sinuses. CT/CT head/brain wo IV con IMPRESSION: No acute intracranial pathology. Moderate paranasal sinus opacification.
--- NOTE | ~2022-08-06 | XR_ITS ---
EXAMINATION: XR CHEST CLINICAL INFORMATION: Chest pain COMPARISON: 07/31/2022 TECHNIQUE: 2 views of the chest were obtained. FINDINGS: Cardiac leads overlie the chest. The lungs are well expanded. There is no focal consolidation, edema, or effusion. No pneumothorax. The cardiomediastinal silhouette is within normal limits. No acute osseous abnormality. XR/XR chest 2V IMPRESSION: Clear lungs.
[2022-08-06 12:22] VITALS: BP 155/92; PULSE 67; RESP 14; TEMP 36.8; O2SAT 97; BMI 28.1
--- NOTE | 2022-08-06 12:34 | PC.NURSE ---
Alert and oriented, resp even and unlabored. Denies any pain at this time states he is unsure why the clinic called EMS transport. Only stating he feels a bit forgetful but has no other pain. NSR on monitor.
[2022-08-06 12:38] LABS: MANUAL DIFF FLAG NO
[2022-08-06 12:39] LABS: Basophils Percent Auto 0.2 % (0-2); Eosinophils Percent Auto 0.2 % (0-4); Hemoglobin 12.4 g/dl (14.0-18.0); Imm Gran Abs Auto 0.06 X10*3/uL (0.00-0.03); Imm Gran Pct Auto 0.6 % (0.0-0.4); Lymphocytes Absolute Auto 1.7 X10*3/uL (1.2-4.9); Lymphocytes Percent Auto 17.1 % (20-40); Mean Corpuscular HGB Conc 35.4 g/dl (31.0-36.0); Mean Corpuscular Hemoglobin 30.2 pg (27.0-33.0); Mean Corpuscular Volume 85.2 fL (80.0-98.0); Mean Platelet Volume 9.6 fL (9.4-12.4); Monocytes Absolute Auto 0.8 X10*3/uL (0.1-1.2); Monocytes Percent Auto 7.9 % (2-11); Neutrophils Absolute Auto 7.4 x10*3/uL (2.0-8.3); Platelet Count 158 X10*3/uL (160-400); Red Blood Count 4.11 X10*6/uL (4.60-5.80); Red Cell Distribution Width 12.4 % (11.0-16.0)
[2022-08-06 12:54] LABS: Alanine Aminotransferase 115 U/L (0-40); Alkaline Phosphatase 43 U/L (39-117); Anion Gap 11 (12-20); Aspartate Amino Transferase 106 U/L (5-37); Bilirubin Total 1.1 mg/dL (0.0-1.0); Blood Urea Nitrogen 17 mg/dL (9-16); Calcium 8.9 mg/dL (8.4-10.2); Carbon Dioxide 27 mmol/L (22-29); Chloride 103 mmol/L (96-108); Creatinine Clr Calc Pharmacy 58.2; Estimated Glomerular Filt Rate 48; Glucose Random 105 mg/dL (60-115); Potassium 4.6 mmol/L (3.3-5.1); Sodium 136 mmol/L (135-145); Total Protein 6.8 g/dL (6.5-8.0)
--- NOTE | 2022-08-06 12:54 | ECG_ITS ---
Test Reason : CHEST PAIN Blood Pressure : / mmHG Vent. Rate : 065 BPM Atrial Rate : 065 BPM P-R Int : 170 ms QRS Dur : 090 ms QT Int : 414 ms P-R-T Axes : 044 021 056 degrees QTc Int : 430 ms Normal sinus rhythm Nonspecific T wave abnormality Abnormal ECG When compared to the previous EKG of 12 jan 2020, non specific T changes seen in anterior leads Referred By: Generic ED Physician Electronically Signed By:ALEXANDRE CASTANO
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
[2022-08-06 16:18] LABS: Troponin-I High Sensitivity 8.4 ng/L (<3.5-35.0)
[2022-08-06 16:26] VITALS: BP 145/82; PULSE 71; RESP 15; TEMP 36.9; O2SAT 99
== END 2022-08-06 18:29 | disposition home or self-care (01) ==
PROVIDERS: Emergency Provider Emergency Medicine Emergency Medical Services; PCP Internal Medicine
DX: R07.89 Other chest pain (principal); R41.3 Other amnesia; R51.9 Headache, unspecified; Z87.891 Personal history of nicotine dependence; Z79.899 Other long term (current) drug therapy
CPT/HCPCS: 36415; 70450; 71046; 80053; 82550; 84484; 85025; 93005; 99284; 99285

== ENCOUNTER 2022-09-09 12:47 | Outpatient (REF) | payer MEDICARE, MEDICAID, SELFPAY ==
--- NOTE | ~2022-09-09 | MR_ITS ---
EXAMINATION: MR BRAIN WITHOUT CONTRAST CLINICAL INFORMATION: Ongoing memory loss, likely anoxic event following drug overdose COMPARISON: CT head without contrast 08/06/2022 TECHNIQUE: Multiplanar multisequence MR imaging of the brain was obtained without intravenous contrast. FINDINGS: There is no acute infarct on diffusion-weighted imaging. There is no intracranial hemorrhage on iron-sensitive imaging. No extra-axial collection or mass effect/herniation. Scattered periventricular and deep white matter T2 FLAIR hyperintensities consistent with mild underlying microangiopathy. No hydrocephalus. The ventricles are normal in morphology and size. The major flow voids at the skull base are preserved. The midline structures are normal. The cerebellar tonsils are normally positioned. The craniocervical junction is normal. Marrow signal is within normal limits. The visualized soft tissues are without significant abnormality. Moderate to severe ethmoid sinus opacification. Mild maxillary sinus mucosal thickening. Small right mastoid fluid. MR/MR head/brain wo con IMPRESSION: 1. No acute intracranial abnormality. 2. Mild chronic microangiopathy.
== END 2022-09-09 12:48 | disposition home or self-care (01) ==
LOC: HO.MRI 12:47
PROVIDERS: PCP Internal Medicine; Visit Provider Student in an Organized Health Care Education/Training Program
DX: R41.3 Other amnesia (principal)
CPT/HCPCS: 70551

== ENCOUNTER 2022-10-07 11:50 | Outpatient (REF) | payer MEDICARE, MEDICAID, SELFPAY ==
[2022-10-07 12:17] LABS: MANUAL DIFF FLAG NO
[2022-10-07 12:53] LABS: Basophils Percent Auto 0.7 % (0-2); Eosinophils Absolute Auto 0.1 X10*3/uL (0.0-0.4); Eosinophils Percent Auto 2.9 % (0-4); Hemoglobin 15.2 g/dl (14.0-18.0); Imm Gran Abs Auto 0.01 X10*3/uL (0.00-0.03); Imm Gran Pct Auto 0.2 % (0.0-0.4); Lymphocytes Absolute Auto 1.6 X10*3/uL (1.2-4.9); Lymphocytes Percent Auto 34.7 % (20-40); Mean Corpuscular HGB Conc 35.3 g/dl (31.0-36.0); Mean Corpuscular Hemoglobin 30.6 pg (27.0-33.0); Mean Corpuscular Volume 86.5 fL (80.0-98.0); Mean Platelet Volume 10.6 fL (9.4-12.4); Monocytes Absolute Auto 0.3 X10*3/uL (0.1-1.2); Monocytes Percent Auto 5.9 % (2-11); Neutrophils Absolute Auto 2.5 x10*3/uL (2.0-8.3); Neutrophils Percent Auto 55.6 % (45-73); Platelet Count 159 X10*3/uL (160-400); Red Blood Count 4.97 X10*6/uL (4.60-5.80); Red Cell Distribution Width 11.7 % (11.0-16.0); White Blood Count 4.6 X10*3/uL (4.8-10.8)
[2022-10-07 13:27] LABS: Alanine Aminotransferase 15 U/L (0-40); Albumin Level 4.3 g/dL (3.5-5.0); Alkaline Phosphatase 53 U/L (39-117); Anion Gap 11 (12-20); Aspartate Amino Transferase 16 U/L (5-37); Bilirubin Direct 0.2 mg/dL (0.0-0.5); Bilirubin Total 0.6 mg/dL (0.0-1.0); Blood Urea Nitrogen 18 mg/dL (9-16); Calcium 9.2 mg/dL (8.4-10.2); Carbon Dioxide 25 mmol/L (22-29); Chloride 105 mmol/L (96-108); Estimated Glomerular Filt Rate > 60; Glucose Random 109 mg/dL (60-115); Sodium 137 mmol/L (135-145); Total Protein 7.9 g/dL (6.5-8.0)
[2022-10-07 14:00] LABS: Folate 13.4 ng/mL (> or = 4.0); Vitamin B12 660 pg/mL (200-900)
[2022-10-08 05:06] LABS: Syphilis Screen Nonreactive (Nonreactive)
[2022-10-08 05:20] LABS: HIV AB/AG Nonreactive (Nonreactive); HIV Num 1 0.06 S/CO (0.00-0.99)
[2022-10-18 23:43] LABS: 18 KD (IgG) Band NON-REACTIVE; 23 KD (IgG) Band NON-REACTIVE; 23 KD (IgM) Band NON-REACTIVE; 28 KD (IgG) Band NON-REACTIVE; 30 KD (IgG) Band NON-REACTIVE; 39 KD (IgM) Band NON-REACTIVE; 39KD (IgG) Band NON-REACTIVE; 41 KD (IgM) Band NON-REACTIVE; 41KD (IgG) Band REACTIVE; 45 KD (IgG) Band NON-REACTIVE; 58 KD (IgG) Band NON-REACTIVE; 66 KD (IgG) Band NON-REACTIVE; 93 KD (IgG) Band NON-REACTIVE; Lyme IgG Blot Interp NEGATIVE (NEGATIVE); Lyme IgM Blot Interp NEGATIVE (NEGATIVE)
== END 2022-10-07 11:51 | disposition home or self-care (01) ==
LOC: HO.LAB 11:50
PROVIDERS: Visit Provider Psychiatry & Neurology Neurology
DX: Z11.4 Encounter for screening for human immunodeficiency virus [HIV] (principal); G31.84 Mild cognitive impairment of uncertain or unknown etiology
CPT/HCPCS: 36415; 80048; 80076; 82607; 82746; 85025; 86617; 86780; 87389

== ENCOUNTER 2022-11-11 09:50 | Outpatient (REF) | payer MEDICARE, MEDICAID, SELFPAY ==
--- NOTE | ~2022-11-11 | XR_ITS ---
EXAMINATION: XR SHOULDER, LEFT CLINICAL INFORMATION: Pain COMPARISON: 04/20/2019 TECHNIQUE: Three views of the left shoulder. FINDINGS: Advanced degenerative changes in the acromioclavicular joint with narrowing and hypertrophic change. Advanced degenerative changes in the glenohumeral joint with hypertrophic change. Prominent osteophyte along the undersurface of the acromion. XR/XR shoulder LT min 2V IMPRESSION: Advanced degenerative changes left shoulder.
== END 2022-11-11 09:51 | disposition home or self-care (01) ==
LOC: HO.HOSX 09:50
PROVIDERS: Visit Provider Orthopaedic Surgery
DX: M75.42 Impingement syndrome of left shoulder (principal); M19.019 Primary osteoarthritis, unspecified shoulder
CPT/HCPCS: 20610; 73030; 99202; J1100

== ENCOUNTER 2022-11-11 10:51 | Outpatient (AMB) | payer MEDICARE, MEDICAID, SELFPAY ==
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
[2022-11-11 11:02] VITALS: BMI 28.1
== END 2022-11-11 11:19 | disposition home or self-care (01) ==
PROVIDERS: PCP Internal Medicine; Visit Provider Orthopaedic Surgery
DX: M75.42 Impingement syndrome of left shoulder (principal); M19.012 Primary osteoarthritis, left shoulder
CPT/HCPCS: 20610; 99204

== ENCOUNTER 2023-03-28 13:19 | Outpatient (REF) | payer MEDICARE, MEDICAID, SELFPAY | END 2023-03-28 13:20 | disposition home or self-care (01) | LOC: HO.HHCLNP 13:19 | PROVIDERS: Visit Provider Emergency Medicine | DX: R30.0 Dysuria (principal) | CPT/HCPCS: 87086 ==

== ENCOUNTER 2023-09-23 09:45 | Outpatient (AMB) | payer MEDICARE, MEDICAID, SELFPAY ==
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
== END 2023-09-23 10:32 | disposition home or self-care (01) ==
PROVIDERS: PCP Internal Medicine; Visit Provider Urology
DX: C64.9 Malignant neoplasm of unspecified kidney, except renal pelvis (principal); N20.0 Calculus of kidney; N52.9 Male erectile dysfunction, unspecified
CPT/HCPCS: 99213

== ENCOUNTER 2023-09-23 10:46 | Outpatient (REF) | payer MEDICARE, MEDICAID, SELFPAY ==
[2023-09-23 13:46] LABS: Calcium 9.2 mg/dL (8.4-10.2)
[2023-09-23 14:00] LABS: Parathyroid Hormone Intact 117.1 pg/mL (8.7-77.1)
[2023-09-29 14:58] LABS: Testosterone, Free 57.9 pg/mL (35.0-155.0); Testosterone, Total 405 ng/dL (250-1100)
== END 2023-09-23 10:47 | disposition home or self-care (01) ==
LOC: HO.10HDL 10:46
PROVIDERS: Visit Provider Urology
DX: N20.0 Calculus of kidney (principal); R68.82 Decreased libido; N52.9 Male erectile dysfunction, unspecified; C64.9 Malignant neoplasm of unspecified kidney, except renal pelvis
CPT/HCPCS: 36415; 82310; 83970; 84402; 84403; 99212

== ENCOUNTER 2024-01-13 09:05 | Outpatient (REF) | payer MEDICARE, MEDICAID, SELFPAY ==
[2024-01-13 12:22] LABS: Alanine Aminotransferase 34 U/L (0-40); Albumin Level 3.9 g/dL (3.5-5.0); Alkaline Phosphatase 41 U/L (39-117); Anion Gap 11 (12-20); Aspartate Amino Transferase 25 U/L (5-37); Bilirubin Direct 0.2 mg/dL (0.0-0.5); Bilirubin Total 0.4 mg/dL (0.0-1.0); Blood Urea Nitrogen 19 mg/dL (9-16); Calcium 9.2 mg/dL (8.4-10.2); Carbon Dioxide 24 mmol/L (22-29); Chloride 109 mmol/L (96-108); Cholesterol 200 mg/dL (<200); Estimated Glomerular Filt Rate 57; Glucose Random 96 mg/dL (60-115); HDL Cholesterol 34 mg/dL (>40); LDL Cholesterol Calculated 138 mg/dL (<100); Sodium 140 mmol/L (135-145); Total Protein 7.4 g/dL (6.5-8.0); Triglycerides 141 mg/dL (<150)
[2024-01-13 13:01] LABS: Reflex LDLD? No
[2024-01-14 04:47] LABS: HIV AB/AG Nonreactive (Nonreactive); HIV Num 1 0.04 S/CO (0.00-0.99); ~HepC Num1 10.46 S/CO (0.00-0.79); ~Hepatitis C Antibody Reactive (Nonreactive)
[2024-01-17 15:28] LABS: HCV Log PCR <1.18 NOT DETECTED Log IU/mL (NOT DETECTED); HepC Viral Load <15 NOT DETECTED IU/mL (NOT DETECTED)
== END 2024-01-13 09:06 | disposition home or self-care (01) ==
LOC: HO.HHCL 09:05
PROVIDERS: PCP Internal Medicine; Visit Provider Emergency Medicine
DX: Z00.00 Encounter for general adult medical examination without abnormal findings (principal); I10 Essential (primary) hypertension; F11.11 Opioid abuse, in remission; Z12.5 Encounter for screening for malignant neoplasm of prostate
CPT/HCPCS: 36415; 80053; 80061; 82248; 84153; 86803; 87389; 87522

== ENCOUNTER 2024-02-27 09:28 | Outpatient (REF) | payer MEDICARE, MEDICAID, SELFPAY ==
[2024-02-27 11:02] LABS: Appearance Urine Clear; Color Urine Yellow; Glucose Urine UA Negative (Negative); Leukocyte Esterase Urine Negative (Negative); Nitrite Urine Negative (Negative); PH 6.5 (5.0-9.0); Specific Gravity - Urine 1.015 (1.005-1.025); Urine Blood Negative (Negative); Urine Ketones Negative (Negative); Urine Protein Negative (Neg-Trace)
[2024-02-27 11:40] LABS: Anion Gap 13 (12-20); Blood Urea Nitrogen 18 mg/dL (9-16); Calcium 9.3 mg/dL (8.4-10.2); Carbon Dioxide 26 mmol/L (22-29); Chloride 103 mmol/L (96-108); Estimated Glomerular Filt Rate > 60; Potassium 3.7 mmol/L (3.3-5.1); Sodium 138 mmol/L (135-145)
[2024-02-27 11:59] LABS: Creatinine Urine 103.46 mg/dL; Microalbum/Creatinine Ratio Ur 6.7 ug/mg cr (<30); Total Protein Urine Random < 7 mg/dL (<12)
== END 2024-02-27 09:29 | disposition home or self-care (01) ==
LOC: HO.LAB 09:28
PROVIDERS: PCP Internal Medicine; Visit Provider Internal Medicine Nephrology
DX: N18.31 Chronic kidney disease, stage 3a (principal); I10 Essential (primary) hypertension
CPT/HCPCS: 36415; 80051; 81003; 82043; 82310; 82565; 82570; 84156; 84520

== ENCOUNTER 2024-04-13 11:21 | Outpatient (AMB) | payer MEDICARE, MEDICAID, SELFPAY ==
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
[2024-04-13 11:33] VITALS: BP 146/73; PULSE 68; BMI 32.5
== END 2024-04-13 12:24 | disposition home or self-care (01) ==
PROVIDERS: PCP Internal Medicine; Visit Provider Internal Medicine Gastroenterology
DX: R19.5 Other fecal abnormalities (principal)
CPT/HCPCS: 99204

== ENCOUNTER → 2024-04-13 11:21 | Outpatient (BNVA) | payer MEDICARE, MEDICAID, SELFPAY | PROVIDERS: PCP Internal Medicine; Visit Provider Internal Medicine Gastroenterology | DX: R19.5 Other fecal abnormalities (principal) | CPT/HCPCS: 99202 ==

== ENCOUNTER → 2024-05-11 13:17 | Outpatient (BNVA) | payer MEDICARE, MEDICAID, SELFPAY | PROVIDERS: PCP Internal Medicine; Visit Provider Urology | DX: N40.1 Benign prostatic hyperplasia with lower urinary tract symptoms (principal); N13.8 Other obstructive and reflux uropathy; N52.9 Male erectile dysfunction, unspecified; C64.9 Malignant neoplasm of unspecified kidney, except renal pelvis; R68.82 Decreased libido | CPT/HCPCS: 51798; 81003; 99212 ==

== ENCOUNTER 2024-06-13 11:54 | Day surgery (SDC) | payer MEDICARE, MEDICAID, SELFPAY ==
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
[2024-06-13 12:14] VITALS: BP 134/89; PULSE 63; RESP 14; TEMP 36.5; O2SAT 99; BMI 32.2
[2024-06-13] MEDS: Lactated Ringers 1,000 ML 100 ML IVCONT (12:17)
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
--- NOTE | 2024-06-13 14:10 | HO.OPN-COLON ---
Colonoscopy Operative Note Operative Note Date of Service: 06/13/24 Narrative: Operative Information Procedure Description: Colonoscopy Indication: pos cologuard Anesthesia: MAC COLONOSCOPY Instrument: Olympus variable stiffness pediatric scope 190L Colonoscopy Monitoring: Vital signs and clinical assessment, continuous EKG monitoring, Pulse oximetry, Carbon Dioxide monitoring and blood pressure monitoring were done throughout the procedure. Colon withdrawal time was 9 minutes. Procedure: The patient was placed in the left lateral decubitis position and pre-procedure medications were administered. After a digital rectal examination of the ano-rectum, the video colonoscope was inserted into the rectum and advanced through the colon to the cecum/TI. The colonoscope was slowly withdrawn in a retrograde panoramic fashion and the colon mucosa was carefully examined including a retroflexed view of the rectum. Findings and interventions are described below. Procedure Difficulty: moderate due to incisional hernia Findings: Terminal Ileum-not intubated Cecum:normal Ascending Colon: normal Transverse Colon -normal Descending Colon:normal Sigmoid Colon: normal Rectum: Retroflexion with small internal hemorrhoids seen, grade I, several hyperplastic appearing polyps noted, some were 10 mm and removed with cold snare Anorectum - normal Intervention: cold snare Colon preparation: [place] Bowel Preparation Scale Right colon; 2 Transverse colon: 2 Left colon; 1-2 (0 = Unprepared colon segment with mucosa not seen due to solid stool that cannot be cleared. 1 = Portion of mucosa of the colon segment seen, but other areas of the colon segment not well seen due to staining, residual stool and/or opaque liquid. 2 = Minor amount of residual staining, small fragments of stool and/or opaque liquid, but mucosa of colon segment seen well. 3 = Entire mucosa of colon segment seen well with no residual staining, small fragments of stool or opaque liquid) Impression and Post Procedure Diagnosis: colon polyps internal hemorrhoids Plan: High fiber diet leaflet Avoid straining at stool, epsom salts and sitz bath, anusol supps or cream Repeat Colonoscopy in 1 year due to fair prep on the left or earlier if clinically indicated -NEXT time use colowrap Above findings were reviewed with the patient and relevant handouts were provided if indicated.
[2024-06-13 14:18] VITALS: BP 111/73; PULSE 65; RESP 16; TEMP 36.4; O2SAT 99
[2024-06-13 14:29] VITALS: BP 120/88; PULSE 62; RESP 18; O2SAT 96
== END 2024-06-13 15:16 | disposition home or self-care (01) ==
PROVIDERS: PCP Internal Medicine; Visit Provider Internal Medicine Gastroenterology
PROC: 0DJD8ZZ Inspection of Lower Intestinal Tract, Via Natural or Artificial Opening Endoscopic (ICD-10-PCS; CPT 45378; principal; 2024-06-13 13:40)
DX: R19.5 Other fecal abnormalities (principal); K62.1 Rectal polyp; K64.0 First degree hemorrhoids; K43.2 Incisional hernia without obstruction or gangrene; I10 Essential (primary) hypertension; J45.909 Unspecified asthma, uncomplicated; N28.89 Other specified disorders of kidney and ureter; N13.9 Obstructive and reflux uropathy, unspecified; F32.A Depression, unspecified; Z87.828 Personal history of other (healed) physical injury and trauma; Z79.1 Long term (current) use of non-steroidal anti-inflammatories (NSAID); Z79.891 Long term (current) use of opiate analgesic; Z79.899 Other long term (current) drug therapy; Z98.890 Other specified postprocedural states; Z87.891 Personal history of nicotine dependence
CPT/HCPCS: 45385; 88305; J2003; J2704

== ENCOUNTER → 2024-06-13 11:54 | Outpatient (BNV) | payer MEDICARE, MEDICAID, SELFPAY | PROVIDERS: PCP Internal Medicine; Visit Provider Internal Medicine Gastroenterology | DX: Z12.11 Encounter for screening for malignant neoplasm of colon (principal); R19.5 Other fecal abnormalities; K63.5 Polyp of colon; K64.0 First degree hemorrhoids | CPT/HCPCS: 45385 ==

== ENCOUNTER 2024-11-02 12:54 | Outpatient (REF) | payer MEDICARE, MEDICAID, SELFPAY ==
--- NOTE | ~2024-11-02 | US_ITS ---
CLINICAL HISTORY: C64.9 - Malignant neoplasm of unspecified kidney, except renal pelvis US Renal Comparison: US/SR - US KIDNEY BILATERAL - 04/30/22 15:35 EST Findings: Right kidney was previously removed. Left kidney measures 13.8 cm x 6 cm x 5.5 cm. 6 mm cyst in the midpole of the left kidney. No collecting system dilatation of left kidney. Normal color Doppler. IMPRESSION: 1. 6 mm left renal cyst. 2. Status post right nephrectomy. This document has been electronically signed by: Marilee Naidu MD on 11/02/2024 17:21:37
--- OUTSIDE RECORDS SUMMARY | 2024-11-02 12:56 | XMS_ITS | Encounter Summary ---
Author Organization [employer] Address [address] [place] [address] Care Team Providers Care English As A Second Language Instructor Name Role Phone Anirudh Astudillo MD Primary Care Provide r Ryan Enriquez PharmD Unavailable [phone] Reason for Visit * Reason Comments Med Refill Encounter Details Date Type Department Care Team (Late st Contact Info) Description 06/22/2024 Refill [facility] [address] [place] [address] Steve Capps MD [address] [place] [address] Uncomplicated opioid dependence (CMS/HCC) Social History Tobacco Use Types Packs/Day Years Used Date Smoking Tobacco: Some Days Cigarettes 0.3 1.5 Passive Smoke Exposure: Current Smokeless Tobacco: Former Comments:Smoking less than 1 cig/ daily down to even 1 weekly. Alcohol Use Standard Drinks/Week Comments Not Currently 0 (1 standard drink = 0.6 oz pur e alcohol) Depression Answer Date Recorded Patient Health Questionnaire-9 Score 0 05/31/2024 Patient Health Questionnaire-9 Score 0 05/31/2024 Last PHQ-9: Questionnaire Data Not on file 0 05/31/2024 Housing Stability Answer Date Recorded What is your housing situation today? I have kristal patel 01/31/[address] you li ve. Do you have problems with any of the following? None of the above 01/31/2023 Food Insecurity Answer Date Recorded Within the past 12 months, y ou worried that your food would run out before you got money to buy more: Never True 05/17/2024 Within the past 12 months,th e food you bought just didn't last and you didn't have enough money to get more: Never True Transportation Answer Date Recorded In the past 12 months, has l ack of transportation kept you from medical appts, meetings, work or from getting things needed for daily living? No 01/31/2023 Utilities Answer Date Recorded In the past 12 months, has t he electric, gas, oil or water company threatened to shut off services in your home? No 01/31/2023 Depression Answer Date Recorded Patient Health Questionnaire-2 Score 0 05/31/2024 Internet Access Answer Date Recorded Internet Access Q1 Yes 05/17/2024 Internet Access Q2 Not on file 05/17/2024 Sex and Gender Information Value Date Recorded Sex Assigned at Male 02/15/2022 10:14 AM EDT Legal Sex Male 10:14 AM EDT Gender Identity Male 02/15/2022 10:14 AM EDT Sexual Orientation Straight 02/15/2022 10 :14 AM EDT documented as of this encounter Plan of Treatment Upcoming Encounters Date Type Department Care Team (Late st Contact Info) Description 11/16/2024 9:00 AM EDT Clinical Support [facility] [address] [place] [address] Maya Larose RN documented as of this encounter Goals Goal Patient Goal Type Associated Problems Recent Progress Patient-Stated? Author Blood Pressure < 140/90 Blood Pressure Essential (primary) hypertension 140/89(2024 10:34 AM EDT) No Ryan Enriquez PharmD Note: Unable to assess today/ revisit at next visit documented as of this encounter Visit Diagnoses Diagnosis Uncomplicated opioid dependence (CMS/HCC) documented in this encounter Additional Health Concerns Assessment Noted Time PHQ-9 Depression Total Score: 0 05/31/19 25 10:24 AM EST documented as of this encounter Care Teams English As A Second Language Instructor Relationship Specialty Start Date End Date Anirudh Astudillo MD [address] [place] [address] PCP - General Internal Medicine 02/14/17 Ryan Enriquez PharmD [address] [place] [address] Pharmacist Internal Medicine 11/01/22 documented as of this encounter
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
--- OUTSIDE RECORDS SUMMARY | 2024-11-02 12:57 | XMS_ITS | Patient Health Record ---
Author Organization [facility] Address [address] [place] [address] Care Team Providers Care Extended Day Teacher Name Role Phone Kamlesh Butler [phone] Reason For Referral No Information Plan Of Treatment No Information
--- OUTSIDE RECORDS SUMMARY | 2024-11-02 12:57 | XMS_ITS | Clinical Summary ---
Author Organization [facility] Address [address] [place] [address] Phone Care Team Providers Care Credit Verification Clerk Name Role Phone Anirudh Peterson MD Primary Care Provi twila Allergies Active Allergy Reactions Criticality Noted Date Comments Pollen Extracts 02/29/2024 Medications amLODIPine (NORVASC) 10 mg tablet Take 1 tablet (10 mg total) by mouth 1 (one) time each day in the morning. 4 Active atenoloL (TENORMIN) 100 mg tablet Take 1 tablet (100 mg total) by mouth 1 (one) time each day in the morning. 4 Active buprenorphine-n aloxone (SUBOXONE) 2-0.5 mg film DISSOLVE 2 FILMS UNDER THE TONGUE EVERY DAY 4 Active chlorthalidone (HYGROTON) 25 mg tablet Take 1 tablet (25 mg total) by mouth 1 (one) time each day in the morning. 4 Active clonazePAM (KlonoPIN) 0.5 mg tablet Take 1 tablet (0.5 mg total) by mouth at bedtime as needed. at bedtime 4 Active hydrOXYzine pamoate (VISTARIL) 25 mg capsule Take 1 capsule (25 mg total) by mouth 3 (three) times a day if needed. for anxiety 4 Active lisinopriL (PRINIVIL,ZESTR IL) 20 mg tablet Take 1 tablet (20 mg total) by mouth 1 (one) time each day. 4 Active montelukast (SINGULAIR) 10 mg tablet Take 1 tablet (10 mg total) by mouth. 4 Active QUEtiapine (SEROquel) 400 mg tablet Take 0.5 tablets (200 mg total) by mouth at bedtime. 4 Active albuterol HFA (PROAIR HFA ; PROVENTIL HFA ; VENTOLIN HFA) 90 mcg/actuation inhaler Inhale 2 puffs by mouth every 6 (six) hours if needed for wheezing. Active buPROPion XL (WELLBUTRIN XL) 150 mg 24 hr tablet Take 1 tablet (150 mg total) by mouth 1 (one) time each day. Do not crush, chew, or split. Active cetirizine (ZyrTEC) 10 mg chewable tablet Chew 1 (one) time each day. Active tadalafiL (CIALIS) 20 mg tablet Take 1 tablet (20 mg total) by mouth 1 (one) time each day if needed for erectile dysfunction. Active polyethylene glycol (Golytely) 236-22.74-6.74 -5.86 gram solution Take 4L by mouth once for one dose. May substitue any PEG. Starting at 6PM the night before your procedure drink 1 8oz glasses at your own pace until you complete half of the gallon. Finish 2nd half of the gallon 5 hours before your procedure. 4000 mL 4 Active bisacodyL (DULCOLAX) 5 mg EC tablet Take 2 tablets by mouth right before beginning bowel prep. See instructions provided by the office 2 tablet 4 Active polyethylene glycol (Golytely) 236-22.74-6.74 -5.86 gram solution Take 4L by mouth once for one dose. May substitue any PEG. Starting at 6PM the night before your procedure drink 1 8oz glasses at your own pace until you complete half of the gallon. Finish 2nd half of the gallon 5 hours before your procedure. 4000 mL 5 Active bisacodyL (DULCOLAX) 5 mg EC tablet Take 2 tablets by mouth right before beginning bowel prep. See instructions provided by the office 2 tablet 5 Active Social History Tobacco Use Types Packs/Day Years Used Date Smoking Tobacco: Never Assessed Sex and Gender Information Value Date Recorded Sex Assigned at Not on file Legal Sex Male 12:27 PM EST Gender Identity Not on file Sexual Orientation Not on file Last Filed Vital Signs Vital Sign Reading Time Taken Comments Blood Pressure - - Pulse - - Temperature - - Respiratory Rate - - Oxygen Saturation - - Inhaled Oxygen Concentration - - Weight 93 kg (205 lb) 04/04/2024 10:00 AM EST Height 172.7 cm (5' 8 ) 04/04/2024 10:00 AM EST Body Mass Index 31.17 04/04/2024 10:00 AM EST Plan of Treatment Health Maintenance Due Date Last Done Comments DTaP,Tdap,and Td Vaccines (1 - Tdap) 12/26/1986 Hepatitis B Vaccines (1 of 3 - 19+ 3-dose series) 12/26/1986 Pneumococcal Vaccine: 50+ Ye ars (1 of 1 - PCV) 12/26/2017 Zoster Vaccines (1 of 2) 12/26/2017 COVID-19 Vaccine ( - 2023-2 5 season) 2023 Cholesterol Screening (Lipid Panel) 02/24/2024 Colorectal Cancer Screening: Colonoscopy 02/24/2024 Depression Screening 02/24/2024 HIV Screening 02/24/2024 Hepatitis C Screening 02/24/2024 Medicare Annual Wellness Visit 02/24/2024 Social Influencers of Health Screening 02/24/2024 Influenza Vaccine (#1) 2024 HIB Vaccines Aged Out No longer eligi ble based on patient's age to complete this topic HPV Vaccines Aged Out No longer eligi ble based on patient's age to complete this topic Hepatitis A Vaccines Aged Out No long er eligible based on patient's age to complete this topic IPV Vaccines Aged Out No longer eligi ble based on patient's age to complete this topic MMR Vaccines Aged Out No longer eligi ble based on patient's age to complete this topic Meningococcal ACWY Vaccine Aged Out N o longer eligible based on patient's age to complete this topic Meningococcal B Vaccine Aged Out No l onger eligible based on patient's age to complete this topic RSV Immunization Patients Un twila 20 months Aged Out No longer eligible b ased on patient's age to complete this topic Varicella Vaccines Aged Out No longer eligible based on patient's age to complete this topic Insurance MEDICARE MEDICAID - [place] Care Teams Credit Verification Clerk Relationship Specialty Start Date End Date Anirudh Peterson MD [address] [place] [address] [place] [address] PCP - General Internal Medicine 02/24/24
== END 2024-11-02 12:55 | disposition home or self-care (01) ==
LOC: HO.US 12:54
PROVIDERS: PCP Internal Medicine; Visit Provider Urology
DX: C64.9 Malignant neoplasm of unspecified kidney, except renal pelvis (principal)
CPT/HCPCS: 76775

== ENCOUNTER → 2024-11-02 12:56 | Outpatient (BNV) | payer MEDICARE, MEDICAID, SELFPAY | PROVIDERS: PCP Internal Medicine; Visit Provider Specialist | DX: N28.1 Cyst of kidney, acquired (principal) | CPT/HCPCS: 76775 ==

== ENCOUNTER 2024-11-21 10:17 | Outpatient (AMB) | payer MEDICARE, MEDICAID, SELFPAY ==
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
--- OUTSIDE RECORDS SUMMARY | 2024-11-21 10:53 | XMS_ITS | Clinical Summary ---
Author Organization [facility] Address [address] [place] [address] Phone Care Team Providers Care Scrap Bunch Maker Name Role Phone Anirudh Peterson MD Primary [...] Panel) 02/24/2024 Colorectal Cancer Screening: Colonoscopy 02/24/2024 HIV Screening 02/24/2024 Hepatitis C Screening 02/24/2024 Medicare Annual Wellness Visit 02/24/2024 Social Influencers of Health Screening 02/24/2024 Depression Screening 04/18/2024 Influenza Vaccine (#1) 2024 HIB Vaccines Aged [...] Insurance MEDICARE MEDICAID - [place] Care Teams Scrap Bunch Maker Relationship Specialty Start Date End Date Anirudh Peterson MD [address] [place] [address] [place] [address] PCP - General Internal Medicine 02/24/24
--- OUTSIDE RECORDS SUMMARY | 2024-11-21 10:53 | XMS_ITS | Clinical Summary ---
Author Organization [facility] Address [address] [place] [address] Phone Care Team Providers Care Juice Tester Name Role Phone Anirudh Mallory MD Primary [...] Care Team (Late st Contact Info) Description 03/28/2025 1:30 PM EST Office Visit [facility] [address] [place] [address] Satish Donahue MD [address] [facility] [address] [place] [address] Health Maintenance Due Date Last Done Comments Hepatitis B Vaccine (1 of 3 - 19+ 3-dose series) 12/26/1986 08/16/2001, 01/09/2001 Pneumococcal Vaccine: 50+ Ye ars (1 of 2 - PCV) 12/26/1986 Colorectal Cancer Screening: Annual FOBT 12/26/2016 Colorectal Cancer Screening: Colonoscopy 12/26/2016 Colorectal Cancer Screening: Sigmoidoscopy 12/26/2016 Influenza Vaccine (#1) 2024 , 02/11/2023, 03/06/2021, Additional history exists Insurance Medicare Medicaid [place] Medicare [place] Care Teams Juice Tester Relationship Specialty Start Date End Date Anirudh Mallory MD [address] [place] [address] PCP - General Internal Medicine 02/19/21
--- OUTSIDE RECORDS SUMMARY | 2024-11-21 10:53 | XMS_ITS | Patient Health Record ---
Author Organization [facility] Address [address] [place] [address] Care Team Providers Care Stummel Selector Name Role Phone Kamlesh Butler [phone] Reason For Referral No Information Plan Of Treatment No Information
--- OUTSIDE RECORDS SUMMARY | 2024-11-21 10:53 | XMS_ITS | Encounter Summary ---
Author Organization [employer] Address [address] [place] [address] Care Team Providers Care Quality Manager Name Role Phone Anirudh Astudillo MD Primary Care Provide r Ryan Enriquez PharmD Unavailable [phone] Reason for Visit * Reason Comments Med Refill Encounter Details Date Type Department Care Team (Late st Contact Info) Description 06/22/2024 Refill [facility] [address] [place] [address] Steve Capps MD [address] [place] [address] Uncomplicated opioid dependence (CMS/HCC) Social History Tobacco [...] Care Team (Late st Contact Info) Description 02/08/2025 9:00 AM EDT Office Visit [facility] [address] [place] [address] Steve Capps MD [address] [place] [address] documented as of this encounter Goals Goal Patient Goal Type Associated Problems Recent Progress Patient-Stated? Author Blood Pressure < 140/90 Blood Pressure Essential (primary) hypertension 140/89(2024 10:34 AM EDT) No Ryan Enriquez, PharmD Note: Unable to assess today/ revisit at next visit documented as of this encounter Visit Diagnoses Diagnosis Uncomplicated opioid dependence (CMS/HCC) documented in this encounter Additional Health Concerns Assessment Noted Time PHQ-9 Depression Total Score: 0 05/31/19 25 10:24 AM EST documented as of this encounter Care Teams Quality Manager Relationship Specialty Start Date End Date Anirudh Astudillo MD [address] [place] [address] PCP - General Internal Medicine 02/14/17 Ryan Enriquez, Seth [address] [place] [address] Pharmacist Internal Medicine 11/01/22 documented as of this encounter
== END 2024-11-21 10:48 | disposition home or self-care (01) ==
LOC: HO.HUSH 10:18
PROVIDERS: PCP Internal Medicine; Visit Provider Urology
DX: C64.9 Malignant neoplasm of unspecified kidney, except renal pelvis (principal); N52.9 Male erectile dysfunction, unspecified; N20.0 Calculus of kidney; N40.1 Benign prostatic hyperplasia with lower urinary tract symptoms; N13.8 Other obstructive and reflux uropathy
CPT/HCPCS: 99213; G2211

== ENCOUNTER → 2024-11-21 10:17 | Outpatient (BNVA) | payer MEDICARE, MEDICAID, SELFPAY | PROVIDERS: PCP Internal Medicine; Visit Provider Urology | DX: C64.9 Malignant neoplasm of unspecified kidney, except renal pelvis (principal); N52.9 Male erectile dysfunction, unspecified; N20.0 Calculus of kidney | CPT/HCPCS: 81003; 99212 ==

== ENCOUNTER 2024-12-25 13:24 | Outpatient (AMB) | payer MEDICARE, MEDICAID, SELFPAY ==
[2024-12-25 13:38] VITALS: BP 110/72; PULSE 68; O2SAT 98; BMI 32.6
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
--- OUTSIDE RECORDS SUMMARY | 2024-12-25 15:51 | XMS_ITS | Encounter Summary ---
Author Organization [employer] Address [address] [place] [address] Care Team Providers Care Amortization Clerk Name Role Phone Anirudh Astudillo MD Primary Care Provide r Ryan Enriquez PharmD Unavailable [phone] Reason for Visit * Reason Comments Med Refill Encounter Details Date Type Department Care Team (Late st Contact Info) Description 06/22/2024 Refill [facility] MEDICINE [address] [place] [address] Steve Capps MD [address] [place] [address] Uncomplicated opioid dependence (CMS/HCC) Social History Tobacco [...] Description 02/08/2025 9:00 AM EDT Office Visit [facility] MEDICINE [address] [place] [address] Steve Capps MD [address] [place] [address] documented as of this encounter Goals Goal Patient Goal Type Associated Problems Recent Progress Patient-Stated? Author Blood Pressure < 140/90 Blood Pressure Essential (primary) hypertension 128/83(2024 5:18 PM EDT) No Ryan Enriquez, PharmD Note: Unable to assess today/ revisit at next visit documented as of this encounter Visit Diagnoses Diagnosis Uncomplicated opioid dependence (CMS/HCC) documented in this encounter Additional Health Concerns Assessment Noted Time PHQ-9 Depression Total Score: 0 05/31/19 25 10:24 AM EST documented as of this encounter Care Teams Amortization Clerk Relationship Specialty Start Date End Date Anirudh Astudillo MD [address] [place] [address] PCP - General Internal Medicine 02/14/17 Ryan Enriquez, Seth [address] [place] [address] Pharmacist Internal Medicine 11/01/22 documented as of this encounter
--- OUTSIDE RECORDS SUMMARY | 2024-12-25 15:52 | XMS_ITS | Encounter Summary ---
Author Organization [employer] Address [address] [place] [address] Care Team Providers Care Light Air Defense Artillery Crewmember Name Role Phone Anirudh Astudillo MD Primary Care Provide r Ryan Enriquez PharmD Unavailable [phone] Reason for Visit * Reason Comments Med Refill Encounter Details Date Type Department Care Team (Late st Contact Info) Description 03/24/2023 Refill [facility] MEDICINE [address] [place] [address] Steve Capps MD [address] [place] [address] Uncomplicated opioid dependence (CMS/HCC) Social History Tobacco Use Types Packs/Day Years Used Date Smoking Tobacco: Some Days Cigarettes 0.3 0.5 Passive Smoke Exposure: Current Smokeless Tobacco: Former Alcohol Use Standard Drinks/Week Comments Never 0 (1 standard drink = 0.6 oz pur e alcohol) Depression Answer Date Recorded Patient Health Questionnaire-9 Score 9 05/20/2022 Housing Stability Answer Date Recorded What is [...] got money to buy more: Never True 01/31/2023 Within the past 12 months,th e food [...] Answer Date Recorded Patient Health Questionnaire-2 Score 4 05/20/2022 Sex and Gender Information Value Date Recorded Sex Assigned at Male 02/15/2022 10:14 AM EDT Legal Sex Male 10:14 AM EDT Gender Identity Male 02/15/2022 10:14 AM EDT Sexual Orientation Straight 02/15/2022 10 :14 AM EDT documented as of this encounter Plan of Treatment Upcoming Encounters Date Type Department Care Team (Late st Contact Info) Description 02/08/2025 9:00 AM EDT Office Visit [facility] MEDICINE [address] [place], [place] [phone] Steve Capps MD [address] [place], [place] [phone] documented as of this encounter Goals Goal Patient Goal Type Associated Problems Recent Progress Patient-Stated? Author Blood Pressure < 140/90 Blood Pressure Essential (primary) hypertension 128/83(2024 5:18 PM EDT) No Ryan Enriquez, Seth Note: Unable to assess today/ revisit at next visit documented as of this encounter Visit Diagnoses Diagnosis Uncomplicated opioid dependence (CMS/HCC) documented in this encounter Additional Health Concerns Assessment Noted Time PHQ-9 Depression Total Score: 9 05/20/19 23 10:39 AM EST documented as of this encounter Care Teams Light Air Defense Artillery Crewmember Relationship Specialty Start Date End Date Anirudh Astudillo MD [address] [place] [phone] PCP - General Internal Medicine 02/14/17 Ryan Enriquez PharmD [address] [place] [address] [phone] Pharmacist Internal Medicine 11/01/22 documented as of this encounter
--- OUTSIDE RECORDS SUMMARY | 2024-12-25 15:52 | XMS_ITS | Encounter Summary ---
Author Organization [employer] Address [address] [place] [address] Care Team Providers Care Ms Access Database Developer Name Role Phone Anirudh Astudillo MD Primary Care Provide r Ryan Enriquez PharmD Unavailable [phone] Reason for Visit * Reason Comments Med Refill Encounter Details Date Type Department Care Team (Late st Contact Info) Description 07/22/2023 Refill [facility] MEDICINE [address] [place] [address] Steve Capps MD [address] [place] [address] Uncomplicated opioid dependence (CMS/HCC) Social History Tobacco Use Types Packs/Day Years Used Date Smoking Tobacco: Some Days Cigarettes 0.3 0.5 Passive Smoke Exposure: Current Smokeless Tobacco: Former Comments:Smoking less than 1 cig/ daily down to even 1 weekly. Alcohol Use Standard Drinks/Week Comments Never 0 (1 standard drink = 0.6 oz pur e alcohol) Depression Answer Date Recorded Patient Health Questionnaire-9 Score 5 05/26/2023 Patient Health Questionnaire-9 Score 5 05/26/2023 Last PHQ-9: Questionnaire Data Not on file 0 05/26/2023 Housing Stability Answer Date Recorded What is your housing situation today? I have kristal patel 01/31/[address] you li ve. Do you have problems with any of the following? None of the above 01/31/2023 Food Insecurity Answer Date Recorded Within the past 12 months, y ou worried that your food would run out before you got money to buy more: Sometimes True 2023 Within the past 12 months,th e food you bought just didn't last and you didn't have enough money to get more: Sometimes True 05/16/2023 Transportation Answer Date Recorded In the past [...] Answer Date Recorded Patient Health Questionnaire-2 Score 2 05/26/2023 Sex and Gender Information Value Date Recorded Sex Assigned at Male 02/15/2022 10:14 AM EDT Legal Sex Male 10:14 AM EDT Gender Identity Male 02/15/2022 10:14 AM EDT Sexual Orientation Straight 02/15/2022 10 :14 AM EDT documented as of this encounter Plan of Treatment Upcoming Encounters Date Type Department Care Team (Late st Contact Info) Description 02/08/2025 9:00 AM EDT Office Visit [facility] MEDICINE [address] [place] [address] Steve Capps MD [address] [place] [address] documented as of this encounter Goals Goal Patient Goal Type Associated Problems Recent Progress Patient-Stated? Author Blood Pressure < 140/90 Blood Pressure Essential (primary) hypertension 128/83(2024 5:18 PM EDT) No Ryan Enriquez PharmD Note: Unable to assess today/ revisit at next visit documented as of this encounter Visit Diagnoses Diagnosis Uncomplicated opioid dependence (CMS/HCC) documented in this encounter Additional Health Concerns Assessment Noted Time PHQ-9 Depression Total Score: 5 05/26/19 24 2:40 PM EST documented as of this encounter Care Teams Ms Access Database Developer Relationship Specialty Start Date End Date Anirudh Astudillo MD [address] [place] [address] PCP - General Internal Medicine 02/14/17 Ryan Enriquez, Seth [address] [place] [phone] Pharmacist Internal Medicine 11/01/22 documented as of this encounter
--- OUTSIDE RECORDS SUMMARY | 2024-12-25 15:52 | XMS_ITS | Clinical Summary ---
Author Organization [facility] Address [address] [place] [address] Phone Care Team Providers Care Inside Sales Account Executive Name Role Phone Anirudh Mallory MD Primary [...] Visit [facility] [address] [place] [address] Satish Donahue MD [address] [facility] [address] [place] [address] Health Maintenance Due Date Last [...] Medicaid [place] Care Teams Inside Sales Account Executive Relationship Specialty Start Date End Date Anirudh Mallory MD [address] [place] [address] PCP - General Internal Medicine 02/19/21
--- OUTSIDE RECORDS SUMMARY | 2024-12-25 15:52 | XMS_ITS | Encounter Summary ---
Author Organization [employer] Address [address] [place] [address] Care Team Providers Care Marketing Engineer Name Role Phone Anirudh Astudillo MD Primary Care Provide r Ryan Enriquez PharmD Unavailable [phone] Encounter Details Date Type Department Care Team ([facility] st Contact Info) Description 03/04/2023 Abstract [facility] [address] [place] [address] Nina Goode Social History Tobacco Use Types Packs/Day Years [...] Description 02/08/2025 9:00 AM EDT Office Visit [facility] [address] [place] [address] Steve Capps MD [address] [place] [address] documented as of this encounter Goals Goal Patient Goal Type Associated Problems Recent Progress Patient-Stated? Author Blood Pressure < 140/90 Blood Pressure Essential (primary) hypertension 128/83(2024 5:18 PM EDT) No Ryan Enriquez, PharmD Note: Unable to assess today/ revisit at next visit documented as of this encounter Visit Diagnoses Not on filedocumented in this encounter Additional Health Concerns Assessment Noted Time PHQ-9 Depression Total Score: 9 05/20/19 23 10:39 AM EST documented as of this encounter Care Teams Marketing Engineer Relationship Specialty Start Date End Date Anirudh Astudillo MD [address] [place] [phone] PCP - General Internal Medicine 02/14/17 Ryan Enriquez PharmD [address] [place] [id number] Pharmacist Internal Medicine 11/01/22 documented as of this encounter
--- OUTSIDE RECORDS SUMMARY | 2024-12-25 15:52 | XMS_ITS | Encounter Summary ---
Author Organization [employer] Address [address] [place] [address] Care Team Providers Care Turf Farmer Name Role Phone Anirudh Astudillo MD Primary Care Provide r Ryan Enriquez PharmD Unavailable [phone] Reason for Visit * Reason Comments Med Refill Encounter Details Date Type Department Care Team (Late st Contact Info) Description 01/31/2023 Refill [facility] [address] [place] [address] Anirudh Astudillo MD [address] [place], [place] [phone] Pain Social History Tobacco Use Types Packs/Day Years [...] Description 02/08/2025 9:00 AM EDT Office Visit [facility] [address] [place] [address] Steve Capps MD [address] [place] [address] documented as of this encounter Goals Goal Patient Goal Type Associated Problems Recent Progress Patient-Stated? Author Blood Pressure < 140/90 Blood Pressure Essential (primary) hypertension 128/83(2024 5:18 PM EDT) No Ryan Enriquez PharmD Note: Unable to assess today/ revisit at next visit documented as of this encounter Visit Diagnoses Diagnosis Pain Generalized pain documented in this encounter Additional Health Concerns Assessment Noted Time PHQ-9 Depression Total Score: 9 05/20/19 23 10:39 AM EST documented as of this encounter Care Teams Turf Farmer Relationship Specialty Start Date End Date Anirudh Astudillo MD [address] [place] [phone] PCP - General Internal Medicine 02/14/17 Ryan Enriquez PharmD [address] [place] [phone] Pharmacist Internal Medicine 11/01/22 documented as of this encounter
--- OUTSIDE RECORDS SUMMARY | 2024-12-25 15:52 | XMS_ITS | Clinical Summary ---
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 encouraged about medication compliance, counseled about weight loss. Assessment & Plan (11/01/2022 4:12 PM EDT): - Unable to make an assessment at this time. No BP readings available. - BP monitor RX sent; per girlfriend, [employer]ODUCTION [employer] REPAIRER to help record BP and report readings at next f/u scheduled for 1 month from now. - Amlodipine filled at [facility]/ new order sent to [facility] pharmacy. Assessment & Plan (10/05/2022 1:33 PM EDT): Patient here for a follow up He continues on a regimen of: Atenolol 100 mg po daily, Lisinopril 20 mg po daily, Amlodipine 10 mg po daily and Chlortalidone 25 mg po daily ( started by our CDTM team ) Patient reports compliance with medications. Most recent, Bun and Creatinine done on: 08/06/2022 showed a SCr 1.53 Plan: Pt to continue to follow with Nephrology, Last seen June 2022 recommended 4 month follow up Patient advised to adhere to a low sodium diet, encouraged about medication compliance, counseled about weight loss. Assessment & Plan (09/07/2022 1:10 PM EDT): Patient here for a follow up He continues on a regimen of: Atenolol 100 mg po daily, Lisinopril 20 mg po daily, Amlodipine 10 mg po daily and Chlortalidone 25 mg po daily ( started by our CDTM team ) Patient reports compliance with medications. Most recent, Bun and Creatinine done on: 08/06/2022 showed a SCr 1.53 Plan: Pt to continue to follow with Nephrology, Last seen June 2022 recommended 4 month follow up Patient advised to adhere to a low sodium diet, encouraged about medication compliance, counseled about weight loss. 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 Most recent, Bun and Creatinine done on: 06/30/2022 showed a SCr 1.52 Plan: Pt to continue to follow with Nephrology, Last seen June 2022 recommended 4 month follow up Patient advised to adhere to a low sodium diet, encouraged about medication compliance, counseled about weight loss. Assessment & Plan (05/20/2022 11:16 AM EST): Patient is here for a f/u regarding his HTN Elevated, ran out of Chlorthalidone He is on a regimen of: Atenolol 100 mg po daily, Lisinopril 20 mg po daily, Amlodipine 5 mg po daily and Chlortalidone 25 mg po daily started by our CDTM team pt reports compliance with medications, confirmed with Pharmacy Most recent, Bun and Creatinine done on: 05/14/2022 showed a SCr 1.59 Plan: Pt to continue to follow with Nephrology Patient advised to adhere to a low sodium diet, encouraged about medication compliance, counseled about weight loss. Moderate persistent asthma 07/13/2016 Overview (07/04/2023): Pharmacotherapy: updated 07/04/2023 - Albuterol HFA 90mcg/puff - Montelukast 10mg daily ( -- per patient; not taking) History: Updated 07/04/2023 - Uses albuterol 1x/week; not taking montelukast at this time. Reports that his asthma was worse when he used to smoke. He now uses less than 1 cig/ daily and his breathing is much better. Assessment & Plan (10/23/2024 10:25 AM EDT): No recent exacerbations Assessment & Plan (07/04/2023 3:02 PM EDT): Assessment: - Asthma is well-controlled per NAEPP guidelines Plan: - Continue with use of rescue inhaler as needed Assessment & Plan (05/19/2022 2:28 PM EST): No recent exacerbation Renal stone 07/22/2015 Assessment & Plan (07/15/2022 9:05 AM EDT): Under the care of Urology Dr Hung, last US showed a left renal stone Pt tells me he has a follow up with him in July Assessment & Plan (05/19/2022 2:30 PM EST): Under the care of Urology Dr Hung, last US showed a left renal stone Tobacco dependence syndrome 10/01/2011 Assessment & Plan (05/19/2022 2:32 PM EST): Has used patches in the past Allergic rhinitis 09/07/2011 Depression, recurrent 04/18/1959 Assessment & Plan (10/25/2023 11:47 AM EDT): Doing well, Seeing Dr Perkins at [facility] psychiatrist and a therapist On Clonazepam 0.5 mg po at bedtime Hydroxyzine 25 mg TID PRN Quetiapine 300 mg at bedtime spoke to Pharmacy he has 1 refill on Clonazepam and Hydroxyzine and 2 on Quetiapine Assessment & Plan (07/26/2023 11:05 AM EDT): Doing well, Seeing Dr Perkins at [facility] psychiatrist and a therapist On Clonazepam 0.5 mg po at bedtime Hydroxyzine 25 mg TID PRN Quetiapine 300 mg at bedtime spoke to Pharmacy he has 1 refill on Clonazepam and Hydroxyzine and 2 on Quetiapine His significant other is trying to transfer his care at [facility] Assessment & Plan (04/28/2023 3:32 PM EST): Doing well, Seeing Dr Perkins at [facility] psychiatrist and a therapist On Clonazepam 0.5 mg po at bedtime Hydroxyzine 25 mg TID PRN Quetiapine 300 mg at bedtime spoke to Pharmacy he has 1 refill on Clonazepam and Hydroxyzine and 2 on Quetiapine His significant other is trying to transfer his care at [facility] Assessment & Plan (05/19/2022 2:30 PM EST): Doing well, sees a psychiatrist and a therapist Encounters Date Type Department Care Team Description 12/04/2024 1:00 PM EDT Clinical Support [address] [id number] Mili Harris RN Excessive ear wax, left 12/04/2024 Travel 11/27/2024 5:20 PM EDT Office Visit [facility] [address] [place] [phone] Kimberly Reyez MD Acute otitis externa of right ear, unspecified type (Primary Dx); Excessive ear wax, left 11/27/2024 Travel 11/16/2024 9:00 AM EDT Clinical Support [address] [address] Maya Larose, RN Opioid use disorder in remission; Opioid dependence, uncomplicated ([facility]) 11/16/2024 Travel 11/09/[address] [address] Maya Larose, RN Uncomplicated opioid dependence ([facility]/HCC) 11/02/2024 Orders Only [facility] External Provider, [facility] 10/23/2024 10:15 AM EDT Office Visit [address] [address] Anirudh Astudillo MD Essential (primary) hypertension (Primary Dx); Hypertriglyceridemia; Preventative health care; Chronic midline low back pain without sciatica; Moderate persistent asthma without complication; Stage 2 chronic kidney disease; Class 1 obesity due to excess calories with serious comorbidity and body mass index (BMI) of 33.0 to 33.9 in adult; Dietary counseling; Exercise counseling; Hypersomnolence 10/23/2024 Travel 10/22/2024 Telephone [facility] MEDICINE [address] [place] [address] Anirudh Astudillo MD chart prep 10/15/2024 Patient Outreach [facility] MED & PEDS [address] [place] [address] Anirudh Astudillo MD Pre-visit Planning (SDOH was already completed) 10/02/2024 5:40 PM EDT Office Visit [facility] [address] [place], [place] [phone] Wendi Tran MD Essential (primary) hypertension (Primary Dx); Excoriation of right ear canal, initial encounter 10/02/2024 Travel from Last 3 Months Immunizations Immunization Administration Dates Next Due DTP 09/11/1992 Hep B, adult 08/16/2001,01/09/2001 Influenza injectable quadriv alent IIV4 with preservative 01/12/2018,01/30/2015 Influenza injectable quadriv alent preservative free 02/11/2023,03/06/2021,01/29/2020,2018 Influenza, seasonal, injecta ble, preservative free 01/26/2024 MMR 04/04/1989 Pfizer Covid-19 Vaccine 12+ 02/11/2023 TD (adult), 2 Lf tetanus tox oid, preservative free, adsorbed 06/23/2009 Tdap 05/31/2024,05/28/2011 Social History Tobacco Use Types Packs/Day Years Used Date Smoking Tobacco: Some Days Cigarettes 0.3 1.5 Passive Smoke Exposure: Current Smokeless Tobacco: Former Tobacco Cessation:Ready to Q uit: Not Asked; Counseling Given: Not Answered Comments:Smoking less than 1 cig/ daily down [...] Orientation Straight 02/15/2022 10 :14 AM EDT Last Filed Vital Signs Vital Sign Reading Time Taken Comments Blood Pressure 128/83 11/27/2024 5:18 PM EDT Pulse 68 11/27/2024 5:18 PM EDT Temperature 35.6 C (96 F) 11/27/2024 5:18 PM EDT Respiratory Rate 20 11/27/2024 5:18 PM EDT Oxygen Saturation 98% 10/23/2024 10:20 AM EDT Inhaled Oxygen Concentration - - Weight 99.2 kg (218 lb 9.6 oz) 11/27/2024 5:18 P M EDT Height 172.7 cm (5' 8 ) 11/27/2024 5:18 PM EDT Body Mass Index 33.24 11/27/2024 5:18 PM EDT Plan of Treatment Upcoming Encounters Date Type Department Care Team (Late st Contact Info) Description 02/08/2025 9:00 AM EDT Office Visit [facility] MEDICINE [address] [place] [address] Steve Capps MD [address] [place] [address] Health Maintenance Due Date Last Done Comments CT Colonography 1965 Colonoscopy 1965 Dental Oral Exam 1965 Dental X-Ray: Bitewings 1965 Sigmoidoscopy 1965 Pneumococcal Vaccine: 50+ Years (1 of 2 - PCV) 12/26/1986 Hepatitis B Vaccines (3 of 3 - 19+ 3-dose series) 10/11/2001 08/16/2001, 01/09/2001 Zoster Vaccines (1 of 2) 12/26/2017 Dental Prophylaxis 03/20/2023 09/17/2022 FIT 08/08/2023 08/07/2022 COVID-19 Vaccine ( season) 2024 02/11/2023, 09/18/2021, 04/03/2021, Additional history exists Influenza Vaccine (#1) 2024 , 02/11/2023, 03/06/2021, Additional history exists FOBT 02/07/2025 02/08/2024, 08/07/2022 SDOH Screening 05/17/2025 05/17/2024 Alcohol/Substance Use Screening 05/31/2025 05/31/2024 Depression Screening 05/31/2025 05/31/2024, 05/31/19 Dental X-Ray: Full Mouth 08/25/2025 08/24/2022 Disability Screening 10/23/2025 10/23/2024 Tobacco Screening 11/27/2025 11/27/2024 Lipid Panel 01/12/2029 01/13/2024, 06/16, 02/10/2021 DTaP/Tdap/Td Vaccines (5 - Td or Tdap) 05/31/2034 05/31/2024, 05/28/2011, 06/23/2009, Additional history exists Colorectal Cancer Screening 06/13/2034 FIT DNA/Cologuard 06/13/2034 02/08/2024 RSV Patients and Patients Aged 60 years or older (1 - 1-dose 75+ series) 12/26/2042 HIV Screening Completed 01/13/2024, 08/17, 02/01/2020 Hepatitis C Screening Completed 01/13/2024 , 01/13/2024, 09/07/2022, Additional history exists HIB Vaccines Aged Out No longer eligi [...] patient's age to complete this topic Meningococcal Vaccine Aged Out No zuri morena eligible based on patient's age to complete this topic RSV under 20 months Aged Out No longe r eligible based on patient's age to complete this topic Rotavirus Vaccines Aged Out No longer eligible based on patient's age to complete this topic Goals Goal Patient Goal Type Associated Problems Recent Progress Patient-Stated? Author Blood Pressure < 140/90 Blood Pressure Essential (primary) hypertension 128/83(2024 5:18 PM EDT) No Ryan Enriquez, JoseD Note: Unable to assess today/ revisit at next visit Increase coping skills to promote long-term recovery and improve ability to perform daily activities General On track( 025 3:44 PM EDT) No Shy Mtz, guardian family member Procedure Name Priority Date/Time Associated Diagnosis Comments AL REMOVAL IMPACTED CERUMEN IRRIGATION/LVG UNILAT Routine 12/04/2024 1:39 PM EDT Excessive ear wax, left POCT KENDRICK-14 URINE DRUG SCREEN Routine 11/16/2024 3:38 PM EDT Opioid use disorder in remission Opioid dependence, uncomplicated (CMS/HCC) US RENAL LT Routine 11/02/2024 5:21 PM EDT LAB COLOGUARD COLON CANCER SCREEN Routine 02/08/2024 9:30 AM EDT Colon cancer screening HEPATITIS C AB W/REFL TO HCV RNA, QN, PCR Routine 01/13/2024 9:07 AM EDT Uncomplicated opioid dependence (CMS/HCC) HIV 1/2 ANTIGEN/ANTIBODY, FOURTH GENERATION W/RFL Routine 01/13/2024 9:07 AM EDT Uncomplicated opioid dependence (CMS/HCC) LIPID PANEL, STANDARD Routine 01/13/2024 9:07 AM EDT Essential (primary) hypertension PROPHYLAXIS - ADULT Routine 09/17/2022 3 :00 PM EDT Dental calculus PANORAMIC RADIOGRAPHIC IMAGE Routine 08/24/2022 1:30 PM EDT FECAL GLOBIN BY IMMUNOCHEMISTRY Routine 08/07/2022 6:00 AM EDT from Last 3 Months or Most Recently Relevant to Health Maintenance Results * AL REMOVAL IMPACTED CERUMEN IRRIGATION/LVG UNILAT (12/04/2024 1:39 PM EDT) Mili Donahue RN - 12/04/2024 1:39 PM EDT Mili Harris RN 12/04/2024 1:43 PM Ear Cerumen Removal Date/Time: 12/04/2024 1:39 PM Performed by: Mili Harris RN Authorized by: Serenity Johnson MD Consent: Consent obtained: Verbal Consent given by: Patient Risks, benefits, and alternatives were discussed: yes Risks discussed: Pain, dizziness and incomplete removal Alternatives discussed: No treatment and delayed treatment Lyndon protocol: Patient identity confirmed: Verbally with patient Procedure details: Location: L ear Procedure type: irrigation Procedure outcomes: unable to remove cerumen Post-procedure details: Inspection: TM intact Procedure completion: Procedure terminated at patient's request Comments: Pt did not use Debrox prior to appt. Pt reported dizziness and discomfort soon after procedure started. Discontinued per pt request. After resting, pt felt better. Educated to move slowly. Advised pt to use Debrox as prescribed and call to reschedule if desired. Pt verbalized understanding. us Serenity Sakurai MD IN CLINIC/BEDSIDE ORDERABLES Fin al Result * (ABNORMAL) POCT KENDRICK-14 Urine Drug Screen (11/16/2024 3:38 PM EDT) THC Negative Negative Cocaine Screen, Urine Negative Negative Opiate Screen, Urine Negative Negative Methamphetamine Screen Urine Negative Negative Amphetamine Screen, Urine Negative Negative Benzodiazepines Screen, Urine Negative Negative Barbiturate Screen, Urine Negative Negative Methadone Screen, Urine Negative Negative Buprenophine Screen, Urine Positive(A) Negative TCA, Urine Negative Negative MDMA Urine Negative Negative ng/mL Oxycodone Screen, Urine Negative Negative Phencyclidine (PCP), Urine Negative Negative Fentanyl, Urine Negative Negative Urine Urine specimen obtained by clean catch procedure / Unknown 11/16/2024 3:38 PM EDT Manan Madrigal MD POINT OF CARE TEST ENTER/EDIT OR DERABLES Final Result * US RENAL LT (11/02/2024 5:21 PM EDT) Anatomical Region Laterality Modality Abdomen Ultrasound 11/02/2024 5:21 PM EDT Narrative 11/02/2024 5:22 PM EDT [place] [address] Ultrasound Report Signed Patient: Brett Arambula MR# : [id number] : 1965 Acct:[id number] Age/Sex: 58 / M ADM Date: 11/02/24 Loc: HO.US Attending Dr: Paco Hung MD Ordering Physician: Paco Hung MD Date of Service: 11/02/24 Procedure(s): US renal LT Accession Number(s): [id number] cc: Paco Hung MD; Anirudh Peterson MD CLINICAL HISTORY: C64.9 - Malignant neoplasm of unspecified kidney, except renal pelvis US Renal Comparison: US/SR - US KIDNEY BILATERAL - 04/30/22 15:35 EST Findings: Right kidney was previously removed. Left kidney measures 13.8 cm x 6 cm x 5.5 cm. 6 mm cyst in the midpole of the left kidney. No collecting system dilatation of left kidney. Normal color Doppler. IMPRESSION: 1. 6 mm left renal cyst. 2. Status post right nephrectomy. This document has been electronically signed by: Marilee Naidu MD on 11/02/2024 17:21:37 Dictated By: Marilee Naidu MD Signed By: <Electronically signed by Marilee Naidu MD in OV> 11/02/241721 DD/ 20 TD/TT: 11/02/241720 Metal Mixer: Procedure Note Donotuseinterpreter, Image - 11/02/2024 [place] [address] Ultrasound Report Signed Patient: Марина Arambula# : [id number] : 1965Acct:[id number] Age/Sex: 58 / MADM Date: 11/02/24 Loc: HO.US Attending Dr: Paco Hung MD Ordering Physician: Paco Hung MD Date of Service: 11/02/24 Procedure(s): US renal LT Accession Number(s): [id number] cc: Paco Hung MD; Anirudh Peterson MD CLINICAL HISTORY: C64.9 - Malignant neoplasm of unspecified kidney, exceptrenal pelvis US Renal Comparison: US/SR - US KIDNEY BILATERAL - 04/30/22 15:35 EST Findings: Right kidney was previously removed. Left kidney measures 13.8 cm x 6 cm x 5.5 cm. 6 mm cyst in the midpole of the left kidney. No collecting system dilatation of left kidney. Normal color Doppler. IMPRESSION: 1. 6 mm left renal cyst. 2. Status post right nephrectomy. This document has been electronically signed by: Marilee Naidu MD on 11/02/2024 17:21:37 Dictated By: Marilee Naidu MD Signed By: <Electronically signed by Marilee Naidu MD in OV> 11/02/241721 DD/ 20 TD/TT: 11/02/241720 Metal Mixer: [facility] External Provider IMG US PROCEDURES Final Result * (ABNORMAL) Cologuard?? colon cancer screening (02/08/2024 9:30 AM EDT) Cologuard Result Positive( A) Negative 02/15/2024 5:39 PM EDT [employer] (CLIA #:[id number]) Comment: POSITIVE TEST RESULT. A positive Cologuard result should be followed with a colonoscopy or visual examination of the colon. The normal value (reference range) for this assay is negative. TEST DESCRIPTION: Composite algorithmic analysis of stool DNA-biomarkers with hemoglobin immunoassay. Quantitative values of individual biomarkers are not reportable and are not associated with individual biomarker result reference ranges. Cologuard is intended for colorectal cancer screening of adults of either sex, 45 years or older, who are at average-risk for colorectal cancer (CRC). Cologuard has been approved for use by the U.S. FDA. The performance of Cologuard was established in a cross sectional study of average-risk adults aged 50-84. Cologuard performance in patients ages 45 to 49 years was estimated by sub-group analysis of near-age groups. Colonoscopies performed for a positive result may find as the most clinically significant lesion: colorectal cancer [4.0%], advanced adenoma (including sessile serrated polyps greater than or equal to 1cm diameter) [20%] or non- advanced adenoma [31%]; or no colorectal neoplasia [45%]. These estimates are derived from a prospective cross-sectional screening study of 10,000 individuals at average risk for colorectal cancer who were screened with both Cologuard and colonoscopy. (Tom Arreola al, N Engl J Med 2014;370(14):6428-5576.) Cologuard may produce a false negative or false positive result (no colorectal cancer or precancerous polyp present at colonoscopy follow up). A negative Cologuard test result does not guarantee the absence of CRC or advanced adenoma (pre-cancer). The current Cologuard screening interval is every 3 years. ([employer] and U.S. Multi-Society Task Force). Cologuard performance data in a 10,000 patient pivotal study using colonoscopy as the reference method can be accessed at the following location: www.[employer]/results. Additional description of the Cologuard test process, warnings and precautions can be found at www.cologuard.com. Stool specimen (specimen) 02/08/2024 9:30 AM EDT 02/09/2024 1:01 PM EDT Anirudh Boone MD LAB MOLECULAR DIAGNOS TICS ORDERABLES Final Result [employer] (CLIA #:[id number]) [place] [address], * (ABNORMAL) Hepatitis C Antibody with Reflex to HCV, RNA, Quantitative, Real- Time PCR (01/13/2024 9:07 AM EDT) Pathologist [facility] Hepatitis C Antibody Reactive( A) Nonreactive [facility] Comment:Presumptive evidence of antibodies to HCV. Blood Venous blood specimen / Unknown 01/13/2024 9:07 AM EDT 01/13/2024 11:16 AM EDT Steve Capps MD LAB BLOOD ORDERABLES Final Res ult Performing Organization Address City/Special Care [facility]/ZIP Co de Phone Number [facility] [address] [place] [phone] * HIV-1/2 Antigen and Antibodies, Fourth Generation, with Reflexes (01/13/2024 9:07 AM EDT) Pathologist [facility] HIV AB/AG Nonreactive Nonreactive [facility] Comment:HIV-1 p24 Ag and/or HIV-1/HIV-2 Ab not detected.A test result that is nonreactive does not exclude thepossibility of exposure to or infection with HIV-1 and/orHIV-2. Nonreactive results in this assay for individualswith prior exposure to HIV-1 and/or HIV-2 may be due toantigen and antibody levels that are below the limit ofdetection of this assay.The [employer] HIV Ag/Ab Combo assay result andsupplemental assay results should be interpreted inconjunction with the patient's clinical presentation,history and other laboratory results. If the results areinconsistent with clinical evidence, additional testing issuggested to confirm the result. Blood Venous blood specimen / Unknown 01/13/2024 9:07 AM EDT 01/13/2024 11:16 AM EDT us Steve Capps MD LAB BLOOD ORDERABLES Final Res ult Performing Organization Address [facility]/Special Care Hospital/[facility] Co de Phone Number [facility] [address] [place] [phone] * (ABNORMAL) Lipid Panel, Standard (01/13/2024 9:07 AM EDT) Triglycerides 141 <150 mg/dL [facility] Comment:Desirable Triglyceri de: less than 150 mg/dLBorderline High Triglyceride 150-199 mg/dLHigh Triglyceride: 200-499 mg/dLVery High Triglyceride: greater than or equal to 5OO mg/dL Cholesterol 200(H) <200 mg/dL [facility] Comment:Desirable Cholestero l: less than 200 mg/dLBorderline High Cholesterol: 200-239 mg/dLHigh Cholesterol: greater than 239 mg/dL LDL Cholesterol Calculated 138(H) <100 mg/dL [facility] Comment:Desirable LDL: less than 100 mg/dLNear Optimal/Above Optimal LDL: 110- 129 mg/dLBorderline High LDL: 130-159 mg/dLHigh LDL: 160-189 mg/dLVery High LDL: greater than or equal to 190 mg/dL HDL Cholesterol 34(L) >40 mg/dL [facility] Comment:Desirable HDL: great er than 40 mg/dL Note: This HDL assay may give artificially low results in patients with liver disease. Blood Venous blood specimen / Unknown 01/13/2024 9:07 AM EDT 01/13/2024 11:16 AM EDT us Anirudh Boone MD LAB BLOOD ORDERABLES Final Result Performing Organization Address City/[facility] Care [facility]/ZIP Co de Phone Number [facility] [address] [place] [phone] * Fecal Globin by Immunochemistry (08/07/2022 6:00 AM EDT) Fecal Globin By Immunochemistry SEE NOTE [facility] Comment: FECAL GLOBIN BY IMMUNOCHEMISTRY Micro Number: [id number] Test Status: Final Specimen Source: Insure (tm) fobt test card Specimen Quality: Adequate Fecal Globin: Not Detected NO COLLECTION DATE RECEIVED. WE HAVE USED THE DATE THE SPECIMEN WAS RECEIVED BY THIS LABORATORY THE COLLECTION DATE. IF THIS IS INCORRECT, PLEASE CONTACT CLIENT SERVICES. PHONE NUMBER: 08/06/2022 9:3 2 PM EDT Narrative [facility] - 08/07/2022 6:00 AM EDT FASTING: UNKNOWN Anirudh Boone MD LAB BODY FLUIDS AND S TOOLS ORDERABLES Final Result [facility] [address], [place] [address] [facility] [address] [place] [phone] from Last 3 Months or Most Recently Relevant to Health [place] [id number] [facility] STANDARD Care Teams Pole Inspector Relationship Specialty Start Date End Date Anirudh Astudillo MD [address] [place], [place] PCP - General Internal Medicine 02/14/17 Ryan Enriquez PharmD [address] [place], [place] Pharmacist Internal Medicine 11/01/22
--- OUTSIDE RECORDS SUMMARY | 2024-12-25 15:52 | XMS_ITS | Encounter Summary ---
Author Organization [employer] Address [address] [facility] 7t [place] [address] Care Team Providers Care Slip Feeder Name Role Phone Anirudh Astudillo MD Primary Care Provide r Ryan Enriquez PharmD Unavailable [phone] Encounter Details Date Type Department Care Team (Latest Contact Info) Description 10/31/2020 Abstract [facility] CONVERSIONS Dental, Provider, DDS Social History Tobacco Use Types Packs/Day Years [...] Description 02/08/2025 9:00 AM EDT Office Visit [facility] MEDICINE [address] [place] [address] Steve Capps MD [address] [place] [address] documented as of this encounter Visit Diagnoses Not on filedocumented in this encounter Care Teams Slip Feeder Relationship Specialty Start Date End Date Anirudh Astudillo MD [address] [place] [address] PCP - General Internal Medicine 02/14/17 Ryan Enriquez, PharmD [address] [place] [address] Pharmacist Internal Medicine 11/01/22 documented as of this encounter
--- OUTSIDE RECORDS SUMMARY | 2024-12-25 15:52 | XMS_ITS | Encounter Summary ---
Author Organization [employer] Address 75 [facility] 7t [place] [address] Care Team Providers Care Core Layer Machine Operator Name Role Phone Anirudh Astudillo MD Primary Care Provide r Ryan Enriquez PharmD Unavailable [phone] Encounter Details Date Type Department Care Team (Latest Contact Info) Description 08/20/2021 Abstract [facility] CONVERSIONS Dental, Provider, DDS Social History Tobacco [...] Description 02/08/2025 9:00 AM EDT Office Visit [facility] MEDICINE [address] [place] [address] Steve Capps MD [address] [place] [address] documented as of this encounter Visit Diagnoses Not on filedocumented in this encounter Care Teams Core Layer Machine Operator Relationship Specialty Start Date End Date Anirudh Astudillo MD [address] [place] [address] PCP - General Internal Medicine 02/14/17 Ryan Enriquez, PharmD [address] [place] [address] Pharmacist Internal Medicine 11/01/22 documented as of this encounter
--- OUTSIDE RECORDS SUMMARY | 2024-12-25 15:52 | XMS_ITS | Encounter Summary ---
Author Organization [employer] Address [address] [facility] [address] 7t [place] [address] Care Team Providers Care Supervisor Fitting Name Role Phone Anirudh Astudillo MD Primary Care Provide r Ryan Enriquez PharmD Unavailable [phone] Reason for Visit * Reason Comments Med Refill Encounter Details Date Type Department Care Team (Late st Contact Info) Description 01/06/2024 Refill [facility] MEDICINE [address] [place] [address] Steve Capps MD [address] [place] [address] Uncomplicated opioid dependence (CMS/HCC) Social History Tobacco [...] Description 02/08/2025 9:00 AM EDT Office Visit [facility] MEDICINE [address] [place] [address] Steve Capps MD [address] [place] [address] documented as of this encounter Goals Goal [...] documented as of this encounter Care Teams Supervisor Fitting Relationship Specialty Start Date End Date Anirudh Astudillo MD [address] [place] [address] PCP - General Internal Medicine 02/14/17 Ryan Enriquez, Seth [address] [place] [address] Pharmacist Internal Medicine 11/01/22 documented as of this encounter
--- OUTSIDE RECORDS SUMMARY | 2024-12-25 15:52 | XMS_ITS | Encounter Summary ---
Author Organization [employer] Address [address] [facility] [address] 7t [place] [address] Care Team Providers Care Business Banking Sales Assistant Name Role Phone Anirudh Astudillo MD Primary Care Provide r Ryan Enriquez PharmD Unavailable [phone] Encounter Details Date Type Department Care Team ([facility] st Contact Info) Description 08/25/2023 Orders Only [facility] MEDICINE [address] [place] [address] Risa Regalado RN Uncomplicated opioid dependence (CMS/HCC); Opioid use disorder, mild, in early remission (CMS/HCC) Social History Tobacco Use Types Packs/Day [...] Description 02/08/2025 9:00 AM EDT Office Visit [facility] MEDICINE [address] [place], [place] [phone] Steve Capps MD 230 [place] [address] Scheduled Orders Name Type Priority Associated Diagnoses Orde r Schedule Hepatic Function Panel Lab Routine Uncomplicated opioid dependence (CMS/HCC) Expected: 08/25/2023 (Approximate), Expires: 08/24/2024 Hepatitis C Antibody with Reflex to HCV, RNA, Quantitative, Real-Time PCR Lab Routine Uncomplicated opioid dependence (CMS/HCC) Expected: 08/25/2023 (Approximate), Expires: 08/24/2024 HIV-1/2 Antigen and Antibodies, Fourth Generation, with Reflexes Lab Routine Uncomplicated opioid dependence (CMS/HCC) Opioid use disorder, mild, in early remission (CMS/HCC) Expected: 08/25/2023 (Approximate), Expires: 08/24/2024 documented as of this encounter Goals Goal Patient Goal Type Associated Problems Recent Progress Patient-Stated? Author Blood Pressure < 140/90 Blood Pressure Essential (primary) hypertension 128/83(2024 5:18 PM EDT) No Ryan Enriquez, PharmD Note: Unable to assess today/ revisit at next visit documented as of this encounter Procedures Procedure Name Priority Date/Time Associated Diagnosis Comments HEMATOXYLIN AND EOSIN STAIN Routine 06/13/2024 2:01 PM EST Uncomplicated opioid dependence (CMS/HCC) HEPATITIS C VIRAL RNA, QUANTITATIVE, REAL-TIME PCR Routine 01/13/2024 9:07 AM EDT Uncomplicated opioid dependence (CMS/HCC) documented in this encounter Results * Hematoxylin and Eosin Stain (06/13/2024 2:01 PM EST) 06/13/2024 2:01 PM EST 06/14/2024 8:24 AM EST [facility] - 06/15/2024 4:42 PM EST ----- ------- Name: Brett Arambula Age/Sex: 58/M : 1965 Unit#: [id number] Attend Dr: Sarika Parker MD Re06/13/24 Status: [facility] Location: [facility] Disch: ----- ------- SPEC : [id number] RECD: 06/14/24 STATUS: LAKISHA CRUZ NUM: [id number] DINAH: 06/13/24-[address] [facility] [address]: Sarika Parker MD ENTERED: 06/14/24 SP TYPE: Surgical OTHR DR: Anirudh Peterson MD ORDERED: HE Stain/3, Gross Micro L4 Diagnosis Rectum, polypectomies: Hyperplastic mucosal polyps. Clinical History Pre-Op Dx: Other fecal abnormalities Post-Op Dx: Colon polyp, internal hemorrhoids Microscopic Description Microscopic sections reviewed. Material Received Rectal polyp Gross Description Received in formalin labeled rectal polyps (sic) are 5 vallejo irregular, papular and rectangular tissue fragments ranging from 0.4-0.9 cm, submitted in toto in a cassette labeled A. CEDS Copies To: Anirudh Peterson MD [address] [address] Sarika Parker MD [facility] [address] [place] [address] [phone] ----- ------- Signed (signature on file) Chinedu Kaiser MD 06/15/24 [id number] ----- ------- END OF REPORT us Generic External Data Provider LAB BLOOD ORDERAB LES Final Result [facility] [address] [place] [phone] * Hepatitis C Viral RNA, Quantitative, Real-Time PCR (01/13/2024 9:07 AM EDT) Hepatitis C Viral Load <15 NOT DETECTED NOT DETECTED IU/mL [facility] HCV Log PCR <1.18 NOT DETECTED NOT DETECTED Log IU/mL [facility] Comment:For additional infor krystle, please refer tohttp://education.Genemation/faq/XUT54y8(This link is being provided for informational/educational purposes only.)THIS TEST WAS PERFORMED AT:[employer] [place] [phone] LO MD 01/13/2024 9:07 AM EDT 01/16/2024 8:54 AM EDT us Steve Capps MD LAB BLOOD ORDERABLES Final Res ult [facility] [address] [place] [address] [phone] documented in this encounter Visit Diagnoses Diagnosis Uncomplicated opioid dependence (CMS/HCC) Opioid use disorder, mild, in early remission (CMS/HCC) documented in this encounter Additional Health Concerns Assessment Noted Time PHQ-9 Depression Total Score: 5 05/26/19 24 2:40 PM EST documented as of this encounter Care Teams Business Banking Sales Assistant Relationship Specialty Start Date End Date Anirudh Astudillo MD [address] [place] [address] PCP - General Internal Medicine 02/14/17 Ryan Enriquez PharmD [address] [place] [address] Pharmacist Internal Medicine 11/01/22 documented as of this encounter
--- OUTSIDE RECORDS SUMMARY | 2024-12-25 15:52 | XMS_ITS | Patient Health Record ---
Author Organization [employer] Address [address] [place] [address] Care Team Providers Care Pediatric Dermatologist Name Role Phone Kamlesh Butler [phone] Reason For Referral No Information Plan Of Treatment No Information
--- OUTSIDE RECORDS SUMMARY | 2024-12-25 15:52 | XMS_ITS | Clinical Summary ---
Author Organization [facility] Address [address] [place] [address] Phone Care Team Providers Care Fruit Picker Name Role Phone Anirudh Peterson MD Primary [...] 12/26/2017 Zoster Vaccines (1 of 2) 12/26/2017 Cholesterol Screening (Lipid Panel) 02/24/2024 Colorectal Cancer Screening: Colonoscopy 02/24/2024 HIV Screening 02/24/2024 Hepatitis C Screening 02/24/2024 Medicare Annual Wellness Visit 02/24/2024 Social Influencers of Health Screening 02/24/2024 Depression Screening 04/18/2024 COVID-19 Vaccine ( - 2023-2 5 season) 2024 Influenza Vaccine (#1) 2024 HIB Vaccines Aged [...] Insurance MEDICARE MEDICAID - [place] Care Teams Fruit Picker Relationship Specialty Start Date End Date Anirudh Peterson MD [address] [place] [address] [place] [address] PCP - General Internal Medicine 02/24/24
--- OUTSIDE RECORDS SUMMARY | 2024-12-25 15:52 | XMS_ITS | Encounter Summary ---
Author Organization [employer] Address [address] [facility] [address] 7t [place] [address] Care Team Providers Care Arranger Assembler Name Role Phone Anirudh Astudillo MD Primary Care Provide r Ryan Enriquez PharmD Unavailable [phone] Reason for Visit * Reason Comments Med Refill Encounter Details Date Type Department Care Team (Late st Contact Info) Description 03/02/2024 Refill [facility] MEDICINE [address] [place] [address] Steve Capps MD [address] [place] [address] Uncomplicated opioid dependence (CMS/HCC) Social History Tobacco [...] Description 02/08/2025 9:00 AM EDT Office Visit [facility] MEDICINE [address] [place] [address] Steve Capps MD [address] [place] [address] documented as of this encounter Goals Goal [...] documented as of this encounter Care Teams Arranger Assembler Relationship Specialty Start Date End Date Anirudh Astudillo MD [address] [place] [address] PCP - General Internal Medicine 02/14/17 Ryan Enriquez PharmD [address] [place] [address] Pharmacist Internal Medicine 11/01/22 documented as of this encounter
--- OUTSIDE RECORDS SUMMARY | 2024-12-25 15:52 | XMS_ITS | Encounter Summary ---
Author Organization [employer] Address [address] [facility] [address] 7t [place] [address] Care Team Providers Care Fortune Teller Name Role Phone Anirudh Astudillo MD Primary Care Provide r Ryan Enriquez PharmD Unavailable [phone] Reason for Visit * Reason Comments Med Refill Encounter Details Date Type Department Care Team (Late st Contact Info) Description 11/11/2023 Refill [facility] MEDICINE [address] [place] [address] Steve Capps MD [address] [place] [address] Uncomplicated opioid dependence (CMS/HCC) Social History Tobacco [...] Description 02/08/2025 9:00 AM EDT Office Visit [facility] MEDICINE [address] [place] [address] Steve Capps MD [address] [place] [address] documented as of this encounter Goals Goal [...] documented as of this encounter Care Teams Fortune Teller Relationship Specialty Start Date End Date Anirudh Astudillo MD [address] [place] [address] PCP - General Internal Medicine 02/14/17 Ryan Enriquez, Seth [address] [place] [address] Pharmacist Internal Medicine 11/01/22 documented as of this encounter
== END 2024-12-25 14:30 | disposition home or self-care (01) ==
LOC: HO.HSMS 13:25
PROVIDERS: PCP Internal Medicine; Visit Provider Physician Assistant Medical
DX: G47.19 Other hypersomnia (principal); R06.83 Snoring
CPT/HCPCS: 99204

== ENCOUNTER → 2024-12-25 13:24 | Outpatient (BNVA) | payer MEDICARE, MEDICAID, SELFPAY | PROVIDERS: PCP Internal Medicine; Visit Provider Physician Assistant Medical | DX: G47.19 Other hypersomnia (principal); R06.83 Snoring; E66.811 Obesity, class 1; Z68.32 Body mass index [BMI] 32.0-32.9, adult; R42 Dizziness and giddiness | CPT/HCPCS: 99202 ==

== ENCOUNTER → 2025-03-06 14:42 | Outpatient (REF) | payer MEDICARE, MEDICAID, SELFPAY ==
--- OUTSIDE RECORDS SUMMARY | 2025-03-07 03:17 | XMS_ITS | Patient Health Record ---
Author Organization [employer] Address [address] [place] [address] Care Team Providers Care Manager Outpatient Name Role Phone Kamlesh Butler [phone] Reason For Referral No Information Plan Of Treatment No Information
--- OUTSIDE RECORDS SUMMARY | 2025-03-07 03:17 | XMS_ITS | Encounter Summary ---
Author Organization [employer] Address [address] [facility] [address] 7t [place] [address] Care Team Providers Care Boat Rental Clerk Name Role Phone Anirudh Astudillo MD Primary Care Provide r Ryan Enriquez PharmD Unavailable [phone] Reason for Visit * Reason Comments Med Refill Encounter Details Date Type Department Care Team (Late st Contact Info) Description 07/22/2023 Refill [facility] MEDICINE [address] [place] [address] Steve Capps MD [address] [place] [address] Uncomplicated opioid dependence (CMS/HCC) Social History Tobacco [...] Care Team (Late st Contact Info) Description 05/03/2025 9:00 AM EST Office Visit [facility] MEDICINE [address] [place] [address] Steve Capps MD [address] [place] [phone] 05/09/2025 1:15 PM EST Office Visit [address] [address] Anirudh Astudillo MD [address] [place] [address] documented as of this encounter Goals Goal Patient Goal Type Associated Problems Recent Progress Patient-Stated? Author Blood Pressure < 140/90 Blood Pressure Essential (primary) hypertension 128/83(2024 5:18 PM EDT) No Ryan Enriquez, PharmD Note: Unable to assess today/ revisit at next visit documented as of this encounter Visit Diagnoses Diagnosis Uncomplicated opioid dependence (CMS/HCC) (HCC) documented in this encounter Additional Health Concerns Assessment Noted Time PHQ-9 Depression Total Score: 5 05/26/19 24 2:40 PM EST documented as of this encounter Care Teams Boat Rental Clerk Relationship Specialty Start Date End Date Anirudh Astudillo MD [address] [place] [address] PCP - General Internal Medicine 02/14/17 Ryan Enriquez, JoseD [address] [place] [address] Pharmacist Internal Medicine 11/01/22 documented as of this encounter
--- OUTSIDE RECORDS SUMMARY | 2025-03-07 03:17 | XMS_ITS | Encounter Summary ---
Author Organization [employer] Address [address] [facility] [address] 7t [place] [address] Care Team Providers Care Sales Order Processor Name Role Phone Anirudh Astudillo MD Primary Care Provide r Ryan Enriquez PharmD Unavailable [phone] Reason for Visit * Reason Onset Date Comments chart prep 03/04/2025 Encounter Details Date Type Department Care Team ([facility] st Contact Info) Description 03/04/2025 Telephone [facility] MEDICINE [address] [place] [address] Anirudh Astudillo MD [address] [place] [address] chart prep Social History Tobacco Use Types Packs/Day Years [...] AM EDT documented as of this encounter Miscellaneous Notes * Telephone Encounter - Nadia Sheridan [place] - 03/04/2025 11:33 AM EST ..Chart Prep Labs: not applicable Images: not applicable Vaccines due: Covid Due, Hep B Due, PCV20 Due, and Flu Due Referrals: Urology Pending appointment on 11/21, Orthopedics Pending appointment on 03/11, and Sleep Medicine Pending appointment on 03/06 Screenings: Not Applicable Overdue care gaps: SDOH documented in this encounter Plan of Treatment Upcoming Encounters Date Type Department Care Team (Late st Contact Info) Description 05/03/2025 9:00 AM EST Office Visit [facility] MEDICINE [address] [place] [address] Steve Capps MD [address] [place] [address] 05/09/2025 1:15 PM EST Office Visit [facility] MEDICINE [address] [place] [address] Anirudh Astudillo MD [address] [place] [address] documented as of this encounter Goals Goal [...] 025 3:44 PM EDT) No Shy Mtz, CANDACE documented as of this encounter Visit Diagnoses Not on filedocumented in this encounter Additional Health Concerns Assessment Noted Time PHQ-9 Depression Total Score: 0 05/31/19 25 10:24 AM EST documented as of this encounter Care Teams Sales Order Processor Relationship Specialty Start Date End Date Anirudh Astudillo MD [address] [place] [address] PCP - General Internal Medicine 02/14/17 Ryan Enriquez, Seth [address] [place] [address] Pharmacist Internal Medicine 11/01/22 documented as of this encounter
--- OUTSIDE RECORDS SUMMARY | 2025-03-07 03:17 | XMS_ITS | Encounter Summary ---
Author Organization [employer] Address [address] [facility] [address] 7t [place] [address] Care Team Providers Care Surfacer Name Role Phone Anirudh Astudillo MD Primary Care Provide r Ryan Enriquez PharmD Unavailable [phone] Encounter Details Date Type Department Care Team ([facility] st Contact Info) Description 03/04/2023 Abstract [facility] MEDICINE [address] [place] [address] Nina Goode Social History Tobacco Use Types [...] Description 05/03/2025 9:00 AM EST Office Visit [facility] MEDICINE [address] [place] [address] [phone] Steve Capps MD [address] [place] [address] [phone] 05/09/2025 1:15 PM EST Office Visit [address] [phone] Anirudh Astudillo MD [address] [place] [address] documented as of this encounter Goals Goal [...] documented as of this encounter Care Teams Surfacer Relationship Specialty Start Date End Date Anirudh Astudillo MD [address] [place] [address] [phone] PCP - General Internal Medicine 02/14/17 Ryan Enriquez PharmD [address] [place] [address] [phone] Pharmacist Internal Medicine 11/01/22 documented as of this encounter
--- OUTSIDE RECORDS SUMMARY | 2025-03-07 03:17 | XMS_ITS | Encounter Summary ---
Author Organization [employer] Address [address] [facility] [address] 7t [place] [address] Care Team Providers Care Shelter Supervisor Name Role Phone Anirudh Astudillo MD Primary Care Provide r Ryan Enriquez PharmD Unavailable [phone] Reason for Visit * Reason Comments Med Refill Encounter Details Date Type Department Care Team (Late st Contact Info) Description 01/31/2023 Refill [facility] MEDICINE [address] [place] [address] Anirudh Astudillo MD [address] [place], [place] [phone] Pain Social History Tobacco Use Types Packs/Day [...] Description 05/03/2025 9:00 AM EST Office Visit [facility] MEDICINE [address] [place] [phone] Steve Capps MD [address] [place] [address] 05/09/2025 1:15 PM EST Office Visit [facility] MEDICINE [address] [place] [address] Anirudh Astudillo MD [address] [place] [address] documented as of this encounter Goals Goal [...] documented as of this encounter Care Teams Shelter Supervisor Relationship Specialty Start Date End Date Anirudh Astudillo MD [address] [place] [phone] PCP - General Internal Medicine 02/14/17 Ryan Enriquez, JoseD [address] [place] [address] Pharmacist Internal Medicine 11/01/22 documented as of this encounter
--- OUTSIDE RECORDS SUMMARY | 2025-03-07 03:17 | XMS_ITS | Clinical Summary ---
Author Organization [employer] Address [address] [facility] 7t [place] [address] Care Team Providers Care Telex Operator Name Role Phone Anirudh Astudillo MD Primary Care Provide r Ryan Enriquez PharmD Unavailable [phone] Allergies Active Allergy Reactions Criticality Noted Date [...] 05/12/19 23 Active cetirizine (ZyrTEC) 10 MG tabletIndicatio ns:Right ear pain Take 1 tablet (10 mg) [...] 23 Active docusate sodium (Colace) 100 MG capsuleIndicati ons:Uncomplicat ed opioid dependence (CMS/HCC) (HCC) TAKE 1 TO 2 CAPSULES BY MOUTH AT BEDTIME NEEDED FOR CONSTIPATION 180 capsule 1 12/08/19 23 Active QUEtiapine (SEROquel) 400 MG tablet Take 400 mg by mouth at bedtime. 05/24/19 24 Active clonazePAM (KlonoPIN) 0.5 MG tablet Take 0.5 mg by mouth if needed at bedtime. 06/23/19 24 Active atenolol (Tenormin) 100 MG tabletIndicatio ns:Essential (primary) hypertension TAKE 1 TABLET BY MOUTH EVERY MORNING 90 tablet 3 06/11/19 25 Active chlorthalidone (Hygroton) 25 MG tabletIndicatio ns:Essential (primary) hypertension TAKE 1 TABLET BY MOUTH EVERY MORNING 90 tablet 3 06/11/19 25 Active lisinopril 20 MG tablet TAKE 1 TABLET BY MOUTH EVERY DAY 90 tablet 3 09/05/19 25 Active amLODIPine (Norvasc) 10 MG tabletIndicatio ns:Essential (primary) hypertension TAKE 1 TABLET BY MOUTH EVERY DAY IN THE MORNING 90 tablet 1 01/09/20 25 Active buprenorphine-n aloxone (Suboxone) 2-0.5 MG per sublingual filmIndications :Uncomplicated opioid dependence (CMS/HCC) (HCC) Place 2 Film under the tongue Once per day. Do not start before February 08, 2025. 56 Film 2 02/09/20 25 2025 Active montelukast (Singulair) 10 MG tabletIndicatio ns:Moderate persistent asthma without complication TAKE 1 TABLET BY MOUTH EVERY DAY IN THE EVENING 90 tablet 1 03/04/20 25 Active montelukast (Singulair) 10 MG tabletIndicatio ns:Moderate persistent asthma without complication TAKE 1 TABLET BY MOUTH EVERY EVENING 90 tablet 1 08/24/19 25 2024 Discontinued Active Problems Problem Noted Date Diagnosed Date [...] days Reconsult as needed Uncomplicated opioid dependence ([facility]) 2023 Assessment & Plan (07/26/2023 11:05 AM EDT): [...] FIOBTs instead, 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 Paco Hung. last seen 05/11/2024 Assessment & Plan (10/25/2023 11:43 AM EDT): He is s/p right Nephrectomy for Papillary Renal Cell Carcinoma He used to be under the care of Urology Dr Qing FLANAGAN, He is now He underwent a laparoscopic Right nephrectomy by Dr Cadena at [facility] followed by Dr. Paco Hung. 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 Paco Hung. last seen 05/12/2022 He underwent a laparoscopic Right nephrectomy by Dr Cadena at [facility] Assessment & Plan (05/20/2022 11:16 AM EST): He is s/p right Nephrectomy for Papillary Renal Cell Carcinoma He used to be under the care of Urology Dr Qing FLANAGAN, He is now followed by Dr. Paco Hung. last seen 05/12/2022 He underwent a laparoscopic Right nephrectomy by Dr Cadena at [facility] Hepatitis C antibody test positive 05/19/2022 Assessment [...] regimen . Plan: Will discuss with his Slat Twister Dr. Donahue for best therapeutic intervention Advised [...] the fact that both him and his client care manager are confused about the medications he should [...] the fact that both him and his client care manager are confused about the medications he should [...] the fact that both him and his client care manager are confused about the medications he should [...] the fact that both him and his client care manager are confused about the medications he should [...] by our CDTM team ) I contacted client care manager who confirmed he only took Atenolol and Lisinopril today. I referred him to start a Medbox given the fact that both him and his client care manager are confused about the medications he should be on. Most recent, Bun and Creatinine done on: 09/07/2022 was within normal limits Plan: Clonidine 0.1 mg po x 1 given BP came down. 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 - Amlodipine filled at [facility]/ new order sent to [facility] pharmacy. Assessment & Plan (10/05/2022 [...] monitor labs and BP -referred today to rayon tester x annual eye exam and monitor blurry [...] EDT): Doing well, Seeing Dr Perkins at [facility] psychiatrist and a therapist On Clonazepam 0.5 mg po at bedtime Hydroxyzine 25 mg TID PRN Quetiapine 300 mg at bedtime spoke to Pharmacy he has 1 refill on Clonazepam and Hydroxyzine and 2 on Quetiapine Assessment & Plan (07/26/2023 11:05 AM EDT): Doing well, Seeing Dr Perkins at [facility] psychiatrist and a therapist On Clonazepam 0.5 mg po at bedtime Hydroxyzine 25 mg TID PRN Quetiapine 300 mg at bedtime spoke to Pharmacy he has 1 refill on Clonazepam and Hydroxyzine and 2 on Quetiapine His significant other is trying to transfer his care at [facility] Assessment & Plan (04/28/2023 3:32 PM EST): Doing well, Seeing Dr Perkins at [facility] psychiatrist and a therapist On Clonazepam 0.5 mg po at bedtime Hydroxyzine 25 mg TID PRN Quetiapine 300 mg at bedtime spoke to Pharmacy he has 1 refill on Clonazepam and Hydroxyzine and 2 on Quetiapine His significant other is trying to transfer his care at [facility] Assessment & Plan (05/19/2022 2:30 PM EST): Doing well, sees a psychiatrist and a therapist Encounters Date Type Department Care Team Description 03/04/2025 Telephone [facility] MEDICINE [address] [place] [address] Anirudh Astudillo MD chart prep 03/03/2025 Refill [facility] MED[facility] [address] [place] [address] Serenity Johnson MD Moderate persistent asthma without complication 02/26/2025 Patient Outreach [facility] MED[facility] [address] [place] [address] Anirudh Astudillo MD Pre-visit Planning (SDOH screening was completed on 05/17/2024) 02/08/2025 9:00 AM EDT Office Visit [facility] [place] [address] Steve Capps MD Opioid dependence on maintenance agonist therapy, no symptoms (CMS/HCC) (HCC) (Primary Dx); Tobacco use 02/08/2025 Travel 02/04/2025 Refill [facility] MEDICINE [address] [place] [address] Maya Larose, RN Uncomplicated opioid dependence (CMS/HCC) (HCC) 02/04/2025 Refill [facility] MEDICINE [address] [place] [address] Maya Larose, CANDACE 01/03/2025 Refill [facility] MEDICINE [address] [place] [address] Anirudh Astudillo MD Essential (primary) hypertension 12/31/2024 Telephone [facility] MEDICINE [address] [place] [address] Anirudh Astudillo MD February recall from Last 3 Months Immunizations Immunization Administration [...] Description 05/03/2025 9:00 AM EST Office Visit [address] [address] Steve Capps MD [address] [place] [address] 05/09/2025 1:15 PM EST Office Visit [address] [address] Anirudh Astudillo MD [address] [place] [address] Health Maintenance Due Date Last Done Comments CT Colonography 1965 Colonoscopy 1965 Dental Oral Exam 1965 Dental X-Ray: Bitewings 1965 Sigmoidoscopy 1965 Pneumococcal Vaccine: 50+ Years (1 of 2 - PCV) 12/26/1986 Hepatitis B Vaccines (3 of 3 - 19+ 3-dose series) 10/11/2001 08/16/2001, 01/09/2001 RSV Patients and Patients Aged 60 years or older (1 - Risk 50-74 years 1-dose series) 12/26/2017 Zoster Vaccines (1 of 2) 12/26/2017 Dental Prophylaxis 03/20/2023 09/17/2022 FIT 08/08/2023 08/07/2022, 08/05/2022 COVID-19 Vaccine ( season) 2024 02/11/2023, 09/18/2021, 04/03/2021, Additional history exists Influenza Vaccine (#1) 2024 , 02/11/2023, 03/06/2021, Additional history exists FOBT 02/07/2025 02/08/2024, 08/07/2022 SDOH Screening 05/17/2025 05/17/2024 Alcohol/Substance Use Screening 05/31/2025 05/31/2024 Depression Screening 05/31/2025 05/31/2024, 05/31/19 25 Dental X-Ray: Full Mouth 08/25/2025 08/24/2022 Disability Screening 10/23/2025 10/23/2024 Tobacco Screening 11/27/2025 11/27/2024 Lipid Panel 01/12/2029 01/13/2024, 06/16, 02/10/2021 DTaP/Tdap/Td Vaccines (5 - Td or Tdap) 05/31/2034 05/31/2024, 05/28/2011, 06/23/2009, Additional history exists Colorectal Cancer Screening 06/13/2034 FIT DNA/Cologuard 06/13/2034 02/08/2024 HIV Screening Completed 01/13/2024, 08/17, 02/01/2020 Hepatitis [...] track( 025 3:44 PM EDT) No Shy Mtz RN Procedures Procedure Name Priority Date/Time Associated Diagnosis Comments LAB COLOGUARD COLON CANCER SCREEN Routine 02/08/2024 [...] Recently Relevant to Health Maintenance Results * (ABNORMAL) Cologuard?? colon cancer screening (02/08/2024 9:30 AM EDT) Cologuard Result Positive( A) Negative 02/15/2024 5:39 PM EDT [employer] (CLIA #:[id number]) Comment: POSITIVE TEST RESULT. A positive Cologuard [...] screened with both Cologuard and colonoscopy. (Tom Antoine et al, N Engl J Med 2014;370(14):0948-7915.) Cologuard may produce a false negative or false positive result (no colorectal cancer or precancerous polyp present at colonoscopy follow up). A negative Cologuard test result does not guarantee the absence of CRC or advanced adenoma (pre-cancer). The current Cologuard screening interval is every 3 years. ([place] [employer] Society and U.S. Multi-Society Task Force). Cologuard performance data in a 10,000 patient pivotal study using colonoscopy as the reference method can be accessed at the following location: www.[employer]/results. Additional description of the Cologuard test process, warnings and precautions can be found at www.cologuard.com. Stool specimen (specimen) 02/08/2024 9:30 AM EDT 02/09/2024 1:01 PM EDT us Anirudh Boone MD LAB MOLECULAR DIAGNOS TICS ORDERABLES Final Result [facility] (CLIA #:[id number]) [place] [address], * (ABNORMAL) Hepatitis C Antibody with Reflex to HCV, RNA, Quantitative, Real- Time PCR (01/13/2024 9:07 AM EDT) Hepatitis C Antibody Reactive( A) Nonreactive [facility] Comment:Presumptive evidence of antibodies to HCV. Blood Venous blood specimen / Unknown 01/13/2024 9:07 AM EDT 01/13/2024 11:16 AM EDT Steve Capps MD LAB BLOOD ORDERABLES Final Res ult Performing Organization Address City/[facility]/ZIP Co de Phone Number [facility] [address] [place] [phone] * HIV-1/2 Antigen and Antibodies, Fourth Generation, with Reflexes (01/13/2024 9:07 AM EDT) HIV AB/AG Nonreactive Nonreactive [facility] Comment:HIV-1 p24 Ag and/or HIV-1/HIV-2 Ab not detected.A test result that is nonreactive does not exclude thepossibility of exposure to or infection with HIV-1 and/orHIV-2. Nonreactive results in this assay for individualswith prior exposure to HIV-1 and/or HIV-2 may be due toantigen and antibody levels that are below the limit ofdetection of this assay.The [employer] HIV Ag/Ab Combo assay result andsupplemental assay results should be interpreted inconjunction with the patient's clinical presentation,history and other laboratory results. If the results areinconsistent with clinical evidence, additional testing issuggested to confirm the result. Blood Venous blood specimen / Unknown 01/13/2024 9:07 AM EDT 01/13/2024 11:16 AM EDT us Steve Capps MD LAB BLOOD ORDERABLES Final Res ult Performing Organization Address [facility]/ZIP Co de Phone Number [facility] [address] [place] [phone] * (ABNORMAL) Lipid Panel, Standard (01/13/2024 9:07 AM EDT) Triglycerides 141 <150 mg/dL [facility] Comment:Desirable Triglyceri de: less than 150 mg/dLBorderline High Triglyceride 150-199 mg/dLHigh Triglyceride: 200-499 mg/dLVery High Triglyceride: greater than or equal to 5OO mg/dL Cholesterol 200(H) <200 mg/dL [facility] Comment:Desirable Cholestero l: less than 200 mg/dLBorderline High Cholesterol: 200-239 mg/dLHigh Cholesterol: greater than 239 mg/dL LDL Cholesterol Calculated 138(H) <100 mg/dL [facility] Comment:Desirable LDL: less than 100 mg/dLNear Optimal/Above Optimal LDL: 110- 129 mg/dLBorderline High LDL: 130-159 mg/dLHigh LDL: 160-189 mg/dLVery High LDL: greater than or equal to 190 mg/dL HDL Cholesterol 34(L) >40 mg/dL [facility] Comment:Desirable HDL: great er than 40 mg/dL Note: This HDL assay may give artificially low results in patients with liver disease. Blood Venous blood specimen / Unknown 01/13/2024 9:07 AM EDT 01/13/2024 11:16 AM EDT us Anirudh Boone MD LAB BLOOD ORDERABLES Final Result Performing Organization Address [facility]/ZIP Co de Phone Number [facility] [address] [place] [phone] * Fecal Globin by Immunochemistry (08/07/2022 6:00 AM EDT) Fecal Globin By Immunochemistry SEE NOTE [facility] Comment: FECAL GLOBIN BY IMMUNOCHEMISTRY Micro Number: [id number] Test Status: Final Specimen Source: Insure (tm) [...] S TOOLS ORDERABLES Final Result [facility] [address], [place] [address] [facility] [place] [facility] [address] [place] [phone] from Last 3 Months or Most Recently Relevant to [place] [id number] [facility] Care Teams Telex Operator Relationship Specialty Start Date End Date Anirudh Astudillo MD [address] [place], [place] PCP - General Internal Medicine 02/14/17 Ryan Enriquez PharmD [address] [place], [place] Pharmacist Internal Medicine 11/01/22
--- OUTSIDE RECORDS SUMMARY | 2025-03-07 03:17 | XMS_ITS | Encounter Summary ---
Author Organization [employer] Address [address] 7t [place] [address] Care Team Providers Care Clinical Tech Name Role Phone Anirudh Astudillo MD Primary Care Provide r Ryan Enriquez PharmD Unavailable [phone] Reason for Visit * Reason Comments Med Refill Encounter Details Date Type Department Care Team (Late st Contact Info) Description 03/02/2024 Refill [facility] MEDICINE [address] [place] [address] Steve Capps MD [address] [place] [address] Uncomplicated opioid dependence (CMS/HCC) Social History Tobacco [...] Description 05/03/2025 9:00 AM EST Office Visit [facility] MEDICINE [address] [place] [address] Steve Capps MD [address] [place] [address] 05/09/2025 1:15 PM EST Office Visit [address] [address] Anirudh Astudillo MD [address] [place] [address] documented as of this encounter Goals Goal [...] documented as of this encounter Care Teams Clinical Tech Relationship Specialty Start Date End Date Anirudh Astudillo MD [address] [place] [address] PCP - General Internal Medicine 02/14/17 Ryan Enriquez PharmD [address] [place] [address] Pharmacist Internal Medicine 11/01/22 documented as of this encounter
--- OUTSIDE RECORDS SUMMARY | 2025-03-07 03:17 | XMS_ITS | Encounter Summary ---
Author Organization [employer] Address [address] [facility] [address] 7t [place] [address] Care Team Providers Care Chemist Food Name Role Phone Anirudh Astudillo MD Primary Care Provide r Ryan Enriquez PharmD Unavailable [phone] Reason for Visit * Reason Comments Med Refill Encounter Details Date Type Department Care Team (Late st Contact Info) Description 03/03/2025 Refill [facility] MEDICINE [address] [place] [address] Serenity Johnson MD [address] [place] [address] Moderate persistent asthma without complication Social History Tobacco Use Types Packs/Day Years [...] Description 05/03/2025 9:00 AM EST Office Visit [address] [address] Steve Capps MD [address] [place] [address] 05/09/2025 1:15 PM EST Office Visit [address] [address] Anirudh Astudillo MD [address] [place] [address] documented as of this encounter Goals Goal Patient Goal Type Associated Problems Recent Progress Patient-Stated? Author Blood Pressure < 140/90 Blood Pressure Essential (primary) hypertension 128/83(2024 5:18 PM EDT) Ryan Nayak, PharmD Note: Unable to assess today/ revisit at next visit Increase coping skills to promote long-term recovery and improve ability to perform daily activities General On track( 025 3:44 PM EDT) Shy Fernandez, RN documented as of this encounter Visit Diagnoses Diagnosis Moderate persistent asthma without complication documented in this encounter Additional Health Concerns Assessment Noted Time PHQ-9 Depression Total Score: 0 05/31/19 25 10:24 AM EST documented as of this encounter Care Teams Chemist Food Relationship Specialty Start Date End Date Anirudh Astudillo MD [address] [place] [address] PCP - General Internal Medicine 02/14/17 Ryan Enriquez PharmD [address] [place] [address] Pharmacist Internal Medicine 11/01/22 documented as of this encounter
--- OUTSIDE RECORDS SUMMARY | 2025-03-07 03:17 | XMS_ITS | Encounter Summary ---
Author Organization [employer] Address [address] [facility] [address] 7t [place] [address] Care Team Providers Care Refrigeration Operator Name Role Phone nAirudh Astudillo MD Primary Care Provide r Ryan Enriquez PharmD Unavailable [phone] Reason for Visit * Reason Comments Med Refill Encounter Details Date Type Department Care Team (Late st Contact Info) Description 11/11/[address] [facility] MEDICINE [address] [place] [address] Steve Capps MD [address] [place] [address] Uncomplicated opioid dependence (CMS/HCC) Social History Tobacco [...] Description 05/03/2025 9:00 AM EST Office Visit [facility] MEDICINE [address] [place] [address] Steve Capps MD [address] [place] [address] 05/09/2025 1:15 PM EST Office Visit [address] [address] Anirudh Astudillo MD [address] [place] [address] documented as of this encounter Goals Goal [...] documented as of this encounter Care Teams Refrigeration Operator Relationship Specialty Start Date End Date Anirudh Astudillo MD [address] [place] [address] PCP - General Internal Medicine 02/14/17 Ryan Enriquez, JoseD [address] [place] [address] Pharmacist Internal Medicine 11/01/22 documented as of this encounter
--- OUTSIDE RECORDS SUMMARY | 2025-03-07 03:17 | XMS_ITS | Encounter Summary ---
Author Organization [employer] Address [address] [facility] [address] 7t [place] [address] Care Team Providers Care [employer] Financials Developer Name Role Phone Anirudh Astudillo MD Primary Care Provide r Ryan Enriquez PharmD Unavailable [phone] Encounter Details Date Type Department Care Team ([facility] st Contact Info) Description 08/25/2023 Orders Only [facility] MEDICINE [address] [place] [address] Risa Regalado RN Uncomplicated opioid dependence (CMS/HCC); [...] Description 05/03/2025 9:00 AM EST Office Visit [facility]INE [address] [place] [address] Steve Capps MD [address] [place] [address] 05/09/2025 1:15 PM EST Office Visit [facility] [address] [place] [address] Anirudh Astudillo MD [address] [place] [address] Scheduled Orders Name Type Priority Associated Diagnoses [...] hypertension 128/83(2024 5:18 PM EDT) Ryan Nayak, JoseD Note: Unable to assess today/ revisit [...] 2:01 PM EST 06/14/2024 8:24 AM EST [facility] - 06/15/2024 4:42 PM EST ----- ------- Name: Brett Arambula Age/Sex: 58/M : 1965 Unit#: [id number] Attend Dr: Sarika Parker MD Re06/13/24 Status: [facility] Location: [facility] Disch: ----- ------- SPEC : [id number] RECD: 06/14/24 STATUS: LAKISHA CRUZ NUM: [id number] DINAH: 06/13/24-[address] [facility] [address]: Sarika Parker MD ENTERED: 06/14/24 SP [...] A. CEDS Copies To: Anirudh Peterson MD [address] [address] Sarika Parker MD [facility] [address] [place] [phone] ----- ------- Signed (signature on file) Chinedu Kaiser MD 06/15/24 1642 ----- ------- END OF REPORT us Generic External Data Provider LAB BLOOD ORDERAB LES Final Result [facility] [address] [place] [address] [phone] * Hepatitis C Viral RNA, Quantitative, Real-Time PCR (01/13/2024 9:07 AM EDT) Hepatitis C Viral Load <15 NOT DETECTED NOT DETECTED IU/mL [facility] HCV Log PCR <1.18 NOT DETECTED NOT DETECTED Log IU/mL [facility] Comment:For additional infor mation, please refer tohttp://education.[employer]/faq/DKB32r1(This link is being provided for informational/educational purposes only.)THIS TEST WAS PERFORMED AT:[facility] [place] [id number] LO MD 01/13/2024 9:07 AM EDT 01/16/2024 8:54 AM EDT us Steve Capps MD LAB BLOOD ORDERABLES Final Res ult Performing Organization Address [facility] Co de Phone Number [facility] [address] [place] [address] [phone] documented in this encounter Visit Diagnoses Diagnosis Uncomplicated opioid dependence (CMS/HCC) (HCC) Opioid use disorder, mild, in early remission (CMS/HCC) (HCC) documented in this encounter Additional Health Concerns Assessment Noted Time PHQ-9 Depression Total Score: 5 05/26/19 24 2:40 PM EST documented as of this encounter Care Teams [employer] Developer Relationship Specialty Start Date End Date Anirudh Astudillo MD [address] [place] [address] PCP - General Internal Medicine 02/14/17 Ryan Enriquez PharmD [address] [place] [address] Pharmacist Internal Medicine 11/01/22 documented as of this encounter
--- OUTSIDE RECORDS SUMMARY | 2025-03-07 03:17 | XMS_ITS | Encounter Summary ---
Author Organization [employer] Address [address] [facility] 7t [place] [address] Care Team Providers Care Lan Manager Name Role Phone Anirudh Astudillo MD Primary Care Provide r Ryan Enriquez PharmD Unavailable [phone] Encounter Details Date Type Department Care Team (Latest Contact Info) Description 10/31/2020 Abstract [facility]VERSIONS Dental, Provider, DDS Social History Tobacco [...] Description 05/03/2025 9:00 AM EST Office Visit [address] [address] Steve Capps MD [address] [place] [address] 05/09/2025 1:15 PM EST Office Visit [facility] MEDICINE [address] [place] [address] Anirudh Astudillo MD [address] [place] [address] documented as of this encounter Visit Diagnoses Not on filedocumented in this encounter Care Teams Lan Manager Relationship Specialty Start Date End Date Anirudh Astudillo MD [address] [place] [address] PCP - General Internal Medicine 02/14/17 Ryan Enriquez PharmD [address] [place] [address] Pharmacist Internal Medicine 11/01/22 documented as of this encounter
--- OUTSIDE RECORDS SUMMARY | 2025-03-07 03:17 | XMS_ITS | Encounter Summary ---
Author Organization [employer] Address [address] [facility] [address] 7t [place] [address] Care Team Providers Care Tree Feller Name Role Phone Anirudh Astudillo MD Primary Care Provide r Ryan Enriquez PharmD Unavailable [phone] Reason for Visit * Reason Comments Med Refill Encounter Details Date Type Department Care Team (Late st Contact Info) Description 01/06/2024 Refill [facility] [address] [place] [address] Steve Capps MD 230 [place] [address] Uncomplicated opioid dependence (CMS/HCC) Social History Tobacco [...] Description 05/03/2025 9:00 AM EST Office Visit [facility] [address] [place] [address] Steve Capps MD [address] [place] [address] 05/09/2025 1:15 PM EST Office Visit [address] [address] Anirudh Astudillo MD [address] [place] [address] documented as of this encounter Goals Goal [...] documented as of this encounter Care Teams Tree Feller Relationship Specialty Start Date End Date Anirudh Astudillo MD [address] [place] [address] PCP - General Internal Medicine 02/14/17 Ryan Enriquez, JoseD [address] [place] [address] Pharmacist Internal Medicine 11/01/22 documented as of this encounter
--- OUTSIDE RECORDS SUMMARY | 2025-03-07 03:17 | XMS_ITS | Encounter Summary ---
Author Organization [employer] Address [address] [facility] [address] 7[address] [place] [address] Care Team Providers Care Cavalry Scout Name Role Phone Anirudh Atsudillo MD Primary Care Provide r Ryan Enriquez PharmD Unavailable [phone] Reason for Visit * Reason Comments Med Refill Encounter Details Date Type Department Care Team (Late st Contact Info) Description 06/22/2024 Refill [facility] [address] [place] [address] Steve Capps MD 230 [place] [address] Uncomplicated opioid dependence (CMS/HCC) Social History Tobacco [...] Description 05/03/2025 9:00 AM EST Office Visit [address] [address] Steve Capps MD [address] [place] [address] 05/09/2025 1:15 PM EST Office Visit [address] [address] Anirudh Astudillo MD [address] [place] [address] documented as of this encounter Goals Goal [...] documented as of this encounter Care Teams Cavalry Scout Relationship Specialty Start Date End Date Anirudh Astudillo MD [address] [place] [address] PCP - General Internal Medicine 02/14/17 Ryan Enriquez PharmD [address] [place] [address] Pharmacist Internal Medicine 11/01/22 documented as of this encounter
--- OUTSIDE RECORDS SUMMARY | 2025-03-07 03:17 | XMS_ITS | Encounter Summary ---
Author Organization [employer] Address 75 [facility] 7t [place] [address] Care Team Providers Care Instrumentation Technician Name Role Phone Anirudh Astudillo MD Primary Care Provide r Ryan Enriquez PharmD Unavailable [phone] Encounter Details Date Type Department Care Team (Latest Contact Info) Description 08/20/2021 Abstract [facility] Dental, Provider, DDS Social History Tobacco [...] Description 05/03/2025 9:00 AM EST Office Visit [address] [address] Steve Capps MD [address] [place] [address] 05/09/2025 1:15 PM EST Office Visit [facility] [address] [place] [address] Anirudh Astudillo MD [address] [place] [address] documented as of this encounter Visit Diagnoses Not on filedocumented in this encounter Care Teams Instrumentation Technician Relationship Specialty Start Date End Date Anirudh Astudillo MD 230 [place] [address] PCP - General Internal Medicine 02/14/17 Ryan Enriquez PharmD 230 [place] [address] Pharmacist Internal Medicine 11/01/22 documented as of this encounter
--- OUTSIDE RECORDS SUMMARY | 2025-03-07 03:17 | XMS_ITS | Encounter Summary ---
Author Organization [employer] Address [address] [facility] [address] 7t [place] [address] Care Team Providers Care Jailkeeper Name Role Phone Anirudh Astudillo MD Primary Care Provide r Ryan Enriquez PharmD Unavailable [phone] Reason for Visit * Reason Comments Med Refill Encounter Details Date Type Department Care Team (Late st Contact Info) Description 03/24/2023 Refill [facility] 230 [place] [address] Steve Capps MD 230 [place] [address] Uncomplicated opioid dependence (CMS/HCC) Social History Tobacco [...] Description 05/03/2025 9:00 AM EST Office Visit [facility] [address] [place] [address] Steve Capps MD [address] [place] [address] 05/09/2025 1:15 PM EST Office Visit [facility] [address] [place] [address] Anirudh Astudillo MD [address] [place] [address] documented as of this encounter Goals Goal [...] documented as of this encounter Care Teams Jailkeeper Relationship Specialty Start Date End Date Anirudh Astudillo MD [address] [place] [address] PCP - General Internal Medicine 02/14/17 Ryan Enriquez, JoseD [address] [place] [address] Pharmacist Internal Medicine 11/01/22 documented as of this encounter
== END ==
LOC: HO.SL 14:42
PROVIDERS: PCP Internal Medicine; Visit Provider Physician Assistant Medical
DX: G47.19 Other hypersomnia (principal); R06.83 Snoring
CPT/HCPCS: 95806

== ENCOUNTER → 2025-03-06 15:01 | Outpatient (BNV) | payer MEDICARE, MEDICAID, SELFPAY | PROVIDERS: PCP Internal Medicine; Visit Provider Psychiatry & Neurology Neurology | DX: G47.19 Other hypersomnia (principal); R06.83 Snoring | CPT/HCPCS: 95806 ==

== ENCOUNTER 2025-03-11 12:06 | Outpatient (REF) | payer MEDICARE, MEDICAID, SELFPAY ==
--- NOTE | ~2025-03-11 | XR_ITS ---
EXAMINATION: XR SHOULDER, LEFT CLINICAL INFORMATION: M25.519 - Pain in unspecified shoulder COMPARISON: None available. TECHNIQUE: Three views of the left shoulder. FINDINGS: Moderate glenohumeral arthritis. Mild-moderate acromioclavicular arthritis. Os acromiale with degenerative changes. Undersurface spurring of the acromion. No visible acute fracture, dislocation. No suspicious bony lesion. No cyst in the acromion. No abnormal soft tissue calcification. XR/XR shoulder LT min 2V IMPRESSION: Moderate glenohumeral arthritis. Mild-moderate acromioclavicular arthritis. Electronically signed by: Caden Vallecillo MD 03/12/2025 10:27 AM IABN
--- OUTSIDE RECORDS SUMMARY | 2025-03-11 16:06 | XMS_ITS | Encounter Summary ---
Author Organization [employer] Address [address] [facility] [address] 7t [place] [address] Care Team Providers Care Director Of Strategic Initiatives Name Role Phone Anirudh Astudillo MD Primary Care Provide r Ryan Enriquez PharmD Unavailable [phone] Reason for Visit * Reason Comments Med Refill Encounter Details Date Type Department Care Team (Late st Contact Info) Description 03/02/2024 Refill [facility] [address] [place] [address] Steve Capps MD 230 [place] [address] Uncomplicated opioid dependence (CMS/HCC) Social History Tobacco [...] Description 05/03/2025 9:00 AM EST Office Visit [facility] [address] [place] [address] Steve Capps MD [address] [place] [address] 05/09/2025 1:15 PM EST Office Visit [address] [address] Anirudh Astudillo MD [address] [place] [address] documented as of this encounter Goals Goal [...] documented as of this encounter Care Teams Director Of Strategic Initiatives Relationship Specialty Start Date End Date Anirudh Astudillo MD [address] [place] [address] PCP - General Internal Medicine 02/14/17 Ryan Enriquez PharmD 230 [place] [address] Pharmacist Internal Medicine 11/01/22 documented as of this encounter
--- OUTSIDE RECORDS SUMMARY | 2025-03-11 16:06 | XMS_ITS | Encounter Summary ---
Author Organization [employer] Address [address] [facility] [address] 7t [place] [address] Care Team Providers Care Avionics System Engineer Name Role Phone Anirudh Astudillo MD Primary Care Provide r Ryan Enriquez PharmD Unavailable [phone] Reason for Visit * Reason Comments Med Refill Encounter Details Date Type Department Care Team (Late st Contact Info) Description 11/11/2023 Refill [facility] [address] [place] [address] Steve Capps MD 230 [place] [address] Uncomplicated opioid dependence (CMS/HCC) Social History Tobacco [...] Description 05/03/2025 9:00 AM EST Office Visit [facility] [address] [place] [address] Steve Capps MD [address] [place] [address] 05/09/2025 1:15 PM EST Office Visit [address] [address] Anirudh Astudillo MD [address] [place] [address] documented as of this encounter Goals Goal [...] documented as of this encounter Care Teams Avionics System Engineer Relationship Specialty Start Date End Date Anirudh Astudillo MD [address] [place] [address] PCP - General Internal Medicine 02/14/17 Ryan Enriquez, JoseD [address] [place] [address] Pharmacist Internal Medicine 11/01/22 documented as of this encounter
--- OUTSIDE RECORDS SUMMARY | 2025-03-11 16:06 | XMS_ITS | Clinical Summary ---
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 Paco Hung. 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 Paco Hung. 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 Paco Hung. 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 Paco Hung. last seen 05/12/2022 He underwent a laparoscopic Right nephrectomy by Dr Cadena at [facility] Hepatitis C antibody test positive 05/19/2022 [...] regimen . Plan: Will discuss with his Mouse Breeder Dr. Donahue for best therapeutic intervention Advised [...] the fact that both him and his live in caregiver are confused about the medications he should [...] the fact that both him and his live in caregiver are confused about the medications he should [...] the fact that both him and his live in caregiver are confused about the medications he should [...] the fact that both him and his live in caregiver are confused about the medications he should [...] by our CDTM team ) I contacted live in caregiver who confirmed he only took Atenolol and Lisinopril today. I referred him to start a Medbox given the fact that both him and his live in caregiver are confused about the medications he should be on. Most recent, Bun and Creatinine done on: 09/07/2022 was within normal limits Plan: Clonidine 0.1 mg po x 1 given BP came down. 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 - Amlodipine filled at [facility]/ new order sent to [facility] pharmacy. Assessment & Plan (10/05/2022 1:33 PM [...] monitor labs and BP -referred today to guest services ambassador x annual eye exam and monitor blurry [...] EDT): Doing well, Seeing Dr Perkins at [facility] psychiatrist and a therapist On Clonazepam 0.5 mg po at bedtime Hydroxyzine 25 mg TID PRN Quetiapine 300 mg at bedtime spoke to Pharmacy he has 1 refill on Clonazepam and Hydroxyzine and 2 on Quetiapine Assessment & Plan (07/26/2023 11:05 AM EDT): Doing well, Seeing Dr Perkins at [facility] psychiatrist and a therapist On Clonazepam 0.5 mg po at bedtime Hydroxyzine 25 mg TID PRN Quetiapine 300 mg at bedtime spoke to Pharmacy he has 1 refill on Clonazepam and Hydroxyzine and 2 on Quetiapine His significant other is trying to transfer his care at [facility] Assessment & Plan (04/28/2023 3:32 PM EST): Doing well, Seeing Dr Perkins at [facility] psychiatrist and a therapist On Clonazepam 0.5 mg po at bedtime Hydroxyzine 25 mg TID PRN Quetiapine 300 mg at bedtime spoke to Pharmacy he has 1 refill on Clonazepam and Hydroxyzine and 2 on Quetiapine His significant other is trying to transfer his care at [facility] Assessment & Plan (05/19/2022 2:30 PM EST): Doing well, sees a psychiatrist and a therapist Encounters Date Type Department Care Team Description 03/04/2025 Telephone [facility] [address] [place] [address] Anirudh Astudillo MD chart prep 03/03/2025 Refill [facility] [address] [place] [address] Serenity Johnson MD Moderate persistent asthma without complication 02/26/2025 Patient Outreach [facility] [address] [place] [address] Anirudh Astudillo MD Pre-visit Planning (SDOH screening was completed on 05/17/2024) 02/08/2025 9:00 AM EDT Office Visit [facility] [place] [address] Steve Capps MD Opioid dependence on maintenance agonist therapy, no symptoms (CMS/HCC) (HCC) (Primary Dx); Tobacco use 02/08/2025 Travel 02/04/2025 Refill [facility] [address] [place] [address] Maya Larose, RN Uncomplicated opioid dependence (CMS/HCC) (HCC) 02/04/2025 Refill [facility] [address] [place] [address] Maya Larose, CANDACE 01/03/2025 Refill [facility] [address] [place] [address] Anirudh Astudillo MD Essential (primary) hypertension 12/31/2024 Telephone [facility] [address] [place] [address] Aniurdh Astudillo MD February recall from Last 3 [...] Description 05/03/2025 9:00 AM EST Office Visit [address] [address] Steve Capps MD [address] [place] [address] 05/09/2025 1:15 PM EST Office Visit [address] [address] Anirudh Astudillo MD [address] [place] [address] Health Maintenance Due Date Last Done Comments [...] track( 025 3:44 PM EDT) No Shy Mzt RN Procedures Procedure Name Priority Date/Time Associated [...] Positive( A) Negative 02/15/2024 5:39 PM EDT [facility] (CLIA #:[id number]) Comment: POSITIVE TEST RESULT. A positive Cologuard [...] Antoine et al, N Engl J Med 2014;370(14):4120-8592.) Cologuard may produce a false negative or false positive result (no colorectal cancer or precancerous polyp present at colonoscopy follow up). A negative Cologuard test result does not guarantee the absence of CRC or advanced adenoma (pre-cancer). The current Cologuard screening interval is every 3 years. ([place] [employer] Society and U.S. Multi-Society Task Force). Cologuard performance data in a 10,000 patient pivotal study using colonoscopy as the reference method can be accessed at the following location: www.Webbynode/results. Additional description of the Cologuard test process, warnings and precautions can be found at www.cologuard.com. Stool specimen (specimen) 02/08/2024 9:30 AM EDT 02/09/2024 1:01 PM EDT us Anirudh Boone MD LAB MOLECULAR DIAGNOS TICS ORDERABLES Final Result [facility] (CLIA #:[id number]) [place] [address], * (ABNORMAL) Hepatitis C Antibody with Reflex to HCV, RNA, Quantitative, Real- Time PCR (01/13/2024 9:07 AM EDT) Hepatitis C Antibody Reactive( A) Nonreactive [facility] Comment:Presumptive evidence of antibodies to HCV. Blood Venous blood specimen / Unknown 01/13/2024 9:07 AM EDT 01/13/2024 11:16 AM EDT Steve Capps MD LAB BLOOD ORDERABLES Final Res ult Performing Organization Address City/[facility]/ZIP Co de Phone Number [facility] [address] [place] [phone] * HIV-1/2 Antigen and Antibodies, Fourth Generation, with Reflexes (01/13/2024 9:07 AM EDT) HIV AB/AG Nonreactive Nonreactive [facility] Comment:HIV-1 p24 Ag and/or HIV-1/HIV-2 Ab not detected.A test result that is nonreactive does not exclude thepossibility of exposure to or infection with HIV-1 and/orHIV-2. Nonreactive results in this assay for individualswith prior exposure to HIV-1 and/or HIV-2 may be due toantigen and antibody levels that are below the limit ofdetection of this assay.The iOculi HIV Ag/Ab Combo assay result andsupplemental assay results should be interpreted inconjunction with the patient's clinical presentation,history and other laboratory results. If the results areinconsistent with clinical evidence, additional testing issuggested to confirm the result. Blood Venous blood specimen / Unknown 01/13/2024 9:07 AM EDT 01/13/2024 11:16 AM EDT us Steve Capps MD LAB BLOOD ORDERABLES Final Res ult Performing Organization Address [facility]/ZIP Co de Phone Number [facility] [address] [place] [phone] * (ABNORMAL) Lipid Panel, Standard (01/13/2024 9:07 AM EDT) Triglycerides 141 <150 mg/dL [facility] Comment:Desirable Triglyceri de: less than 150 mg/dLBorderline High Triglyceride 150-199 mg/dLHigh Triglyceride: 200-499 mg/dLVery High Triglyceride: greater than or equal to 5OO mg/dL Cholesterol 200(H) <200 mg/dL [facility] Comment:Desirable Cholestero l: less than 200 mg/dLBorderline High Cholesterol: 200-239 mg/dLHigh Cholesterol: greater than 239 mg/dL LDL Cholesterol Calculated 138(H) <100 mg/dL [facility] Comment:Desirable LDL: less than 100 mg/dLNear Optimal/Above Optimal LDL: 110- 129 mg/dLBorderline High LDL: 130-159 mg/dLHigh LDL: 160-189 mg/dLVery High LDL: greater than or equal to 190 mg/dL HDL Cholesterol 34(L) >40 mg/dL [facility] Comment:Desirable HDL: great er than 40 mg/dL Note: This HDL assay may give artificially low results in patients with liver disease. Blood Venous blood specimen / Unknown 01/13/2024 9:07 AM EDT 01/13/2024 11:16 AM EDT us Anirudh Boone MD LAB BLOOD ORDERABLES Final Result Performing Organization Address [facility]/ZIP Co de Phone Number [facility] [address] [place] [phone] * Fecal Globin by Immunochemistry (08/07/2022 6:00 AM EDT) Fecal Globin By Immunochemistry SEE NOTE [employer] [facility] Comment: FECAL GLOBIN BY IMMUNOCHEMISTRY Micro Number: [id number] Test Status: Final Specimen Source: Insure (tm) [...] S TOOLS ORDERABLES Final Result [facility] [address], [place] [address] [employer] [facility] [address] [place] [phone] from Last 3 Months or Most Recently Relevant to [place] [id number] [facility] Care Teams Senior Reliability Engineer Relationship Specialty Start Date End Date Anirudh Astudillo MD [address] [place], [place] PCP - General Internal Medicine 02/14/17 Ryan Enriquez PharmD [address] [place], [place] Pharmacist Internal Medicine 11/01/22
--- OUTSIDE RECORDS SUMMARY | 2025-03-11 16:06 | XMS_ITS | Encounter Summary ---
Author Organization [employer] Address [address] [facility] [address] 7t [place] [address] Care Team Providers Care University Partnership Rep Name Role Phone Anirudh Astudillo MD Primary Care Provide r Ryan Enriquez PharmD Unavailable [phone] Reason for Visit * Reason Comments Med Refill Encounter Details Date Type Department Care Team (Late st Contact Info) Description 06/22/2024 Refill [facility] 230 [place] [address] Steve Capps MD [address] [place] [address] Uncomplicated opioid dependence (CMS/HCC) Social History Tobacco [...] 05/03/2025 9:00 AM EST Office Visit [address] [address] Steve Capps MD [address] [place] [address] 05/09/2025 1:15 PM EST Office Visit [address] [address] Anirudh Astudillo MD [address] [place] [address] documented as of this encounter Goals Goal [...] documented as of this encounter Care Teams University Partnership Rep Relationship Specialty Start Date End Date Anirudh Astudillo MD [address] [place] [address] PCP - General Internal Medicine 02/14/17 Ryan Enriquez PharmD [address] [place] [address] Pharmacist Internal Medicine 11/01/22 documented as of this encounter
--- OUTSIDE RECORDS SUMMARY | 2025-03-11 16:06 | XMS_ITS | Clinical Summary ---
Author Organization [address] [facility] Address [address] [place] [address] Phone Care Team Providers Care Water Filtration Technician Name Role Phone Anirudh Peterson MD Primary [...] Health Maintenance Due Date Last Done Comments Colorectal Cancer Screening: Colonoscopy 1965 DTaP,Tdap,and Td Vaccines (1 - Tdap) 12/26/1986 Hepatitis B Vaccines (1 of 3 - 19+ 3-dose series) 12/26/1986 Pneumococcal Vaccine: 50+ Ye ars (1 of 1 - PCV) 12/26/2017 Zoster Vaccines (1 of 2) 12/26/2017 Cholesterol Screening (Lipid Panel) 02/24/2024 HIV Screening 02/24/2024 Hepatitis C Screening 02/24/2024 Medicare Annual Wellness Visit 02/24/2024 Social Influencers of Health Screening 02/24/2024 Depression Screening 04/18/2024 COVID-19 Vaccine (1 - 2024-2 6 season) 2024 Influenza Vaccine (#1) 2024 RSV Immunization Adult Patie nts (1 - 1-dose 75+ series) 12/26/2042 HIB Vaccines Aged Out No longer eligi [...] Insurance MEDICARE [place]ICA[place] - [place] Care Teams Water Filtration Technician Relationship Specialty Start Date End Date Anirudh Peterson MD [address] [place] [address] PCP - General Internal Medicine 02/24/24
--- OUTSIDE RECORDS SUMMARY | 2025-03-11 16:07 | XMS_ITS | Encounter Summary ---
Author Organization [employer] Address [address] [facility] [address] [place] [address] Care Team Providers Care Cable Reeler Name Role Phone Anirudh Astudillo MD Primary Care Provide r Ryan Enriquez PharmD Unavailable [phone] Reason for Visit * Reason Comments Med Refill Encounter Details Date Type Department Care Team (Late st Contact Info) Description 01/06/2024 Refill [facility] [address] [place] [address] Steve Capps MD [address] [place] [address] Uncomplicated opioid dependence (CMS/HCC) Social History Tobacco [...] Description 05/03/2025 9:00 AM EST Office Visit [facility] [address] [place] [address] Steve Capps MD [address] [place] [address] 05/09/2025 1:15 PM EST Office Visit [address] [address] Anirudh Astudillo MD [address] [place] [address] documented as of this encounter Goals Goal [...] documented as of this encounter Care Teams Cable Reeler Relationship Specialty Start Date End Date Anirudh Astudillo MD [address] [place] [address] PCP - General Internal Medicine 02/14/17 Ryan Enriquez, JoseD [address] [place] [address] Pharmacist Internal Medicine 11/01/22 documented as of this encounter
--- OUTSIDE RECORDS SUMMARY | 2025-03-11 16:07 | XMS_ITS | Encounter Summary ---
Author Organization [employer] Address [address] [facility] [facility] [address] 7[address] [place] [address] Care Team Providers Care Translator/Interpreter Name Role Phone Anirudh Astudillo MD Primary Care Provide r Ryan Enriquez PharmD Unavailable [phone] Reason for Visit * Reason Comments Med Refill Encounter Details Date Type Department Care Team (Late st Contact Info) Description 01/31/2023 Refill [facility] [address] [place] [address] Anirudh Astudillo MD [address] [place], [place] [phone] Pain Social History Tobacco Use Types Packs/Day [...] Description 05/03/2025 9:00 AM EST Office Visit [facility] [address] [place] [address] Steve Capps MD [address] [place] [address] 05/09/2025 1:15 PM EST Office Visit [facility] [address] [place] [address] Anirudh Astudillo MD [address] [place] [address] documented as of this encounter Goals Goal [...] documented as of this encounter Care Teams Translator/Interpreter Relationship Specialty Start Date End Date Anirudh Astudillo MD [address] [place] [address] PCP - General Internal Medicine 02/14/17 Ryan Enriquez, JoseD [address] [place] [address] Pharmacist Internal Medicine 11/01/22 documented as of this encounter
--- OUTSIDE RECORDS SUMMARY | 2025-03-11 16:07 | XMS_ITS | Encounter Summary ---
Author Organization [employer] Address [address] [facility] [address] 7[address] [place] [address] Care Team Providers Care Marine Structural Welder Name Role Phone Anirudh Astudillo MD Primary Care Provide r Ryan Enriquez PharmD Unavailable [phone] Reason for Visit * Reason Comments Med Refill Encounter Details Date Type Department Care Team (Late st Contact Info) Description 03/24/2023 Refill [facility] [address] [place] [address] Steve Capps MD [address] [place] [address] Uncomplicated opioid dependence (CMS/HCC) Social History Tobacco [...] 05/03/2025 9:00 AM EST Office Visit [facility] [address] [place] [address] Steve Capps MD [address] [place] [address] 05/09/2025 1:15 PM EST Office Visit [facility] [address] [place] [address] Anirudh Astudillo MD [address] [place] [address] documented as of this encounter Goals Goal [...] documented as of this encounter Care Teams Marine Structural Welder Relationship Specialty Start Date End Date Anirudh Astudillo MD [address] [place] [address] PCP - General Internal Medicine 02/14/17 Ryan Enriquez, JoseD [address] [place] [address] Pharmacist Internal Medicine 11/01/22 documented as of this encounter
--- OUTSIDE RECORDS SUMMARY | 2025-03-11 16:07 | XMS_ITS | Encounter Summary ---
Author Organization [employer] Address [address] [facility] 7t [place] [address] Care Team Providers Care Cloth Tearer Name Role Phone Anirudh Astudillo MD Primary Care Provide r Ryan Enriquez PharmD Unavailable [phone] Encounter Details Date Type Department Care Team (Latest Contact Info) Description 10/31/2020 Abstract [facility] CONVERSIONS Dental, Provider, DDS Social History [...] Description 05/03/2025 9:00 AM EST Office Visit [address] [address] Steve Capps MD [address] [place] [address] 05/09/2025 1:15 PM EST Office Visit [facility] [address] [place] [address] Anirudh Astudillo MD [address] [place] [address] documented as of this encounter Visit Diagnoses Not on filedocumented in this encounter Care Teams Cloth Tearer Relationship Specialty Start Date End Date Anirudh Astudillo MD [address] [place] [address] PCP - General Internal Medicine 02/14/17 Ryan Enriquez PharmD [address] [place] [address] Pharmacist Internal Medicine 11/01/22 documented as of this encounter
--- OUTSIDE RECORDS SUMMARY | 2025-03-11 16:07 | XMS_ITS | Encounter Summary ---
Author Organization [employer] Address [address] [facility] 7t [place] [address] Care Team Providers Care Automotive Parts Counter Person Name Role Phone Anirudh Astudillo MD Primary Care Provide r Ryan Enriquez PharmD Unavailable [phone] Encounter Details Date Type Department Care Team (Latest Contact Info) Description 08/20/2021 Abstract [facility] CONVERSIONS Dental, Provider, DDS Social History [...] Description 05/03/2025 9:00 AM EST Office Visit [address] [address] Steve Capps MD [address] [place] [address] 05/09/2025 1:15 PM EST Office Visit [facility] [address] [place] [phone] Anirudh Astudillo MD [address] [place] [address] documented as of this encounter Visit Diagnoses Not on filedocumented in this encounter Care Teams Automotive Parts Counter Person Relationship Specialty Start Date End Date Anirudh Astudillo MD [address] [place] [address] PCP - General Internal Medicine 02/14/17 Ryan Enriquez PharmD [address] [place] [address] Pharmacist Internal Medicine 11/01/22 documented as of this encounter
--- OUTSIDE RECORDS SUMMARY | 2025-03-11 16:07 | XMS_ITS | Encounter Summary ---
Author Organization [employer] Address [address] [facility] [address] 7[address] [place] [address] Care Team Providers Care Commissary Steward Name Role Phone Anirudh Astudillo MD Primary Care Provide r Ryan Enriquez PharmD Unavailable [phone] Reason for Visit * Reason Comments Med Refill Encounter Details Date Type Department Care Team (Late st Contact Info) Description 07/22/2023 Refill [facility] [address] [place] [address] Steve Capps MD [address] [place] [address] Uncomplicated opioid dependence (CMS/HCC) Social History Tobacco [...] Description 05/03/2025 9:00 AM EST Office Visit [facility] [address] [place] [address] Steve Capps MD [address] [place] [address] 05/09/2025 1:15 PM EST Office Visit [address] [address] Anirudh Astudillo MD [address] [place] [address] documented as of this encounter Goals Goal [...] documented as of this encounter Care Teams Commissary Steward Relationship Specialty Start Date End Date Anirudh Astudillo MD [address] [place] [address] PCP - General Internal Medicine 02/14/17 Ryan Enriquez, JoseD [address] [place] [address] Pharmacist Internal Medicine 11/01/22 documented as of this encounter
--- OUTSIDE RECORDS SUMMARY | 2025-03-11 16:07 | XMS_ITS | Encounter Summary ---
Author Organization [employer] Address [address] [facility] [address] 7[address] [place] [address] Care Team Providers Care Rotary Furnace Operator Name Role Phone Anirudh Astudillo MD Primary Care Provide r Ryan Enriquez PharmD Unavailable [phone] Encounter Details Date Type Department Care Team ([facility] st Contact Info) Description 03/04/2023 Abstract [facility] [address] [place] [address] Nina Goode Social History Tobacco Use Types [...] Description 05/03/2025 9:00 AM EST Office Visit [facility] [address] [place] [address] [phone] Steve Capps MD [address] [place] [address] [phone] 05/09/2025 1:15 PM EST Office Visit [address] [phone] Anirudh Astudillo MD [address] [place] [address] documented as of this encounter Goals Goal [...] documented as of this encounter Care Teams Rotary Furnace Operator Relationship Specialty Start Date End Date Anirudh Astudillo MD [address] [place] [address] [phone] PCP - General Internal Medicine 02/14/17 Ryan Enriquez PharmD [address] [place] [address] [phone] Pharmacist Internal Medicine 11/01/22 documented as of this encounter
--- OUTSIDE RECORDS SUMMARY | 2025-03-11 16:07 | XMS_ITS | Encounter Summary ---
Author Organization [employer] Address [address] [facility] [address] [place] [address] Care Team Providers Care Tooling Engineer Name Role Phone Anirudh Astudillo MD Primary Care Provide r Ryan Enriquez PharmD Unavailable [phone] Encounter Details Date Type Department Care Team ([facility] st Contact Info) Description 08/25/2023 Orders Only [facility] [address] [place] [address] Risa Regalado RN Uncomplicated opioid dependence (CMS/HCC); [...] Description 05/03/2025 9:00 AM EST Office Visit [facility] [address] [place] [address] Steve Capps MD [address] [place] [address] 05/09/2025 1:15 PM EST Office Visit [facility] [address] [place] [address] Anirudh Astudillo MD [address] [place] [address] Scheduled Orders Name Type Priority Associated Diagnoses [...] 2:01 PM EST 06/14/2024 8:24 AM EST [facility]S - 06/15/2024 4:42 PM EST ----- ------- Name: Brett Arambula Age/Sex: 58/M : 1965 Unit#: [id number] Attend Dr: Sarika Parker MD Re06/13/24 Status: [facility] Location: [facility] Disch: ----- ------- SPEC : [id number] RECD: 06/14/24 STATUS: LAKISHA CRUZ NUM: [id number] DINAH: 06/13/24-1401 [facility] DR: Sarika Parker MD ENTERED: 06/14/24 [...] A. CEDS Copies To: Anirudh Peterson MD [address] [address] Sarika Parker MD [facility] [address] [place] [address] ----- ------- Signed (signature on file) Chinedu Kaiser MD 06/15/24 1642 ----- ------- END OF REPORT us Generic External Data Provider LAB BLOOD ORDERAB LES Final Result [facility] [address] [place] [address] [phone] * Hepatitis C Viral RNA, Quantitative, Real-Time PCR (01/13/2024 9:07 AM EDT) Hepatitis C Viral Load <15 NOT DETECTED NOT DETECTED IU/mL [facility] HCV Log PCR <1.18 NOT DETECTED NOT DETECTED Log IU/mL [facility] Comment:For additional infor mation, please refer [email or web address].Kinsights/faq/[email or web address](This link is being provided for informational/educational purposes only.)THIS TEST WAS PERFORMED AT:[facility] [place] [phone] LO MD 01/13/2024 9:07 AM EDT 01/16/2024 8:54 AM EDT us Steve Capps MD LAB BLOOD ORDERABLES Final Res ult Performing Organization Address [facility] Co de Phone Number [facility] [address] [place] [address] [phone] documented in this encounter Visit Diagnoses Diagnosis Uncomplicated opioid dependence (CMS/HCC) (HCC) Opioid use disorder, mild, in early remission (CMS/HCC) (HCC) documented in this encounter Additional Health Concerns Assessment Noted Time PHQ-9 Depression Total Score: 5 05/26/19 24 2:40 PM EST documented as of this encounter Care Teams Tooling Engineer Relationship Specialty Start Date End Date Anirudh Astudillo MD [address] [place] [address] PCP - General Internal Medicine 02/14/17 Ryan Enriquez PharmD [address] [place] [address] Pharmacist Internal Medicine 11/01/22 documented as of this encounter
== END 2025-03-11 12:07 | disposition home or self-care (01) ==
LOC: HO.HOSX 12:06
PROVIDERS: Visit Provider Orthopaedic Surgery
DX: M19.012 Primary osteoarthritis, left shoulder (principal)
CPT/HCPCS: 20610; 73030; 99212; J0665; J1100; J2003

== ENCOUNTER 2025-03-11 14:12 | Outpatient (AMB) | payer MEDICARE, MEDICAID, SELFPAY ==
[2025-03-11 14:15] VITALS: BMI 32.5
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
== END 2025-03-11 14:41 | disposition home or self-care (01) ==
LOC: HO.HOS 14:12
PROVIDERS: PCP Internal Medicine; Visit Provider Orthopaedic Surgery
DX: M19.012 Primary osteoarthritis, left shoulder (principal)
CPT/HCPCS: 20610; 99213

== ENCOUNTER → 2025-03-11 14:22 | Outpatient (BNV) | payer MEDICARE, MEDICAID, SELFPAY | PROVIDERS: Visit Provider Radiology Diagnostic Ultrasound | DX: M19.012 Primary osteoarthritis, left shoulder (principal) | CPT/HCPCS: 73030 ==